=== PATIENT | female | born 1945 | race Caucasian/White ===

== ENCOUNTER 2020-01-15 16:00 | Inpatient (IN) | payer MEDICARE, SELFPAY ==
[2020-01-15 17:11] LABS: Bedside Glucose 167 mg/dL (70-110)
[2020-01-15 17:15] VITALS: BP 119/72; PULSE 86; RESP 16; TEMP 36.8; O2SAT 96; BMI 24.4; BMI 25.9
--- NOTE | 2020-01-15 17:49 | PCM.HP.STD ---
Problem List (1) Ischemic cerebrovascular accident (CVA) Status: Acute Comment: MRI on 01/02/20 shows multiple areas of restricted diffusion including the anterior corpus callosum, bilateral periventricular white matter, the left thalamus, left brachium pontis and the left cerebellum. These have been attributed to multiple ischemic infarcts more likely than not due to AF. (2) PAF (paroxysmal atrial fibrillation) Status: Acute Comment: recently started on Xarelto (3) Hyperlipidemia Status: Chronic Comment: LDL is 185 on lab at [facility] - she lists rosuvastatin as an allergy but cannot tell us the reaction. She has multiple allergies with unsure of reaction listed. (4) Diabetes mellitus type 2 in nonobese Status: Acute (5) Anticoagulated by anticoagulation treatment Status: Acute Comment: Xarelto - not on 15 mg BID initially...started on 20 mg daily at [facility] (6) Hypertension Status: Chronic (7) History of esophagitis Status: Chronic Comment: Had EGD in August and September 2008 pain History of Present Illness Date of Admission: 01/15/20 Chief Complaint: Disability secondary to multiple bilateral ischemic CVAs thought to be due to emboli secondary to paroxysmal atrial fibrillation. The patient is a 74 year old F with a past medical history of diabetes mellitus type 2, esophagitis, hyperlipidemia, hypertension, overactive bladder, anxiety and recent embolic CVA's in multiple BL areas. Her family reported to the [facility] that her speech has been slurred for about 6 months. She was started on Xarelto at the previous hospital. She was admitted to the IPRU at [facility] on for > 3 hours of therapy daily to restore her to or near to her prior level of functioning. Prior to the CVA's she was independent at home and in the community with no AD. She does the laundry and the cooking. She lives in a 2 story house the the bedroom is on the second floor. There is also a basement. Zena was apparently initially admitted to the hospital on 01/01/20 and tells me that she went to the ED because she fell and had R side weakness. She denies every being told she had AF. She also denies any hx of Blood clots or heart disease. She has never been a smoker. She tells me that she does not need to take a cholesterol lowering medication because the doctor said it would not fix the problem. All records from [facility] that came with her were reviewed. There are no labs other than a BMP and Lipid panel. The LDL is 185 and pt lists Crestor as an allergy but is not sure of the reaction. There is no MRI, CT, CTA, neurology consults, ECHO, H&P from the acute admission, DC summary and no other labs in the packet we were sent. She lists several ALLERGIES but, the sx are those of side effects and not rash, SOB, swelling. Past Medical History Past Medical History (Chronic Problems): Chronic Problems Hyperlipidemia (Chronic) LDL is 185 on lab at [facility] - she lists rosuvastatin as an allergy but cannot tell us the reaction. She has multiple allergies with unsure of reaction listed. Hypertension (Chronic) History of esophagitis (Chronic) Had EGD in August and September 2008 pain Allergies meperidine [From Demerol] Adverse Reaction (Mild, Verified 01/15/20 17:38) PT UNSURE OF REACTION dizzy caffeine Adverse Reaction (Verified 01/15/20 17:38) PT UNSURE OF REACTION chocolate flavor Adverse Reaction (Verified 01/15/20 17:38) PT UNSURE OF REACTION diphenhydramine [From Benadryl] Adverse Reaction (Verified 01/15/20 17:38) PT UNSURE OF REACTION Dizzy pioglitazone Adverse Reaction (Verified 01/15/20 17:38) PT UNSURE OF REACTION rosuvastatin Adverse Reaction (Verified 01/15/20 17:38) PT UNSURE OF REACTION Sulfa (Sulfonamide Antibiotics) Adverse Reaction (Verified 01/15/20 17:38) Nausea pablo tomatoes Adverse Reaction (Uncoded 01/15/20 17:38) PT UNSURE OF REACTION msg Adverse Reaction (Uncoded 01/15/20 17:38) PT UNSURE OF REACTION Home Medications: Ambulatory Orders Medication Instructions Recorded Aspirin [Aspirin, Baby] 81 mg PO DAILY@0800 01/15/20 Lisinopril [Zestril] 10 mg PO DAILY 01/15/20 Pantoprazole Sodium [Protonix] 40 mg PO DAILY 01/15/20 Rivaroxaban [Xarelto] 20 mg PO DAILY@1700 01/15/20 Surgical History: - - EGD X 2 in August and September of 2018. 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 Denies: Anorexia Eyes: Denies: Blurred vision, Double vision HEENT: Denies: Difficulty Swallowing, Head Aches, Sore Throat Cardiovascular: Denies: Chest Pain, Light Headedness, Palpitations Respiratory: Denies: Cough, Shortness of Breath Gastrointestinal: Denies: Abdominal Pain, Nausea, Vomiting Genitourinary: Reports: Incontinence. Denies: Dysuria Skin: Denies: Rash, Wounds Neurological: Reports: Balance problems, Change in Speech - but tells me that it is getting better., Focal weakness, - - she denies any problem with her thought processes. Denies: Difficulty swallowing, Seizures Psychiatric: Reports: Anxiety Hematologic/ Lymphatic: Denies: Hx of blood clot Unable to obtain accurate/complete ROS d/t: ROS is limited by encephalopathy due to CVA VTE Information - Inpt Only VTE Present on Admission: No VTE Mechan Device Prophylaxis: Knee High NEIL Hose VTE Pharm Prophylaxis ordered?: No Reason prophylaxis not ordered:: Treatment Not Indicated - She is on Xarelto Patient Problems: Active and Suspected Problems Ischemic cerebrovascular accident (CVA) (Acute) MRI on 01/02/20 shows multiple areas of restricted diffusion including the anterior corpus callosum, bilateral periventricular white matter, the left thalamus, left brachium pontis and the left cerebellum. These have been attributed to multiple ischemic infarcts more likely than not due to AF. PAF (paroxysmal atrial fibrillation) (Acute) recently started on Xarelto Diabetes mellitus type 2 in nonobese (Acute) Anticoagulated by anticoagulation treatment (Acute) Xarelto - not on 15 mg BID initially...started on 20 mg daily at [facility] - Physical Exam Vitals/I&O's: Vital Signs Temp Pulse Resp BP Pulse Ox 98.3 F 86 16 119/72 96 01/15/20 17:15 01/15/20 17:15 01/15/20 17:15 01/15/20 17:15 01/15/20 17:15 Oxygen Delivery Method Room Air Weight: 155 lb 10.342 oz Body Mass Index (BMI) 24.3 General: Alert, Cooperative, Well developed, Well nourished, - - drowsy, speech is somewhat slurred but intelligible. she is oriented to person and she knows that She is in the hospital at [place]. She can not tell me the month and she told me the year is 2001. she knows she is 74 YO. She is slow to answer questions. HEENT: Atraumatic, PERRLA, EOMI, Normocephalic, - - She is having trouble holding her head up and her chin is resting close to her chest most of the time Oral: No Gingival or Mucosal Lesions/ Ulcerations, Dry Mucosa Neck: Supple, No JVD, Negative Carotid Bruits, No Nodes, No Nuchal Rigidity, Trachea Midline, - - Carotids had brisk upstroke and good pulse volume bilaterally Lungs: Clear to auscultation, Diminished - jareth in the bases....only fair inspiratory effort. Her head is bent forward. She is not tachypneic and has no nconversational dyspnea., - - There is symmetrical chest expansion. Cardiovascular: Regular rate, Regular Rhythm, Normal S1, Normal S2, No murmurs, No Ectopic Activity, No rub noted, No Gallop Abdomen: Bowel Sounds Present, Soft, Non Tender, Non-Distended, - - No guarding with palpation Extremities: No clubbing, No cyanosis, No edema, No Calf Tenderness, Peripheral Pulses Normal Skin: No rashes, No breakdown - her bottom is reddened due to incontinence of urine ......no openings in the skin. Musculoskeletal: No Muscle Wasting, Arthritic Changes Neurological: Cranial nerves II-XII grossly intact - there is no facial asymmetry, the tongue protrudes on the midline, speech is slow but intelligible, - - She has 5/5 strength in the RUE and the R LE. She is able to lift the L arm off the bed a bit but, it drifts down to the bed prior to reaching a count of 10. She has 0/5 strength in the L leg. She has R side neglect. Unable to accurately assess the visual castaneda because she is unable to focus on me and she follows my hand. She blinks BL with confrontation. The left hand is held in flexion but she can extend the wrist a little. She is able to follow simple commands Psych/Mental Status: Flat Affect Laboratory Results 01/15/20 16:59: POC Glucose 167 H Current Medications Aspirin (Aspirin, Baby) 81 mg PO DAILY@0800 [facility] Calamine/Phenol (Calmoseptine Ointment) 1 applic TOPICAL BID TOMI; Protocol Insulin Human Lispro (Humalog Kwikpen (Bkc)) 0 unit SC ACHS TOMI; Protocol Lisinopril (Zestril) 10 mg PO DAILY TOMI Pantoprazole Sodium (Protonix) 40 mg PO DAILY TOMI Rivaroxaban (Xarelto) 20 mg PO DAILY@1700 [facility] Assessment/Plan All Active Problems Ischemic cerebrovascular accident (CVA) (Acute) PAF (paroxysmal atrial fibrillation) (Acute) Diabetes mellitus type 2 in nonobese (Acute) Anticoagulated by anticoagulation treatment (Acute) Impression 1. post stroke debility - We do not have adequate information from Previous hospital re: presentation to the ED on 12/31, why she is on Xarelto. I presume she has AF but, she denies a hx of AF. I have no CT and no MRI reports, no ECHO, no neurology consult and no cardiology consult report. Will requisition these from [facility]. 2. HTN 3. DM II 4. hx of esophagitis - on a PPI 5. hx of anxiety 6. HLD - not on a statin. LDL was 185 at [facility] and this is the only lab we got. PLAN PT for gait stability OT for ADL's ST for evaluation Analgesics as needed Bowel protocol Fall precautions Assess for Anxiety/Depression Continue Protonix 40 mg daily No DVT prophylaxis is needed because the patient is on Xarelto 20 mg p.o. daily Follow up with neurology and her primary care physician following DC from Rehab. May also need to follow up with cardiology if she has PAF. Check a CBC, CMP, hemoglobin A1c, TSH and a full lipid panel in the a.m. Hold oral hypoglycemic agents for now because I am unsure of how much she is going to take p.o. Will start a low medium sliding scale for insulin coverage. Consider starting an SSRI for treatment of anxiety/depression. It has been 2 weeks now since presentation to the hospital emergency room for stroke. Will adjust antihypertensives to keep the blood pressure less than 130/80. Goal LDL will be 70 or less Will talk with her dtr after I review her lab in the AM Inpatient E&M: [id number] Init Hosp L3
--- NOTE | 2020-01-15 17:58 | PCM.RU.PYE ---
Admission Information Primary Diagnosis:: Debility secondary to recent multiple bilateral embolic CVAs due to paroxysmal atrial fibrillation? Actual Problem List:: Falls, Skin Intergrity, Cognitve Impr/Memory Loss, Depression, Bladder Incontinence, Mobility Impaired, Self Care Deficit, BP, Hypertension, Fluid Change-Dehydration, Alteration-Leisure Activ. Potential Problem List:: DVT, Bleeding, Infection, UTI, Aspiration, Falls, Skin Integrity, Depression Risk of Complications DVT: NEIL Hightower, - - No DVT prophylaxis needed because she is on Xarelto 20 mg p.o. daily Bleeding: Monitor Lab Values, Nursing to Teach Precautions for anti-coagulation therapy., Wound, if applicable, to be assessed every shift., Stroke patients assessed for lethargy or change in status. Infection: Clinical Staff to Monitor for S/S of infection:, S/S of infection include fever, redness, warmth, etc. Urinary Tract Infection: Monitor for frequency, burning, discomfort, or incontinence., Nursing will obtain urine sample for urinalysis and C&S when ordered. Aspiration: Clinical staff will monitor for coughing, drooling, congestion., Speech will evaluate swallowing and dsyphasia., Nursing will monitor patient swallowing during meals. Falls: Patient will be evaluated for Fall Precautions, Patient will be placed on Fall Precautions as indicated per protocol. Skin Breakdown: Nursing will assess skin daily using assessment tool., Nursing will place on Skin Breakdown Precautions as indicated. Pain: Clinical staff will assess patient's pain level per protocol., Medications will be given, if needed, and the pain level reassessed., Other methods: Massage, distraction, decrease stimulus, etc. used PRN. Plan of Care Patient requires physician specializing in physical medicine and rehab oversight to provide close medical supervision of rehab issues including: Pain Management, Sleep Problems, Bowel and Bladder, Medical and co-morbidity Management, DVT prophylaxis, Rehabilitation Leadership, Coordination of treatment team Patient needs Physical Therapy: For a minimum of 1 hour, At least 5 out of 7 days Patient needs Physical Therapy to improve:: Mobility, Mobility, Mobility, Strengthening, Transfers, Stretching, ROM, Endurance, Stairs, Gait, Balance Patient needs Occupational Therapy: For a minimum of 1 hour, At least 5 out of 7 days Patient needs Occupational Therapy to improve ADL's incl.: Eating, Grooming, Bathing, Dressing, Toileting, Toilet transfers, Community Reintegration, Higher functioning activities, Household tasks, Adaptive Equipment, Splinting, Other activities as determined Patient requires speech therapy: For a minimum of 1 hour, At least 5 out of 7 days Patient requires speech therapy for: Swallowing, Cognition, Language Skills, Compensatory Strategies Patient requires 24/7 Rehabilitation Nursing for: Pain Issues, Identifying and preventing risk factors, Monitoring and reporting current medical conditions, Assisting with ambulation, transfer, and all ADL's, Teaching patients about disease process and medications, Family teaching, Providing safe environment, Bowel and Bladder Issues, Skin integrity, Medication Management Patient needs Automatic Die Cutting Machine Operator/ Case Management for: Discharge Planning, Arranging Home Equipment or Services, Family Interventions Patient needs Dietary and Nutrition Services for: Adequate Nutrition, Nutritional Supplements, Nutritional Education Goals Patient will remain: free from falls, or injury at time of discharge. Patient will perform bed mobility at: MOD I level of assist. Patient will complete transfers from bed to chair at: MOD I level of assist. Patient will ambulate: 100 feet, with MOD I assist, with LRD Patient will complete upper body dressing at: MOD I level of assist. Patient will complete lower body dressing at: MOD I level of assist. Patient will complete toileting at: MOD I level of assist. Patient will perform bathing at: MOD I level of assist. Patient will complete grooming at: MOD I level of assist. Patient will complete home management skills at: MOD I level of assist. Patient will achieve: 12 stairs, at MOD I assist Patient will have pain level of: of 3 or less Patient's skin will: remain intact, free from infection. Patient will receive: adequate nutrition. Discharge Planning Pt Prognosis for Sig. Practical Improv. w/in Reasonable Time: Good Estimated Length of stay (days): 28 Anticipated D/C Destination: To be determined Was Preadmission Assessment Accurate?: Yes
[2020-01-15] MEDS: Rivaroxaban 20 MG Tablet PO (19:07)
[2020-01-15] MEDS: Insulin Lispro 100 UNIT/ML INSULN.PEN SC ×2 (19:08→21:31)
[2020-01-15] MEDS: Glucerna Shake 120 ML LIQUID PO ×2 (19:10→21:28)
[2020-01-15 19:15] VITALS: BP 148/79; PULSE 84; RESP 16; TEMP 36.7; O2SAT 97
[2020-01-15] MEDS: Menthol/Lanolin/Calamine/Znox 113 GM Tube 1 APPLIC TOPICAL (21:28)
[2020-01-15] MEDS: Senna/Docusate Sodium 1 Tablet 2 TABLET PO (21:29)
[2020-01-15 21:56] LABS: Bedside Glucose 244 mg/dL (70-110)
[2020-01-16 01:23] VITALS: BMI 24.3
--- NOTE | 2020-01-16 03:37 | NURSING ---
pt awake since 0200 rounds pushing call light multiple times an hour and denies needs. pt repositioned and attends changed. fluids given. denies pain. pt denies television for entertainment. will continue to monitor.
[2020-01-16 06:09] VITALS: O2SAT 95
[2020-01-16 06:22] LABS: Hemoglobin 13.3 g/dL (12.0-15.0); Mean Corp Hgb Conc 32.4 g/dL (32-36); Mean Corpuscular Hgb 30.8 pg (27.0-32.0); Mean Corpuscular Volume 94.9 fL (81-99); Mean Platelet Vol. 10.3 fl (6.2-12.0); Platelet Count 404 K/mm3 (150-450); RBC Distribution Width CV 13.2 % (11.6-14.6); RBC Distribution Width SD 46.3 fl (35.1-43.9); Red Blood Count 4.32 M/mm3 (4.2-5.4); White Blood Count 9.7 K/mm3 (4.4-11.0)
[2020-01-16 06:40] VITALS: O2SAT 95
[2020-01-16 06:57] LABS: ALB/GLOB Ratio 0.8 RATIO (0.9-2.4); AST(SGOT) 10 U/L (15-37); Alanine Aminotransfer ALT/SGPT 23 U/L (13-56); Albumin, Serum 3.3 g/dL (3.2-5.0); Alkaline Phosphatase 64 U/L (45-117); Anion Gap 6 (5-15); BUN 21 mg/dL (7-18); BUN/Creat Ratio 22.5 RATIO (10-20); Calcium,Total 9.1 mg/dL (8.5-10.1); Chloride 104 mmol/L (98-107); Creatinine, Serum 0.93 mg/dL (0.55-1.02); EST Glomerular Filtration Rate 63 mL/min (>60); Est Glom Filt Rate - Afr Amer 76 mL/min (>60); Estimated Creatinine Clearance 52.39 ml/min; Glucose 211 mg/dL (74-106); Magnesium 2.2 mg/dL (1.6-2.6); Phosphorus 3.7 mg/dL (2.5-4.9); Potassium 4.2 mmol/L (3.5-5.1); Protein, Total 7.3 g/dL (6.4-8.2); Sodium Level 135 mmol/L (136-145); Thyroid Stim Hormone (TSH) 2.34 uIU/mL (0.358-3.74)
[2020-01-16 07:00] VITALS: BP 145/83; PULSE 84; RESP 18; TEMP 36.9; O2SAT 94
[2020-01-16 07:01] LABS: Bedside Glucose 231 mg/dL (70-110)
--- NOTE | 2020-01-16 07:18 | PCM.PN.BLA ---
Progress Note Afebrile Maintaining appropriate oxygen saturation on room air Poor oral intake since admission yesterday afternoon. Medication list was reviewed. We are holding the Glipizide because we are unsure of what her intake is going to be and she is at risk for hypoglycemia. She is currently on Xarelto 20 mg daily for anticoagulation for embolic CVAs. She is on lisinopril 10 mg daily for blood pressure control and she is on aspirin 81 mg daily. She is not on a statin despite the fact that her LDL is 185 because she is supposedly allergic. Has not been seen by PT/OT or ST yet...this will happen today. Nursing reports that she has been awake since 2 AM. Pushing the call button frequently. Was incontinent last night. They also tell me that the urine is very strong/foul smelling. We were able to obtain additional records from [facility] today and I reviewed them. She had a CT brain on 01/01/2020 that showed no acute intracranial abnormality but did show remote lacunar infarcts versus dilated perivascular spaces in the bilateral periventricular white matter. Transthoracic echocardiogram showed a normal ejection fraction of 60 to 65% with no wall motion abnormalities. The right ventricular systolic pressure was estimated at 24 mmHg. There was no interatrial shunt. There was trivial aortic valve insufficiency. The atria were normal in size. Bilateral carotid duplex shows the right internal carotid to have a 1 to 39% stenosis. The right vertebral artery was patent. The left internal carotid showed 1 to 39% stenosis. The left vertebral artery was patent but there were abnormal, high resistant waveforms noted. There was no hemodynamically significant stenosis in either subclavian artery. MRI showed multifocal areas of vague T2 prolongation and restricted diffusion in the anterior corpus callosum, the bilateral periventricular white matter, the left thalamus, the left brachium pontis and the left cerebellum. I suspect these represent lacunar infarcts. Reportedly these are embolic however, we received no history and physical, no DC summary and no cardiology or neurology consults. Will have to request these from [facility] All lab was personally reviewed. CBC is unremarkable. Sodium is mildly decreased at 135 and the BUN is increased to 21 with a creatinine of 0.93. LFTs are normal. Phosphorus and magnesium are within normal limits. TSH is normal at 2.34. Fasting blood sugar today is 231. She is currently on a sliding scale insulin for coverage until we see how much she is going to eat. HGBA1C is 7.1. TSH is normal at 2.34. Total cholesterol is 213 with an LDL of 136 and an HDL of 40. Triglycerides are 183. She seems very tired today.. She has been up since 2 AM and she tells me should woke up because there were kids in the gruber making noise and laughing. Lungs have diminished breath sounds with fair inspiratory effort and no wheezes, rhonchi or rails. Heart-regular rate and rhythm, no murmur, no gallop Abdomen-soft, nontender, nondistended, no guarding with palpation, no masses appreciated No peripheral edema Denies calf tenderness Persistent severe weakness on the left side with left side neglect I spoke with Zena's daughter Rachael and got some additional history. Zena had polio when she was very young and has had some increased weakness on the left side since then. She did not require an assistive device to ambulate at home. She also had esophagitis, likely due to reflux and has had her esophagus dilated twice. She was walking for 2 days after presenting to the ED but they declined. Rachael does not know when she was started on the Xarelto. AF was mentioned to Rachael but, she does not know for sure if Zena has this. Her mother has always been anxious but, she does not want to take medications, for anything. She is sensitive to all medication and develops allergies soon after she starts the medications. The reactions to the medications are vague and may be more imagined than real. Impressions 1. Post stroke debility. On the MRI report, dated 01/02/20, she had many BL lacunar infarcts but, she was still ambulatory at that time and now she has dense hemiparesis of the Left side Leg> arm and she has left side neglect. The CT was done on the and we did not receive any additional imaging reports. 2. remote hx of polio with some mild residual left side weakness. 3. DM II - non-compliant with diet per her dtr 4. HLD - supposedly intolerant of statins due to blurred vision and leg weakness.......not known to be SE's of crestor. She denies myalgia. 5. HTN - not adequately controlled. goal is less than 130/80 6. Hx of esophagitis, more likely than not secondary to chronic reflux. She has had esophageal dilation x2 in the past and she is chronically on Protonix 7. anxiety/depression - dtr reports that she had a nervous breakdown in the past about 50 years ago. She does not want to take medications so she is not on any pharmacologic treatment for anxiety or depression. 8.. cognitive dysfunction 9. Dehydration with an elevated BUN/creatinine ratio and very dry mucous membranes. Noncontrasted CT brain today since the weakness on the left side is profound and she has left-sided neglect I suspect she had a fairly large CVA and she is currently on Xarelto. Need to rule out hemorrhagic transformation. Start sertraline 50 mg p.o. daily Seroquel 12.5 mg p.o. nightly Start atorvastatin, medium intensity, 40 mg daily. Monitor for any adverse side effects Normal saline 500 cc bolus and then 75 cc/h Repeat BMP in the a.m. will need to follow up with neurology post DC Try and get EKG's, cardiology report on rhythm while at [facility]. Also request any the neurology notes. Overnight trending pulse ox Spent 60 minutes in the care of this pt today, talking with the dtr for hx, reviewing records from [place] we just received today, talking with the patient and re-examining, discussing treating anx/dep since depression is so common in post stroke patients and it affects recovery and prognosis. STROKE Vital Signs/Narrative: Vital Signs Pulse Ox 01/16/20 06:40 95 01/16/20 06:09 95 Inpatient E&M: [id number] Subs Hosp L3
[2020-01-16 08:06] LABS: Hemoglobin A1c 7.1 % (3.8-5.6)
[2020-01-16 08:24] LABS: Cholesterol 213 mg/dL (200); High Density Lipoprotein 40 mg/dL; Triglycerides 183 mg/dL; Very Low Density Lipoprotein 37 mg/dL (5-40)
[2020-01-16] MEDS: Lisinopril 10 MG Tablet PO (09:30)
[2020-01-16] MEDS: Insulin Lispro 100 UNIT/ML INSULN.PEN SC ×4 (09:30→22:09)
[2020-01-16] MEDS: Sertraline 50 MG Tablet PO (09:30)
[2020-01-16] MEDS: Aspirin 81 MG TAB.CHEW PO (09:30)
[2020-01-16] MEDS: Pantoprazole Sodium 40 MG Tablet PO (09:30)
[2020-01-16] MEDS: Menthol/Lanolin/Calamine/Znox 113 GM Tube 1 APPLIC TOPICAL ×2 (09:31→22:10)
[2020-01-16] MEDS: Glucerna Shake 120 ML LIQUID PO (09:31)
[2020-01-16 09:33] LABS: Mucous, Urine 0 SEEN /hpf (<or=2+); Red Blood Cells-Urine 0 SEEN /hpf (0-5); Squamous Epithelial Cells - UA 0 SEEN /hpf (5-10)
[2020-01-16 09:36] LABS: Color, Urine Yellow (Yellow); Glucose, Dipstick 1000 mg/dl (Normal); Ketone-Dipstick Negative (Negative); Leukocyte Esterase-Dipstick 25 /ul (Negative); Nitrite-Dipstick Positive (Negative); Occult Blood-Urine 50 /ul (Negative); Protein-Dipstick Negative (Negative); Specific Gravity, Urine 1.015 (1.002-1.030); Urine Bilirubin Dipstick Negative (Negative); Urine Clarity Clear (Clear); Urine Urobilinogen Normal (Normal)
[2020-01-16 09:42] LABS: Bacteria 2+ /hpf (None Seen); White Blood Cells 0-5 SEEN /hpf (0-5)
[2020-01-16] MEDS: 0.9% Normal Saline 1,000 ML 75 ML IV (10:30)
[2020-01-16 11:31] LABS: Bedside Glucose 248 mg/dL (70-110)
--- NOTE | 2020-01-16 12:16 | CT_ITS ---
STUDY: CT BRAIN WITHOUT CONTRAST REASON FOR EXAM: Female, 74 years old. POST CVA, ON THINNERS RADIATION DOSAGE (If Supplied By Facility): CTDIvol = ( 44.99 ) mGy, DLP = ( 745.49 ) mGycm TECHNIQUE: Transaxial CT imaging of the brain was performed without administration of intravenous contrast material. Individualized dose optimization techniques were used for this CT. COMPARISON: No relevant priors. FINDINGS: Normal soft tissue structures. Normal calvarium. There are atheromatous calcifications in the cavernous segments of the bilateral internal carotid arteries. There is mild cerebral atrophy with widening of the extra-axial spaces and ventricular dilatation. There are areas of decreased attenuation within the white matter tracts of the supratentorial brain, consistent with microvascular disease changes. More defined old lacunar infarcts are noted in the bilateral periventricular white matter as well one of these sites, on the right, extends into the upper aspect of the lateral basal ganglia. Chronic ischemic changes also noted in the anterior aspect of the bilateral thalami. Normal brainstem. Mild encephalomalacia suggesting old cortical infarct noted also in the lateral periphery of the left cerebellar hemisphere. There is no intracranial hemorrhage. There are no findings of an acute ischemic infarction. There is retained mucus in the posterior right sphenoid sinus. Otherwise, normal visualized paranasal sinuses. CT/Brain/Head without Contrast IMPRESSION: 1. Chronic involutional and ischemic changes of the brain, as described. No acute intracranial pathology. 2. Retained mucus in the posterior right sphenoid sinus. Electronically Signed: Jesus Fernandez MD at 14:50 EDT , Service support ,
[2020-01-16 14:53] VITALS: BMI 24.3
--- NOTE | 2020-01-16 15:46 | CHAPLAIN ---
Type of Pastoral Visit _x__ Initial Visit ___ Follow-up Visit ___ On-call Visit ___ General Patient Visit ___ Spiritual Assessment ___ Family Conference ___ Bereavement ___ Rapid Response ___ Code Blue ___ Other (describe below) Pastoral Care Referral From _x__ Patient _x__ Family ___ Nurse ___ Physician ___ Fur Sewer ___ Zigzag Appliquer ___ Other (describe below) Sacrament/Intervention ___ Active listening ___ Anointing ___ Anabaptism ___ Bereavement ___ Communion ___ Hannah exploration ___ ___ Life review _x__ Prayer ___ Reconciliation ___ Sacrament of Sick _x__ Supportive presence ___ Wedding ___ Other (describe below) Pastoral Comments patient responds appropriately to questions but does not engage much in conversation; pt is open to visits in the future
[2020-01-16 16:50] LABS: Bedside Glucose 222 mg/dL (70-110)
[2020-01-16] MEDS: Rivaroxaban 20 MG Tablet PO (17:51)
[2020-01-16 19:11] VITALS: BP 155/80; PULSE 84; RESP 16; TEMP 36.7; O2SAT 96
[2020-01-16] MEDS: 0.9% Normal Saline 1,000 ML 999 ML IV (19:59)
[2020-01-16 21:39] VITALS: PULSE 84; O2SAT 98
[2020-01-16] MEDS: QUEtiapine 25 MG Tablet 12.5 MG PO (22:08)
[2020-01-16] MEDS: Senna/Docusate Sodium 1 Tablet 2 TABLET PO (22:08)
[2020-01-16] MEDS: Atorvastatin Calcium 40 MG Tablet PO (22:09)
[2020-01-16] MEDS: Cefadroxil 500 MG CAPSULE 1000 MG PO (22:10)
[2020-01-16 23:15] LABS: Bedside Glucose 175 mg/dL (70-110)
[2020-01-17 05:00] VITALS: BMI 24.3
[2020-01-17 07:16] LABS: Bedside Glucose 192 mg/dL (70-110)
[2020-01-17 07:29] VITALS: O2SAT 96
[2020-01-17 07:34] LABS: Anion Gap 7 (5-15); BUN 18 mg/dL (7-18); BUN/Creat Ratio 20.4 RATIO (10-20); Calcium,Total 8.8 mg/dL (8.5-10.1); Chloride 108 mmol/L (98-107); Creatinine, Serum 0.88 mg/dL (0.55-1.02); EST Glomerular Filtration Rate 67 mL/min (>60); Est Glom Filt Rate - Afr Amer 81 mL/min (>60); Estimated Creatinine Clearance 51.23 ml/min; Glucose 176 mg/dL (74-106); Potassium 4.1 mmol/L (3.5-5.1); Sodium Level 139 mmol/L (136-145)
[2020-01-17] MEDS: Insulin Lispro 100 UNIT/ML INSULN.PEN SC ×4 (08:10→21:15)
[2020-01-17] MEDS: Menthol/Lanolin/Calamine/Znox 113 GM Tube 1 APPLIC TOPICAL ×2 (08:11→21:14)
[2020-01-17] MEDS: Aspirin 81 MG TAB.CHEW PO (08:11)
[2020-01-17] MEDS: Sertraline 50 MG Tablet PO (08:12)
[2020-01-17] MEDS: Pantoprazole Sodium 40 MG Tablet PO (08:12)
[2020-01-17] MEDS: Senna/Docusate Sodium 1 Tablet 2 TABLET PO ×2 (08:12→21:15)
[2020-01-17] MEDS: Lisinopril 20 MG Tablet PO (08:12)
[2020-01-17] MEDS: Cefadroxil 500 MG CAPSULE 1000 MG PO ×2 (08:12→21:14)
[2020-01-17 10:00] VITALS: BP 155/80; PULSE 90; RESP 16; TEMP 36.6; O2SAT 97
[2020-01-17 12:20] LABS: Bedside Glucose 224 mg/dL (70-110)
[2020-01-17 13:59] VITALS: BMI 24.3
[2020-01-17 16:46] LABS: Bedside Glucose 150 mg/dL (70-110)
[2020-01-17] MEDS: Rivaroxaban 20 MG Tablet PO (17:29)
[2020-01-17 18:47] VITALS: BP 169/99; PULSE 77; RESP 16; TEMP 36.8; O2SAT 96
[2020-01-17 19:47] VITALS: BMI 24.3
[2020-01-17] MEDS: Atorvastatin Calcium 40 MG Tablet PO (21:14)
[2020-01-17] MEDS: QUEtiapine 25 MG Tablet 12.5 MG PO (21:17)
[2020-01-17 22:41] LABS: Bedside Glucose 192 mg/dL (70-110)
[2020-01-17] MEDS: 0.9% Saline Lock 10 ML Syringe IV (22:58)
[2020-01-18 07:05] LABS: Bedside Glucose 173 mg/dL (70-110)
[2020-01-18] MEDS: Insulin Lispro 100 UNIT/ML INSULN.PEN SC ×3 (08:00→21:05)
[2020-01-18] MEDS: Aspirin 81 MG TAB.CHEW PO (08:00)
[2020-01-18] MEDS: Cefadroxil 500 MG CAPSULE 1000 MG PO ×2 (08:00→21:03)
[2020-01-18] MEDS: Pantoprazole Sodium 40 MG Tablet PO (08:00)
[2020-01-18] MEDS: Sertraline 50 MG Tablet PO (08:01)
[2020-01-18] MEDS: Lisinopril 20 MG Tablet PO (08:01)
[2020-01-18] MEDS: Menthol/Lanolin/Calamine/Znox 113 GM Tube 1 APPLIC TOPICAL ×2 (08:07→21:03)
[2020-01-18 08:14] VITALS: BP 151/96; PULSE 73; RESP 16; TEMP 36.8; O2SAT 97
[2020-01-18 11:31] LABS: Bedside Glucose 356 mg/dL (70-110)
[2020-01-18 12:59] VITALS: O2SAT 96
[2020-01-18 16:55] LABS: Bedside Glucose 141 mg/dL (70-110)
[2020-01-18 17:00] VITALS: BMI 24.3
[2020-01-18] MEDS: Rivaroxaban 20 MG Tablet PO (17:10)
[2020-01-18] MEDS: Atorvastatin Calcium 40 MG Tablet PO (21:03)
[2020-01-18] MEDS: QUEtiapine 25 MG Tablet 12.5 MG PO (21:03)
[2020-01-18 21:22] VITALS: BP 160/80; PULSE 77; RESP 16; TEMP 36.6; O2SAT 97
[2020-01-18 21:55] LABS: Bedside Glucose 183 mg/dL (70-110)
[2020-01-19 00:16] VITALS: BMI 24.3
[2020-01-19 06:36] LABS: Bedside Glucose 178 mg/dL (70-110)
[2020-01-19 07:14] VITALS: O2SAT 94
[2020-01-19 07:50] VITALS: BP 128/68; PULSE 75; RESP 16; TEMP 36.8; O2SAT 97
--- NOTE | 2020-01-19 07:50 | PN_ITS ---
Progress Note Day #4 cefadroxil Afebrile Systolic blood pressure is high and has ranged from 145/83-160 9/99 over the past few days. She is maintaining appropriate oxygen saturation on room air. Poor to fair oral intake. Nursing has been encouraged her to increase her fluid intake. Incontinent of urine Blood sugar record was reviewed. The majority of blood sugars are under 200 but yesterday at noon she had a blood sugar of 356. The overnight trending pulse ox was reviewed. 99.26% of the time the oxygen saturation above 90 but she had 1 desaturation to 68 that lasted 1 minute and 52 seconds and 1 desaturation to 57 with a heart rate of 33 four 1 minute at 42 seconds. Urine culture is positive for E. coli, greater than 100,000 colonies. It is p ansensitive. therapy notes were reviewed and also the nursing notes. She denies chest pain, shortness of breath, cough, sore throat, nausea, abdominal pain, dysuria, lightheadedness. She states she is still having some difficulty sleeping at night due to the noise from the door banging and voices in the gruber. She is sitting in the recliner by the window and appears in no acute distress. She is alert and oriented to person, place, month and year. She is still somewhat slow to respond to questions and commands. She is pleasant Speech is fluid. Mucous membranes are still a little dry. I encouraged her to increase her fluid intake. Lungs - CTA Heart-regular rate and rhythm, no ectopy, no atrial fibrillation, no gallop, no murmur Abdomen-soft, nontender, nondistended, normal bowel sounds heard No peripheral edema She is able to lift the left arm up on command and she was able to move her foot on the left but not able to lift the leg from the leg support. She has 5/5 strength on the right. Impressions 1. Post stroke debility-multiple small lacunar infarcts on both sides of the cerebral hemispheres and also in the midbrain presumed to be secondary to atrial fibrillation 2. Remote history of polio at 7 years of age 3. Diabetes mellitus type 2 4. Hypertension 5. Hyperlipidemia 6. 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 Sleep disordered breathing- Oral intake has been pretty good so will restart glipizide 5 mg twice daily and continue the sliding insulin scale for now. Blood pressures are consistently higher than I would like to see them. She is currently only on lisinopril 20 mg daily. Will add metoprolol XL 25 mg daily and continue to monitor blood pressures Recheck BMP in the a.m. she is going to need to see cariology following DC. She needs a 30 day even monitor and possibly a stress test to r/o ischemia as the etiology of suspected AF. TSH and mag were normal. Order oxygen at night and will need a sleep study post DC. STROKE Vital Signs/Narrative: Vital Signs Pulse Ox 01/19/20 07:14 94 Inpatient E&M: 54988 Subs Hosp L2
[2020-01-19] MEDS: Insulin Lispro 100 UNIT/ML INSULN.PEN SC ×4 (07:54→22:10)
[2020-01-19] MEDS: Pantoprazole Sodium 40 MG Tablet PO (07:55)
[2020-01-19] MEDS: Cefadroxil 500 MG CAPSULE 1000 MG PO ×2 (07:55→22:11)
[2020-01-19] MEDS: Lisinopril 20 MG Tablet PO (07:55)
[2020-01-19] MEDS: Aspirin 81 MG TAB.CHEW PO (07:55)
[2020-01-19] MEDS: Sertraline 50 MG Tablet PO (07:56)
[2020-01-19] MEDS: Menthol/Lanolin/Calamine/Znox 113 GM Tube 1 APPLIC TOPICAL ×2 (08:00→22:12)
[2020-01-19 08:43] VITALS: BMI 24.3
[2020-01-19 10:09] VITALS: BP 128/68; PULSE 75
[2020-01-19] MEDS: Metoprolol(XL)Succ 25 MG Tablet PO (10:09)
[2020-01-19 12:15] LABS: Bedside Glucose 292 mg/dL (70-110)
[2020-01-19] MEDS: 0.9% Saline Lock 10 ML Syringe IV ×2 (14:27→22:20)
[2020-01-19] MEDS: glipiZIDE 5 MG Tablet PO (16:34)
[2020-01-19] MEDS: Rivaroxaban 20 MG Tablet PO (16:37)
[2020-01-19 16:46] LABS: Bedside Glucose 257 mg/dL (70-110)
[2020-01-19 18:59] VITALS: BP 138/89; PULSE 90; RESP 16; TEMP 36.8; O2SAT 95
[2020-01-19 20:50] LABS: Bedside Glucose 162 mg/dL (70-110)
[2020-01-19] MEDS: QUEtiapine 25 MG Tablet 12.5 MG PO (22:09)
[2020-01-19] MEDS: Senna/Docusate Sodium 1 Tablet 2 TABLET PO (22:10)
[2020-01-19] MEDS: Atorvastatin Calcium 40 MG Tablet PO (22:10)
[2020-01-20 05:00] VITALS: BMI 24.3
[2020-01-20 06:11] LABS: Anion Gap 7 (5-15); BUN 22 mg/dL (7-18); BUN/Creat Ratio 22.1 RATIO (10-20); Calcium,Total 8.9 mg/dL (8.5-10.1); Chloride 104 mmol/L (98-107); EST Glomerular Filtration Rate 58 mL/min (>60); Est Glom Filt Rate - Afr Amer 70 mL/min (>60); Estimated Creatinine Clearance 45.09 ml/min; Glucose 173 mg/dL (74-106); Potassium 4.2 mmol/L (3.5-5.1); Sodium Level 137 mmol/L (136-145)
[2020-01-20 06:30] LABS: Bedside Glucose 169 mg/dL (70-110)
[2020-01-20 07:22] VITALS: BP 129/69; PULSE 74; RESP 16; TEMP 36.8; O2SAT 97
[2020-01-20] MEDS: Insulin Lispro 100 UNIT/ML INSULN.PEN SC ×3 (07:49→16:37)
[2020-01-20] MEDS: Senna/Docusate Sodium 1 Tablet 2 TABLET PO ×2 (07:50→22:49)
[2020-01-20] MEDS: Pantoprazole Sodium 40 MG Tablet PO (07:50)
[2020-01-20] MEDS: Cefadroxil 500 MG CAPSULE 1000 MG PO ×2 (07:50→22:50)
[2020-01-20] MEDS: Aspirin 81 MG TAB.CHEW PO (07:50)
[2020-01-20 07:51] VITALS: BP 129/69; PULSE 74
[2020-01-20] MEDS: Lisinopril 20 MG Tablet PO (07:51)
[2020-01-20] MEDS: Metoprolol(XL)Succ 25 MG Tablet PO (07:51)
[2020-01-20] MEDS: Sertraline 50 MG Tablet PO (07:51)
[2020-01-20 07:55] VITALS: BMI 24.3
[2020-01-20] MEDS: glipiZIDE 5 MG Tablet PO ×2 (07:57→16:37)
[2020-01-20] MEDS: Menthol/Lanolin/Calamine/Znox 113 GM Tube 1 APPLIC TOPICAL ×2 (08:00→22:50)
[2020-01-20] MEDS: 0.9% Saline Lock 10 ML Syringe IV (08:12)
--- NOTE | 2020-01-20 08:44 | PN_ITS ---
Progress Note Pt was seen on TEAM rounds today. Her Danny was present in the room.....pt is anxious abput not seeing her family and I thought it would help with depression. Dtr Aileen was on the phone. Day #5/7 of cefadroxil for E. coli urinary tract infection Afebrile VSS - BP's are coming down with the addition of Metoprolol to the antihypertens jose daniel regimen. Maintaining appropriate oxygen saturation on RA Oral intake is poor. Needing lots of encouragement to increase her fluid intake. Continues to be incontinent of urine. Having residuals - the one nursing was able to obtain was 95....difficult due to incontinence Discussed with nursing - no problems that need addressed Reviewed the PT/OT/ST notes and listened to the presentations on TEAM rounds. Medication list reviewed. Blood sugar record was reviewed. At bedtime sugar was 162 and the a.m. blood sugar was 169. Glipizide was restarted yesterday. All lab was personally reviewed. Potassium is 4.2 and the sodium is 137. BUN is 22 with a creatinine of 1 and a BUN/creatinine ratio of 22.1. alert, appropriate, eye contact is a little better than at admission when I am talking with her. MM - dry Heart- RRR Lungs - CTA abd - soft NT, ND, normal BS's no peripheral edema no rashes and no skin breakdown Impressions 1. debility due to multiple lacunar infarcts in BL areas of the brain. 2. Left side neglect with dense hemiparesis on the left, Leg > arm 3. DM II - coming under better control with restarting Glipizide. She is a good eater but, does not like to drink water. I encouraged her to increase her fluid intake. Will run IV NS overnight and hold during the day when she is in therapy. 4. Dehydration due to poor oral intake......continue to encourage her to increase the fluid intake. 5. HLD - she is tolerating the Atorvastatin with no adverse reactions reported. 6. Cognitive dysfunction secondary to having multiple embolic CVAs -there is potential here for multi-infarct dementia, will continue with speech therapy and right cognition 7. Sleep disordered breathing-2 L of oxygen anytime she is sleeping and will need a formal sleep study when she is discharged STROKE Vital Signs/Narrative: Vital Signs Temp Pulse Resp BP Pulse Ox 01/20/20 07:51 74 129/69 H 01/20/20 07:22 98.2 F 74 16 129/69 H 97 Inpatient E&M: [id number] Subs Hosp L2
--- NOTE | 2020-01-20 10:35 | CASEMGMT ---
Social Work IDT met with patient, and daughter via conference call for Team Meeting. Discussed patient's progress in therapy/ Pt is max x2 for transfers, leans heavily to the left, using Saralift for more functional transfers, standing and provides more stability. Pt does not have any left arm awareness, max x2 for EOB, min assist for grooming while seated, max fr bathing and UE dressing, dependent x2 for LE dressing. Pt is becoming more alert, but does needs cues for problem solving, having inattention, poor safety awareness. Pt needs distant supervision, cues small bites/sips, 90 degrees upright with meals. ST work on memory as well. Encouraging hydration. Pt to f/u with neurologist and internet webmaster and will need 30 day heart monitor at [place]. The plan is for pt to return home with but may need alternative plan. Explained insurance update 01/21 and continued stay is not guaranteed. will continue to follow and ReTeam next week. JONELLE PatelW
[2020-01-20 12:00] LABS: Bedside Glucose 184 mg/dL (70-110)
[2020-01-20] MEDS: 0.9% Normal Saline 1,000 ML 150 ML IV ×2 (16:32→23:30)
[2020-01-20] MEDS: Rivaroxaban 20 MG Tablet PO (16:37)
[2020-01-20 17:20] LABS: Bedside Glucose 172 mg/dL (70-110)
[2020-01-20 19:13] VITALS: BP 161/72; PULSE 80; RESP 16; TEMP 36.9; O2SAT 96
[2020-01-20 21:15] LABS: Bedside Glucose 140 mg/dL (70-110)
[2020-01-20] MEDS: QUEtiapine 25 MG Tablet 12.5 MG PO (22:48)
[2020-01-20] MEDS: Atorvastatin Calcium 40 MG Tablet PO (22:50)
[2020-01-21] MEDS: glipiZIDE 5 MG Tablet PO ×2 (06:48→16:32)
[2020-01-21 07:05] LABS: Bedside Glucose 123 mg/dL (70-110)
[2020-01-21 07:24] VITALS: BP 153/78; PULSE 77; RESP 16; TEMP 36.8; O2SAT 100
[2020-01-21] MEDS: Aspirin 81 MG TAB.CHEW PO (08:16)
[2020-01-21 08:17] VITALS: BP 153/78; PULSE 77
[2020-01-21] MEDS: Metoprolol(XL)Succ 25 MG Tablet PO ×2 (08:17→20:31)
[2020-01-21] MEDS: Sertraline 50 MG Tablet PO (08:17)
[2020-01-21] MEDS: Cefadroxil 500 MG CAPSULE 1000 MG PO ×2 (08:17→20:33)
[2020-01-21] MEDS: Senna/Docusate Sodium 1 Tablet 2 TABLET PO ×2 (08:17→20:32)
[2020-01-21] MEDS: Pantoprazole Sodium 40 MG Tablet PO (08:17)
[2020-01-21] MEDS: Lisinopril 20 MG Tablet PO (08:17)
[2020-01-21] MEDS: Menthol/Lanolin/Calamine/Znox 113 GM Tube 1 APPLIC TOPICAL ×2 (08:33→20:33)
--- NOTE | 2020-01-21 08:47 | PCM.PN.BLA ---
Progress Note Day 01/31 of cefadroxil Afebrile VSS-the blood pressure over the past 24 hours has ranged from 129/69-160 1/72 at 7:00 last night. Current blood pressure is 153/78. Maintaining appropriate oxygen saturation on RA Oral intake is poor. She received 2 Liters of NS last night She continues to be incontinent of urine Discussed with nursing - She had a brief period of confusion this AM....could not tell the nurse her name or her 's name.....she was mumbling. She then came back to baseline after she was awake a short time. Reviewed the PT/OT/ST notes Medication list reviewed. Blood sugar record was reviewed. All blood sugars for the past 36 hours have been less than 200. Fasting blood sugar this morning was 123 and the at bedtime blood sugar was 140. Denies pain, nausea, vomiting, constipation. Sleeping better at night. Alert, appears depressed today and is not smiling, not participating in conversation, tells me she ,misses her She was able to tell me she is in the hospital for a CVA, denies shortness of breath, denies cough Mucous membranes dry Lungs-clear to auscultation with diminished breath sounds, more likely than not secondary to poor inspiratory effort Heart-regular rate and rhythm Abdomen-soft, nontender with palpation, bowel sounds present No peripheral edema Persistence severe Left side weakness, Leg > ARM, persistent L side neglect, Still using the lolly lift to stand and has not ambulated. Impressions 1. Post stroke debility 2. Depression-started on sertraline at admission and currently tolerating without any significant side effects 3. Insomnia-improved with small dose of Seroquel at bedtime 4. Diabetes mellitus type 2 5. Urinary incontinence with some urine retention She was started on Premarin vaginal cream yesterday to improve genitourinary health and hopefully help with residual urine post void. She is tolerating the Atorvastatin with any reported SE. Increase the Metoprolol to BID Stop the SSI and continue to monitor the BS's AC and HS. Continue glipizide 5 mg p.o. twice daily STROKE Vital Signs/Narrative: Vital Signs Temp Pulse Resp BP Pulse Ox 01/21/20 08:17 77 153/78 H 01/21/20 07:24 98.2 F 77 16 153/78 H 100 Inpatient E&M: [id number] Subs Hosp L2
[2020-01-21 11:36] LABS: Bedside Glucose 127 mg/dL (70-110)
[2020-01-21 12:04] VITALS: BMI 24.3
[2020-01-21] MEDS: Rivaroxaban 20 MG Tablet PO (16:32)
[2020-01-21 17:01] LABS: Bedside Glucose 128 mg/dL (70-110)
[2020-01-21 19:21] VITALS: BP 129/71; PULSE 69; RESP 18; TEMP 36.9; O2SAT 97
[2020-01-21 20:31] VITALS: PULSE 69
[2020-01-21] MEDS: 0.9% Saline Lock 10 ML Syringe IV (20:31)
[2020-01-21] MEDS: QUEtiapine 25 MG Tablet 12.5 MG PO (20:32)
[2020-01-21] MEDS: Estrogens,Conj. 1 Tube 1 DOSE VAGINAL (20:32)
[2020-01-21] MEDS: Atorvastatin Calcium 40 MG Tablet PO (20:32)
[2020-01-21 20:43] VITALS: BMI 24.3
[2020-01-21 22:00] VITALS: PULSE 74; RESP 17
[2020-01-21 22:16] LABS: Bedside Glucose 161 mg/dL (70-110)
[2020-01-22 06:24] LABS: Hematocrit 37.7 % (37-47); Mean Corp Hgb Conc 31.8 g/dL (32-36); Mean Corpuscular Hgb 30.9 pg (27.0-32.0); Mean Corpuscular Volume 97.2 fL (81-99); Mean Platelet Vol. 10.5 fl (6.2-12.0); Platelet Count 371 K/mm3 (150-450); RBC Distribution Width CV 13.2 % (11.6-14.6); RBC Distribution Width SD 47.2 fl (35.1-43.9); Red Blood Count 3.88 M/mm3 (4.2-5.4); White Blood Count 9.3 K/mm3 (4.4-11.0)
[2020-01-22 06:37] LABS: Anion Gap 7 (5-15); BUN 23 mg/dL (7-18); BUN/Creat Ratio 27.1 RATIO (10-20); Calcium,Total 8.5 mg/dL (8.5-10.1); Chloride 105 mmol/L (98-107); Creatinine, Serum 0.85 mg/dL (0.55-1.02); EST Glomerular Filtration Rate 70 mL/min (>60); Est Glom Filt Rate - Afr Amer 84 mL/min (>60); Estimated Creatinine Clearance 53.04 ml/min; Glucose 148 mg/dL (74-106); Sodium Level 137 mmol/L (136-145)
[2020-01-22] MEDS: glipiZIDE 5 MG Tablet PO ×2 (06:42→16:45)
[2020-01-22 07:00] LABS: Bedside Glucose 148 mg/dL (70-110)
--- NOTE | 2020-01-22 07:47 | PCM.PN.BLA ---
Progress Note Cefadroxil 07/10 doses have been given. Afebrile BP yesterday was higher than it had been running in the morning but the BP at 19:21 was 129/71 and today the BP is 134/68. Metoprolol XL 25 mg Q HS was recently added to the drug regimen. HR is WNL She is maintaining appropriate oxygen saturation on room air and is on O2 at 2 L at night due to an abnormal overnight trending pulse ox. Oral intake was better yesterday and she took 1080 p.o. She continues to be incontinent of urine. PT/OT/ST notes were reviewed Blood sugar record was reviewed. All blood sugars since at bedtime on 01/19/2020 have been under 200. Sliding scale insulin was discontinued yesterday and the fasting blood sugar is 148 today. All lab was personally reviewed. Hemoglobin is 12 and the platelets and WBC count are within normal limits. The potassium is 4 and the BUN is 23 with a creatinine of 0.85 and a BUN/creatinine ratio which is still abnormal at 27.1. Calcium is within normal limits. She is c/o left knee pain yesterday and today. No hx of gout. Denies shortness of breath, cough, chest discomfort, nausea, lightheadedness. She did very well with breakfast today and cleaned her plate however she only drank a small glass of juice and left the coffee and the milk. It has been very difficult to keep her hydrated and she constantly has to be encouraged to drink more. Alert and oriented to person, place and month. She can not tell me the year but she can now tell me why she is here. NAD, appropriate, cooperative PERRL, EOMI MM are dry and there are no mucosal lesions The neck is supple and the trachea is midline, there are no cervical nodes Lungs are clear to auscultation with good air exchange Heart has a RRR with no gallop and no rub. There are no murmurs. Abdomen is soft, NT, ND and there are normal bowel sounds heard in all quadrants. There was no guarding with palpation CN's II - XII are grossly intact. She has no facial asymmetry. Persistent left side weakness. Still using the lolly lift. Requiring max assist or mod assist to stand and pivot. Has not ambulated, She was able to use the nu step for 5 minutes at L1. Still having left side neglect. Slow to respond and easily distracted. Requiring total assist to roll side to side in bed and total assist with dressing No peripheral edema, no calf tenderness Skin is warm and dry, no rashes, no breakdown. Flat affect Impressions 1. Debility due to multiple bilateral lacunar infarcts in different areas of the brain presumed to be due to atrial fibrillation. 2. Diabetes mellitus type 2 controlled at present 3. Hypertension 4. Hyperlipidemia 5. Sleep disordered breathing on O2 at at bedtime and anytime she is sleeping 6. Significant cognitive dysfunction and left side neglect Continue therapy Change the lisinopril to 10 mg p.o. twice daily and continue to monitor the BP's. The goal is consistently less than 130/80 Continue to encourage increased fluid intake. Inpatient E&M: [id number] Subs Hosp L2
[2020-01-22 08:00] VITALS: BP 134/68; PULSE 65; RESP 16; TEMP 37.1; O2SAT 98
[2020-01-22] MEDS: Menthol/Lanolin/Calamine/Znox 113 GM Tube 1 APPLIC TOPICAL ×2 (08:36→21:15)
[2020-01-22 08:38] VITALS: PULSE 65
[2020-01-22] MEDS: Metoprolol(XL)Succ 25 MG Tablet PO ×2 (08:38→21:17)
[2020-01-22] MEDS: Pantoprazole Sodium 40 MG Tablet PO (08:38)
[2020-01-22] MEDS: Cefadroxil 500 MG CAPSULE 1000 MG PO ×2 (08:38→21:15)
[2020-01-22] MEDS: Aspirin 81 MG TAB.CHEW PO (08:38)
[2020-01-22] MEDS: Sertraline 50 MG Tablet PO (08:40)
[2020-01-22] MEDS: Lisinopril 10 MG Tablet PO ×2 (12:07→21:18)
[2020-01-22] MEDS: Capsaicin 0.025% 1 APPLIC Tube TOPICAL ×2 (12:07→22:05)
[2020-01-22 12:10] LABS: Bedside Glucose 202 mg/dL (70-110)
[2020-01-22 15:20] VITALS: BMI 24.3
[2020-01-22] MEDS: Rivaroxaban 20 MG Tablet PO (16:45)
[2020-01-22 16:50] LABS: Bedside Glucose 154 mg/dL (70-110)
[2020-01-22 18:54] VITALS: BP 147/78; PULSE 66; RESP 16; TEMP 36.7; O2SAT 97
[2020-01-22 20:20] VITALS: BMI 24.3
[2020-01-22] MEDS: Atorvastatin Calcium 40 MG Tablet PO (21:15)
[2020-01-22] MEDS: QUEtiapine 25 MG Tablet 12.5 MG PO (21:16)
[2020-01-22] MEDS: Estrogens,Conj. 1 Tube 1 DOSE VAGINAL (21:16)
[2020-01-22 21:17] VITALS: PULSE 72
[2020-01-22 22:15] LABS: Bedside Glucose 201 mg/dL (70-110)
[2020-01-22] MEDS: 0.9% Saline Lock 10 ML Syringe IV (23:40)
[2020-01-23] MEDS: Capsaicin 0.025% 1 APPLIC Tube TOPICAL ×3 (05:06→20:31)
[2020-01-23] MEDS: glipiZIDE 5 MG Tablet PO ×2 (06:42→17:09)
[2020-01-23 06:55] LABS: Bedside Glucose 156 mg/dL (70-110)
[2020-01-23 07:00] VITALS: BP 111/54; PULSE 65; RESP 16; TEMP 37; O2SAT 95
[2020-01-23] MEDS: Aspirin 81 MG TAB.CHEW PO (07:38)
[2020-01-23 07:39] VITALS: PULSE 65
[2020-01-23] MEDS: Pantoprazole Sodium 40 MG Tablet PO (07:39)
[2020-01-23] MEDS: Metoprolol(XL)Succ 25 MG Tablet PO ×2 (07:39→20:37)
[2020-01-23] MEDS: Lisinopril 10 MG Tablet PO ×2 (07:39→20:36)
[2020-01-23] MEDS: Sertraline 50 MG Tablet PO (07:40)
[2020-01-23] MEDS: Menthol/Lanolin/Calamine/Znox 113 GM Tube 1 APPLIC TOPICAL ×2 (07:44→20:35)
[2020-01-23] MEDS: Cefadroxil 500 MG CAPSULE 1000 MG PO (10:11)
[2020-01-23 11:55] LABS: Bedside Glucose 240 mg/dL (70-110)
[2020-01-23 12:09] VITALS: BMI 24.3
[2020-01-23 16:41] LABS: Bedside Glucose 240 mg/dL (70-110)
[2020-01-23 17:01] LABS: Bedside Glucose 237 mg/dL (70-110)
[2020-01-23] MEDS: Rivaroxaban 20 MG Tablet PO (17:09)
[2020-01-23 19:28] VITALS: BP 123/64; PULSE 72; RESP 16; TEMP 36.7; O2SAT 95
[2020-01-23 20:00] VITALS: PULSE 72; RESP 16; O2SAT 95; BMI 24.3
[2020-01-23] MEDS: Estrogens,Conj. 1 Tube 1 DOSE VAGINAL (20:30)
[2020-01-23] MEDS: QUEtiapine 25 MG Tablet 12.5 MG PO (20:36)
[2020-01-23 20:37] VITALS: BP 123/64; PULSE 72
[2020-01-23] MEDS: Atorvastatin Calcium 40 MG Tablet PO (20:37)
[2020-01-23 20:56] LABS: Bedside Glucose 227 mg/dL (70-110)
--- NOTE | 2020-01-24 01:29 | NURSING ---
Reviewed and agree with EARTH SCIENCES PROFESSOR charting and documentation.
[2020-01-24] MEDS: Acetaminophen 325 MG Tablet 650 MG PO (04:06)
[2020-01-24] MEDS: Capsaicin 0.025% 1 APPLIC Tube TOPICAL ×3 (05:07→21:24)
[2020-01-24 06:35] LABS: Bedside Glucose 156 mg/dL (70-110)
[2020-01-24] MEDS: glipiZIDE 5 MG Tablet PO ×2 (06:38→16:07)
[2020-01-24 07:56] VITALS: BP 133/69; PULSE 64
[2020-01-24] MEDS: Pantoprazole Sodium 40 MG Tablet PO (07:56)
[2020-01-24] MEDS: Aspirin 81 MG TAB.CHEW PO (07:56)
[2020-01-24] MEDS: Lisinopril 10 MG Tablet PO ×2 (07:56→21:24)
[2020-01-24] MEDS: Metoprolol(XL)Succ 25 MG Tablet PO ×2 (07:56→21:24)
[2020-01-24] MEDS: Sertraline 50 MG Tablet PO (07:56)
[2020-01-24] MEDS: Menthol/Lanolin/Calamine/Znox 113 GM Tube 1 APPLIC TOPICAL ×2 (07:58→21:25)
[2020-01-24 08:06] VITALS: BP 133/69; PULSE 64; RESP 16; TEMP 36.8; O2SAT 98
[2020-01-24 08:53] VITALS: BMI 24.3
[2020-01-24 11:20] LABS: Bedside Glucose 251 mg/dL (70-110)
[2020-01-24] MEDS: Rivaroxaban 20 MG Tablet PO (16:06)
[2020-01-24 16:35] LABS: Bedside Glucose 133 mg/dL (70-110)
[2020-01-24 21:00] VITALS: BP 151/74; PULSE 62; RESP 16; TEMP 36.8; O2SAT 96; BMI 24.3
[2020-01-24 21:16] LABS: Bedside Glucose 110 mg/dL (70-110)
[2020-01-24] MEDS: QUEtiapine 25 MG Tablet 12.5 MG PO (21:23)
[2020-01-24] MEDS: Senna/Docusate Sodium 1 Tablet 2 TABLET PO (21:23)
[2020-01-24 21:24] VITALS: BP 151/74; PULSE 62
[2020-01-24] MEDS: Atorvastatin Calcium 40 MG Tablet PO (21:24)
[2020-01-24] MEDS: Estrogens,Conj. 1 Tube 1 DOSE VAGINAL (21:25)
[2020-01-25] MEDS: Capsaicin 0.025% 1 APPLIC Tube TOPICAL ×3 (05:11→20:43)
[2020-01-25] MEDS: glipiZIDE 5 MG Tablet PO ×2 (06:41→16:42)
[2020-01-25] MEDS: Menthol/Lanolin/Calamine/Znox 113 GM Tube 1 APPLIC TOPICAL ×2 (07:33→20:42)
[2020-01-25 07:34] VITALS: BP 120/60; PULSE 63
[2020-01-25] MEDS: Metoprolol(XL)Succ 25 MG Tablet PO ×2 (07:34→20:45)
[2020-01-25] MEDS: Aspirin 81 MG TAB.CHEW PO (07:34)
[2020-01-25] MEDS: Sertraline 50 MG Tablet PO (07:34)
[2020-01-25] MEDS: Lisinopril 10 MG Tablet PO ×2 (07:34→20:44)
[2020-01-25] MEDS: Pantoprazole Sodium 40 MG Tablet PO (07:34)
[2020-01-25 07:39] VITALS: BP 120/60; PULSE 63; RESP 17; TEMP 36.8; O2SAT 97
[2020-01-25 07:41] LABS: Bedside Glucose 147 mg/dL (70-110)
[2020-01-25 08:28] VITALS: BMI 24.3
[2020-01-25 12:00] LABS: Bedside Glucose 189 mg/dL (70-110)
[2020-01-25] MEDS: Rivaroxaban 20 MG Tablet PO (16:41)
[2020-01-25] MEDS: Acetaminophen 325 MG Tablet 650 MG PO (16:44)
[2020-01-25 16:56] LABS: Bedside Glucose 135 mg/dL (70-110)
[2020-01-25 20:10] VITALS: BP 122/75; PULSE 69; RESP 18; TEMP 36.7; O2SAT 98; BMI 24.3
[2020-01-25] MEDS: Estrogens,Conj. 1 Tube 1 DOSE VAGINAL (20:42)
[2020-01-25] MEDS: Atorvastatin Calcium 40 MG Tablet PO (20:44)
[2020-01-25] MEDS: Senna/Docusate Sodium 1 Tablet 2 TABLET PO (20:44)
[2020-01-25 20:45] VITALS: BP 122/75; PULSE 69
[2020-01-25] MEDS: QUEtiapine 25 MG Tablet 12.5 MG PO (20:45)
[2020-01-25 21:16] LABS: Bedside Glucose 190 mg/dL (70-110)
[2020-01-26] MEDS: Capsaicin 0.025% 1 APPLIC Tube TOPICAL ×3 (05:03→20:51)
[2020-01-26] MEDS: Acetaminophen 325 MG Tablet 650 MG PO (05:06)
[2020-01-26] MEDS: glipiZIDE 5 MG Tablet PO ×2 (07:06→16:37)
[2020-01-26 07:11] LABS: Bedside Glucose 162 mg/dL (70-110)
[2020-01-26] MEDS: Menthol/Lanolin/Calamine/Znox 113 GM Tube 1 APPLIC TOPICAL ×2 (07:40→20:38)
[2020-01-26] MEDS: Pantoprazole Sodium 40 MG Tablet PO (07:41)
[2020-01-26] MEDS: Aspirin 81 MG TAB.CHEW PO (07:41)
[2020-01-26] MEDS: Lisinopril 10 MG Tablet PO ×2 (07:42→20:40)
[2020-01-26] MEDS: Sertraline 50 MG Tablet PO ×2 (07:42→10:39)
[2020-01-26 07:44] VITALS: BP 104/58; PULSE 69
[2020-01-26] MEDS: Metoprolol(XL)Succ 25 MG Tablet PO ×2 (07:44→20:40)
[2020-01-26 07:47] VITALS: BP 104/58; PULSE 69; RESP 16; TEMP 36.7; O2SAT 95
[2020-01-26 09:56] VITALS: BMI 24.3
--- NOTE | 2020-01-26 10:34 | CASEMGMT ---
Social Work IDT met with patient and daughter via conference call for Team Meeting. Discussed patient's progress in therapy. Pt is using SaraLift for transfers, mod x2, standing 6-8 mins but leans heavily to the right, and pt does not initiate movements. Pt is slow to process and slower improvement, but physician explained pt had many strokes so it will take longer to see bigger improvements and clearer orientation. Pt having some improvement with strength in the left arm, must have cues d/t neglect and working on trunk control. Pt is set up for oral care, mod assist for grooming, max for UE ADLS, total x2 for LE ADLS and toileting. ST working on orientation, awareness, memory strategies, left neglect strategies. Pt continues to be encouraged to stay hydrated, pain is controlled. Pt appears more lethargic on this date and down. Physician increased pt's antidepressant. Pt express she just wants to go home. Physician and SW explained pt is not able to return home at this time as she requires too much assistance and cannot take care of her. IDT recommending SNF after insurance issues DC for [place]. The goal is for pt to remain in [place] to return home, but pt needs to be more independent for to safely care for her at home. Explained insurance NRD 01/28 and continued stay is not guaranteed. Will ReTeam next week. Spoke with pt's with above information and inquired about alternative DC plan. Discussed SNF and financial liability because it is not guaranteed insurance will approve SNF. Inquired about financial information for Medicaid and pt is over income and resources to qualify. Explained private pay - would prefer not to pay privately and would like to pt home. Explained will continue to follow but wanted him to be aware of the options. appreciative. Gabriela Gomes, [facility] TALENT ACQUISITION DIRECTOR
[2020-01-26 12:05] LABS: Bedside Glucose 204 mg/dL (70-110)
--- NOTE | 2020-01-26 13:00 | PN_ITS ---
Patient Problems: Active and Suspected Problems Ischemic cerebrovascular accident (CVA) (Acute) MRI on 01/02/20 shows multiple areas of restricted diffusion including the anterior corpus callosum, bilateral periventricular white matter, the left thalamus, left brachium pontis and the left cerebellum. These have been attributed to multiple ischemic infarcts more likely than not due to AF. PAF (paroxysmal atrial fibrillation) (Acute) recently started on Xarelto Diabetes mellitus type 2 in nonobese (Acute) Anticoagulated by anticoagulation treatment (Acute) Xarelto - not on 15 mg BID initially...started on 20 mg daily at [facility] Subjective: Zena was seen on team rounds today. Her daughter participated by phone. Afebrile VSS- BP in the evening is over goal but the AM pressure is good Maintaining appropriate oxygen saturation on RA Oral intake is fair. Still requiring a lot of encouragement to increase her fluid intake. Discussed with nursing - no problems that need addressed Reviewed the PT/OT/ST notes Medication list reviewed. Blood sugar record was reviewed and the blood sugars have come under good control with nearly all blood sugars less than 200 She appears to be down today and she admits to being sad. She misses her . Denies LLAMAS, pain, nausea, dysuria. She is still requiring the lolly lift to stand. Has not attempted walking. She has stood at the wall rail with one person assist for a few minutes. Frowning today and staring out the window and not making eye contact. Denies SOB, cough, chest pain, constipation. jayla is sleeping well at night now on only 12.5 mg of Seroquel. Alert, oriented to person and place. Mucous membranes are dry and we continually urged her to increase her water intake. She seems to do better when you give her a small glass of water rather than a big jug. Lungs-clear to auscultation Heart-regular rate and rhythm Abdomen-soft, nondistended, nontender, no guarding with palpation, bowel sounds heard in all quadrants No peripheral edema She was able to decaler my hand today with her left hand, still with left side neglect. Still not ambulating and needs the lolly lift. Impressions 1. Post stroke debility - multiple BL lacunar infarcts due to AF. 2. Depression-started on sertraline at admission and currently tolerating wit hout any significant side effects. Appears despondent today. Will increase the Sertraline to 100 mg daily 3. Insomnia-improved with small dose of Seroquel at bedtime. Will continue 4. Diabetes mellitus type 2 - well controlled at this time without hypoglycemia. Continue to monitor the BS's 5. Urinary incontinence with some urine retention - started on Premarin vaginal cream last week. - Physical Exam Vitals/I&O's: Vital Signs Temp Pulse Resp BP Pulse Ox 98.1 F 69 16 104/58 L 95 01/26/20 07:47 01/26/20 07:47 01/26/20 07:47 01/26/20 07:47 01/26/20 07:47 Oxygen Flow Rate (L/min) 2 Oxygen Delivery Method Room Air Weight: 151 lb 14.376 oz Body Mass Index (BMI) 24.3 Intake and Output for Last 24 Hours 01/24/20 01/25/20 01/26/20 23:59 23:59 23:59 Intake Total 720 / 720 920 / 920 120 / 120 Balance 720 / 720 920 / 920 120 / 120 Laboratory Results 01/25/20 16:44: POC Glucose 135 H 01/25/20 21:00: POC Glucose 190 H 01/26/20 06:47: POC Glucose 162 H 01/26/20 12:02: POC Glucose 204 H Current Medications Acetaminophen (Tylenol) 650 mg PO Q6H PRN PRN PRN Reason: Pain Score 1-10/10 Last Admin: 01/26/20 05:06 Dose: 650 mg Documented by: Aspirin (Aspirin, Baby) 81 mg PO DAILY@0800 [facility] Last Admin: 01/26/20 07:41 Dose: 81 mg Documented by: Atorvastatin Calcium (Lipitor) 40 mg PO QHS [facility] Last Admin: 01/25/20 20:44 Dose: 40 mg Documented by: Bisacodyl (Dulcolax) 10 mg RECTAL .PRN X 1 PRN PRN Reason: Constipation Calamine/Phenol (Calmoseptine Ointment) 1 applic TOPICAL BID [facility]; Protocol Last Admin: 01/26/20 07:40 Dose: 1 applicatio Documented by: Capsaicin (Zostrix) 1 applic TOPICAL TID [facility]; Protocol Last Admin: 01/26/20 05:03 Dose: 1 applicatio Documented by: Estrogens Conjugated (Premarin) 1 dose VAGINAL QHS [facility] Stop: 01/26/20 22:01 Last Admin: 01/25/20 20:42 Dose: 1 dose Documented by: Estrogens Conjugated (Premarin) 1 dose VAGINAL MoTh@2200 [facility] Glipizide (Glucotrol) 5 mg PO BIDAC [facility] Last Admin: 01/26/20 07:06 Dose: 5 mg Documented by: Lisinopril (Zestril) 10 mg PO BID [facility] Last Admin: 01/26/20 07:42 Dose: 10 mg Documented by: Magnesium Hydroxide (Milk Of Magnesia) 30 ml PO .PRN X 1 PRN PRN Reason: Constipation Metoprolol Succinate (Toprol Xl (Beta Issac)) 25 mg PO BID [facility] Last Admin: 01/26/20 07:44 Dose: 25 mg Documented by: Pantoprazole Sodium (Protonix) 40 mg PO DAILY [facility] Last Admin: 01/26/20 07:41 Dose: 40 mg Documented by: Quetiapine Fumarate (Seroquel) 12.5 mg PO QHS [facility] Last Admin: 01/25/20 20:45 Dose: 12.5 mg Documented by: Rivaroxaban (Xarelto) 20 mg PO DAILY@1700 [facility] Last Admin: 01/25/20 16:41 Dose: 20 mg Documented by: Senna/Docusate Sodium (Senokot-S, Cammie-Colace) 2 tablet PO BID [facility] Last Admin: 01/26/20 07:45 Dose: Not Given Documented by: Sertraline HCl (Zoloft) 100 mg PO DAILY [facility] Sodium Chloride () 10 - 40 ml IV UD PRN PRN Reason: SALINE FLUSH Last Admin: 01/22/20 23:40 Dose: 10 ml Documented by: Medical Necessity - Tobacco Use Smoking Status: Never smoker Tobacco Use: Non-smoker Assessment/Plan All Active Problems Ischemic cerebrovascular accident (CVA) (Acute) PAF (paroxysmal atrial fibrillation) (Acute) Diabetes mellitus type 2 in nonobese (Acute) Anticoagulated by anticoagulation treatment (Acute) Inpatient E&M: [id number] [facility] Hosp L2
[2020-01-26] MEDS: Rivaroxaban 20 MG Tablet PO (16:37)
[2020-01-26 17:00] LABS: Bedside Glucose 191 mg/dL (70-110)
[2020-01-26] MEDS: Senna/Docusate Sodium 1 Tablet 2 TABLET PO (20:39)
[2020-01-26] MEDS: Estrogens,Conj. 1 Tube 1 DOSE VAGINAL (20:39)
[2020-01-26] MEDS: Atorvastatin Calcium 40 MG Tablet PO (20:39)
[2020-01-26 20:40] VITALS: BP 142/76; PULSE 72
[2020-01-26] MEDS: QUEtiapine 25 MG Tablet 12.5 MG PO (20:40)
[2020-01-26 20:52] VITALS: BP 142/76; PULSE 72; RESP 16; TEMP 36.7; O2SAT 94
[2020-01-26 20:56] LABS: Bedside Glucose 171 mg/dL (70-110)
[2020-01-27 00:05] VITALS: BMI 24.3
[2020-01-27] MEDS: Capsaicin 0.025% 1 APPLIC Tube TOPICAL ×3 (05:56→20:03)
[2020-01-27] MEDS: glipiZIDE 5 MG Tablet PO ×2 (06:36→16:20)
[2020-01-27 06:45] LABS: Bedside Glucose 147 mg/dL (70-110)
[2020-01-27 07:23] VITALS: BP 109/62; PULSE 66; RESP 16; TEMP 36.8; O2SAT 94
[2020-01-27 07:28] VITALS: BP 109/62; PULSE 66
[2020-01-27] MEDS: Metoprolol(XL)Succ 25 MG Tablet PO ×2 (07:28→20:05)
[2020-01-27] MEDS: Senna/Docusate Sodium 1 Tablet 2 TABLET PO (07:28)
[2020-01-27] MEDS: Sertraline 100 MG Tablet PO (07:28)
[2020-01-27] MEDS: Lisinopril 10 MG Tablet PO ×2 (07:28→20:04)
[2020-01-27] MEDS: Menthol/Lanolin/Calamine/Znox 113 GM Tube 1 APPLIC TOPICAL ×2 (07:28→20:07)
[2020-01-27] MEDS: Pantoprazole Sodium 40 MG Tablet PO (07:29)
[2020-01-27] MEDS: Aspirin 81 MG TAB.CHEW PO (07:29)
[2020-01-27 09:20] VITALS: BMI 24.3
[2020-01-27] MEDS: amLODIPine 2.5 MG Tablet PO (11:33)
[2020-01-27 11:40] LABS: Bedside Glucose 360 mg/dL (70-110)
--- NOTE | 2020-01-27 15:54 | CHAPLAIN ---
Type of Pastoral Visit ___ Initial Visit _x__ Follow-up Visit ___ On-call Visit ___ General Patient Visit ___ Spiritual Assessment ___ Family Conference ___ Bereavement ___ Rapid Response ___ Code Blue ___ Other (describe below) Pastoral Care Referral From _x__ Patient ___ Family ___ Nurse ___ Physician ___ Improvement Lead ___ Turf And Grounds Supervisor ___ Other (describe below) Sacrament/Intervention _x__ Active listening ___ Anointing ___ Religious ___ Bereavement ___ Communion ___ Hannah exploration ___ ___ Life review _x__ Prayer ___ Reconciliation ___ Sacrament of Sick _x__ Supportive presence ___ Wedding ___ Other (describe below) Pastoral Comments patient talks of random things at first; later pt appears to have more focused thoughts; pt leaning forward in chair but states that she is fine and is comfortable; pt is slow of speech and response but does continue into conversation if given time; pt welcomed prayer and talked out loud when prayer focused on getting home when pt said she that's what I want
[2020-01-27] MEDS: Rivaroxaban 20 MG Tablet PO (16:20)
[2020-01-27 16:55] LABS: Bedside Glucose 215 mg/dL (70-110)
[2020-01-27 18:46] VITALS: BP 127/64; PULSE 74; RESP 16; TEMP 36.6; O2SAT 94
[2020-01-27 19:41] VITALS: BMI 24.3
[2020-01-27 20:05] VITALS: PULSE 72
[2020-01-27] MEDS: QUEtiapine 25 MG Tablet 12.5 MG PO (20:05)
[2020-01-27] MEDS: Atorvastatin Calcium 40 MG Tablet PO (20:06)
[2020-01-27 21:30] LABS: Bedside Glucose 212 mg/dL (70-110)
[2020-01-27 21:56] VITALS: O2SAT 2
[2020-01-28] MEDS: Capsaicin 0.025% 1 APPLIC Tube TOPICAL ×3 (05:12→20:30)
[2020-01-28] MEDS: glipiZIDE 5 MG Tablet PO ×2 (06:32→16:39)
[2020-01-28 06:41] LABS: Hematocrit 36.7 % (37-47); Hemoglobin 11.6 g/dL (12.0-15.0)
[2020-01-28 07:00] LABS: Bedside Glucose 165 mg/dL (70-110)
[2020-01-28 07:06] LABS: Anion Gap 8 (5-15); BUN 25 mg/dL (7-18); BUN/Creat Ratio 26.5 RATIO (10-20); Calcium,Total 8.6 mg/dL (8.5-10.1); Chloride 107 mmol/L (98-107); Creatinine, Serum 0.94 mg/dL (0.55-1.02); EST Glomerular Filtration Rate 62 mL/min (>60); Est Glom Filt Rate - Afr Amer 75 mL/min (>60); Estimated Creatinine Clearance 47.96 ml/min; Glucose 168 mg/dL (74-106); Magnesium 2.2 mg/dL (1.6-2.6); Potassium 3.8 mmol/L (3.5-5.1); Sodium Level 139 mmol/L (136-145)
[2020-01-28 07:40] VITALS: PULSE 63
[2020-01-28] MEDS: Pantoprazole Sodium 40 MG Tablet PO (07:40)
[2020-01-28] MEDS: Metoprolol(XL)Succ 25 MG Tablet PO ×2 (07:40→20:30)
[2020-01-28] MEDS: amLODIPine 2.5 MG Tablet PO (07:40)
[2020-01-28] MEDS: Aspirin 81 MG TAB.CHEW PO (07:40)
[2020-01-28] MEDS: Lisinopril 10 MG Tablet PO ×2 (07:42→20:31)
[2020-01-28] MEDS: Sertraline 100 MG Tablet PO (07:42)
[2020-01-28] MEDS: Menthol/Lanolin/Calamine/Znox 113 GM Tube 1 APPLIC TOPICAL ×2 (07:46→20:32)
[2020-01-28 07:54] VITALS: BP 107/62; PULSE 63; RESP 16; TEMP 36.4; O2SAT 100
--- NOTE | 2020-01-28 09:42 | PN_ITS ---
Progress Note She finished 7 days of antibiotics for urinary tract infection Afebrile since admission Blood pressure is well controlled. Heart rate is within normal limits She is maintaining appropriate oxygen saturation on room air while awake and on a 2 L nasal cannula while sleeping due to sleep disordered breathing..... At this point without a formal sleep study I do not know if this is peripheral or central in origin. Oral intake is erratic. She continually is urged to increase her fluid intake. Still incontinent of urine Blood sugar record was reviewed. Blood sugar spiked to 360 yesterday prior to lunch. The fasting was 147. The 4 PM was 215 and the at bedtime was 212. No hypoglycemia. She denies shortness of breath, cough, chest pain, nausea/vomiting, constipation. She is sleeping well at night now. She is very easily distracted and when I am talking to her she is trying to watch television and not making eye contact. She is complaining of left hip pain today. I reviewed the PT and OT notes from 01/27/2020. She is able to stand with the assistance of the [place] lift 6 to 8 minutes. Standing 2 to 3 minutes at the wall well with maximum assistance to maintain upright posture. She now leans forward into the left. Not ambulating. Nursing reports no problems. Alert but easily distractible. Watching TV while I am talking to her and only occasionally making eye contact. Mucous membranes are still dry Lungs-clear to auscultation Heart-regular rate and rhythm, no gallop Abdomen-soft, nontender, nondistended, normal bowel sounds, no guarding with palpation No peripheral edema No radicular pain in the left lower extremity with extension of the leg at the knee Unable to maintain upright posture in the wheelchair and she is leaning to the left. Impressions 1. Debility due to multiple bilateral lacunar infarcts in different areas of the brain presumed to be due to atrial fibrillation. 2. Diabetes mellitus type 2- afternoon sugars are over 200 and she is eating well now. Will increase the Glipizide to 10 mg in the AM and 5 mg PM and continue to monitor the blood sugars AC and HS 3. Hypertension-controlled 4. Hyperlipidemia 5. Sleep disordered breathing on O2 at at bedtime and anytime she is sleeping- needs a formal sleep study at discharge 6. Significant cognitive dysfunction and left side neglect 7. Urinary incontinence with retention less than 200 cc. Has been on Premarin vaginal cream for 1 week and is now on twice weekly regimen. Will check 3 more post void residuals 8. Depression-now on sertraline 100 mg p.o. daily STROKE Vital Signs/Narrative: Vital Signs Temp Pulse Resp BP Pulse Ox 01/28/20 07:54 97.5 F L 63 16 107/62 100 01/28/20 07:40 63 Inpatient E&M: [id number] Subs Hosp L2
[2020-01-28 10:08] VITALS: BMI 24.3
[2020-01-28] MEDS: Acetaminophen 500 MG Tablet 1000 MG PO ×3 (12:05→20:30)
[2020-01-28 12:20] LABS: Bedside Glucose 211 mg/dL (70-110)
[2020-01-28] MEDS: Rivaroxaban 20 MG Tablet PO (16:39)
[2020-01-28 16:45] LABS: Bedside Glucose 208 mg/dL (70-110)
[2020-01-28 19:19] VITALS: BP 127/64; PULSE 67; RESP 18; TEMP 36.8; O2SAT 95
[2020-01-28 20:30] VITALS: BP 127/67; PULSE 67
[2020-01-28] MEDS: QUEtiapine 25 MG Tablet 12.5 MG PO (20:31)
[2020-01-28] MEDS: Atorvastatin Calcium 40 MG Tablet PO (20:31)
[2020-01-28] MEDS: Senna/Docusate Sodium 1 Tablet 2 TABLET PO (20:31)
[2020-01-28 20:52] VITALS: BMI 24.3
[2020-01-28 21:30] VITALS: PULSE 67; RESP 18; O2SAT 95
[2020-01-28 21:55] LABS: Bedside Glucose 153 mg/dL (70-110)
--- NOTE | 2020-01-29 04:13 | NURSING ---
Reviewed and agree with [employer] documentation and charting.
[2020-01-29] MEDS: Capsaicin 0.025% 1 APPLIC Tube TOPICAL ×3 (05:06→20:33)
[2020-01-29] MEDS: Acetaminophen 500 MG Tablet 1000 MG PO ×3 (05:07→21:07)
[2020-01-29 06:41] LABS: Bedside Glucose 144 mg/dL (70-110)
[2020-01-29 07:00] VITALS: BP 130/75; PULSE 59; RESP 16; TEMP 36.7; O2SAT 97
--- NOTE | 2020-01-29 07:50 | PCM.PN.BLA ---
Progress Note Afebrile Vital signs stable-blood pressure is well controlled Maintaining appropriate oxygen saturation on room air incontinent of urine still....post void residual last night was 97. Blood sugar record was reviewed. Blood sugars are adequately controlled. Occasional blood sugar that is slightly over 200. Glipizide was increased to 10 mg in the morning and 5 mg in the afternoon yesterday. We will continue to monitor 4 times daily blood sugars. No hypoglycemia. OT reports that the patient states she was up all night but, I did not get a note about this from the night nurse. Will discuss with the charge nurse. She sat on the edge of the mat yesterday for up to 18 minutes and required cueing to maintain upright posture. Stood at the wall rail for 3 minutes. she was able to face time with her dtr and the assistance of the ST. She was not distracted during the phone call but, she was distracted with therapy. Motivation is a problem. She will do therapy and follow instructions but, can not initiate activity without cueing. Med list reviewed. Blood sugars are elevated prior to lunch and with supper......she is getting her medication in the AM and breakfast at the same time. Nursing reports that she did not sleep well last night. She is awake and looks drowsy today. Lungs - CTA Heart - RRR, no MM and no gallop abd - soft, ND, no guarding with palpation no edema, no calf tenderness no rashes and no skin breakdown. Impressions 1. post stroke debility 2. multiple BL lacunar infarcts in many different areas due to AF - on anticoagulation 3. HTN - controlled 4. DM II - adjusting medication to keep BS's > 100 and less than 220 for now. She has no Hypoglycemia 5. possible multiinfarct dementia? 6. Depression - Sertraline dose has been increased to 100 mg daily 7. insomnia and confusion - increase the Seroquel to 25 mg Q HS 8. encephalopathy due to CVA's At this point her would be unable to care for at home. She is progressing with therapy but progress is slow......likely related to the large number of lacunar infarcts. Will continue therapy. continue to adjust the meds to get god control of DM II. STROKE Vital Signs/Narrative: Vital Signs Temp Pulse Resp BP Pulse Ox 01/29/20 07:00 98.1 F 59 L 16 130/75 H 97 Inpatient E&M: [id number] Subs Hosp L2
[2020-01-29] MEDS: glipiZIDE 10 MG Tablet PO (08:44)
[2020-01-29] MEDS: Pantoprazole Sodium 40 MG Tablet PO (08:44)
[2020-01-29 08:45] VITALS: PULSE 77
[2020-01-29] MEDS: Lisinopril 10 MG Tablet PO ×2 (08:45→20:33)
[2020-01-29] MEDS: Sertraline 100 MG Tablet PO (08:45)
[2020-01-29] MEDS: Metoprolol(XL)Succ 25 MG Tablet PO ×2 (08:45→20:33)
[2020-01-29] MEDS: Menthol/Lanolin/Calamine/Znox 113 GM Tube 1 APPLIC TOPICAL ×2 (08:46→20:31)
[2020-01-29] MEDS: Aspirin 81 MG TAB.CHEW PO (08:46)
[2020-01-29] MEDS: amLODIPine 2.5 MG Tablet PO (08:46)
[2020-01-29 11:16] LABS: Bedside Glucose 322 mg/dL (70-110)
[2020-01-29 14:28] VITALS: BMI 24.3
[2020-01-29] MEDS: glipiZIDE 5 MG Tablet PO (16:55)
[2020-01-29] MEDS: Rivaroxaban 20 MG Tablet PO (16:55)
[2020-01-29 17:01] LABS: Bedside Glucose 208 mg/dL (70-110)
[2020-01-29 19:27] VITALS: BP 147/75; PULSE 73; RESP 16; TEMP 36.9; O2SAT 96
[2020-01-29] MEDS: Estrogens,Conj. 1 Tube 1 DOSE VAGINAL (20:29)
[2020-01-29] MEDS: Atorvastatin Calcium 40 MG Tablet PO (20:31)
[2020-01-29] MEDS: QUEtiapine 25 MG Tablet PO (20:32)
[2020-01-29 20:33] VITALS: PULSE 71
[2020-01-29 20:50] VITALS: BMI 24.3
[2020-01-29 21:15] LABS: Bedside Glucose 146 mg/dL (70-110)
[2020-01-29 22:00] VITALS: PULSE 76; RESP 16
[2020-01-30] MEDS: Acetaminophen 500 MG Tablet 1000 MG PO ×3 (05:13→20:39)
[2020-01-30] MEDS: Capsaicin 0.025% 1 APPLIC Tube TOPICAL ×3 (05:13→20:39)
[2020-01-30 06:51] LABS: Bedside Glucose 122 mg/dL (70-110)
[2020-01-30 07:47] VITALS: BP 120/67; PULSE 58; RESP 16; TEMP 36.6; O2SAT 99
[2020-01-30] MEDS: Aspirin 81 MG TAB.CHEW PO (07:56)
[2020-01-30] MEDS: Pantoprazole Sodium 40 MG Tablet PO (07:56)
[2020-01-30] MEDS: Lisinopril 10 MG Tablet PO ×2 (07:56→20:39)
[2020-01-30] MEDS: glipiZIDE 10 MG Tablet PO (07:56)
[2020-01-30] MEDS: amLODIPine 2.5 MG Tablet PO (07:56)
[2020-01-30] MEDS: Sertraline 100 MG Tablet PO (07:57)
[2020-01-30 08:02] VITALS: BP 120/67; PULSE 72
[2020-01-30] MEDS: Metoprolol(XL)Succ 25 MG Tablet PO ×2 (08:02→20:40)
[2020-01-30] MEDS: Menthol/Lanolin/Calamine/Znox 113 GM Tube 1 APPLIC TOPICAL ×2 (08:06→20:41)
[2020-01-30 11:10] LABS: Bedside Glucose 176 mg/dL (70-110)
[2020-01-30 14:02] VITALS: BMI 24.3
[2020-01-30 16:50] LABS: Bedside Glucose 171 mg/dL (70-110)
[2020-01-30] MEDS: glipiZIDE 5 MG Tablet PO (17:46)
[2020-01-30] MEDS: Rivaroxaban 20 MG Tablet PO (17:46)
[2020-01-30 18:44] VITALS: BP 125/69; PULSE 66; RESP 16; TEMP 36.7; O2SAT 97
[2020-01-30 20:40] VITALS: BP 125/69; PULSE 66
[2020-01-30] MEDS: Senna/Docusate Sodium 1 Tablet 2 TABLET PO (20:40)
[2020-01-30] MEDS: QUEtiapine 25 MG Tablet PO (20:40)
[2020-01-30] MEDS: Atorvastatin Calcium 40 MG Tablet PO (20:40)
[2020-01-30 21:21] LABS: Bedside Glucose 183 mg/dL (70-110)
[2020-01-31] MEDS: Capsaicin 0.025% 1 APPLIC Tube TOPICAL ×3 (06:04→20:19)
[2020-01-31] MEDS: Acetaminophen 500 MG Tablet 1000 MG PO ×3 (06:05→20:20)
[2020-01-31 06:26] LABS: Bedside Glucose 103 mg/dL (70-110)
[2020-01-31] MEDS: glipiZIDE 10 MG Tablet PO (06:41)
[2020-01-31 07:00] VITALS: BP 127/70; PULSE 61; RESP 18; TEMP 36.9; O2SAT 95
[2020-01-31 07:49] VITALS: PULSE 70
[2020-01-31] MEDS: Metoprolol(XL)Succ 25 MG Tablet PO ×2 (07:49→20:21)
[2020-01-31] MEDS: Aspirin 81 MG TAB.CHEW PO (07:49)
[2020-01-31] MEDS: Lisinopril 10 MG Tablet PO ×2 (07:49→20:20)
[2020-01-31] MEDS: Sertraline 100 MG Tablet PO (07:49)
[2020-01-31] MEDS: Pantoprazole Sodium 40 MG Tablet PO (07:49)
[2020-01-31] MEDS: amLODIPine 2.5 MG Tablet PO (07:54)
[2020-01-31] MEDS: Menthol/Lanolin/Calamine/Znox 113 GM Tube 1 APPLIC TOPICAL ×2 (08:03→20:21)
[2020-01-31 12:01] LABS: Bedside Glucose 187 mg/dL (70-110)
[2020-01-31 15:06] VITALS: BMI 24.3
[2020-01-31] MEDS: glipiZIDE 5 MG Tablet PO (17:05)
[2020-01-31] MEDS: Rivaroxaban 20 MG Tablet PO (17:05)
[2020-01-31 17:06] LABS: Bedside Glucose 179 mg/dL (70-110)
[2020-01-31 19:23] VITALS: BP 143/72; PULSE 67; RESP 17; TEMP 36.6; O2SAT 96
[2020-01-31 20:21] VITALS: BP 143/72; PULSE 67
[2020-01-31] MEDS: Atorvastatin Calcium 40 MG Tablet PO (20:21)
[2020-01-31] MEDS: QUEtiapine 25 MG Tablet PO (20:21)
[2020-01-31 21:11] LABS: Bedside Glucose 207 mg/dL (70-110)
[2020-02-01 05:00] VITALS: BMI 24.3
[2020-02-01] MEDS: Acetaminophen 500 MG Tablet 1000 MG PO ×3 (06:02→20:38)
[2020-02-01] MEDS: Capsaicin 0.025% 1 APPLIC Tube TOPICAL ×3 (06:03→20:38)
[2020-02-01 06:30] LABS: Bedside Glucose 159 mg/dL (70-110)
[2020-02-01] MEDS: glipiZIDE 10 MG Tablet PO (06:43)
[2020-02-01 07:30] VITALS: BP 119/57; PULSE 69; RESP 16; TEMP 36.8; O2SAT 96
[2020-02-01] MEDS: amLODIPine 2.5 MG Tablet PO (08:13)
[2020-02-01] MEDS: Aspirin 81 MG TAB.CHEW PO (08:13)
[2020-02-01] MEDS: Sertraline 100 MG Tablet PO (08:13)
[2020-02-01] MEDS: Lisinopril 10 MG Tablet PO ×2 (08:13→20:38)
[2020-02-01] MEDS: Pantoprazole Sodium 40 MG Tablet PO (08:13)
[2020-02-01 08:14] VITALS: PULSE 68
[2020-02-01] MEDS: Metoprolol(XL)Succ 25 MG Tablet PO ×2 (08:14→20:39)
[2020-02-01] MEDS: Menthol/Lanolin/Calamine/Znox 113 GM Tube 1 APPLIC TOPICAL ×2 (08:16→20:40)
[2020-02-01 12:01] LABS: Bedside Glucose 251 mg/dL (70-110)
[2020-02-01 14:50] VITALS: BMI 24.3
[2020-02-01] MEDS: Rivaroxaban 20 MG Tablet PO (16:25)
[2020-02-01 16:26] LABS: Bedside Glucose 242 mg/dL (70-110)
[2020-02-01] MEDS: glipiZIDE 5 MG Tablet PO (16:26)
[2020-02-01 18:59] VITALS: BP 133/76; PULSE 61; RESP 16; TEMP 36.7; O2SAT 96
[2020-02-01 20:39] VITALS: BP 133/76; PULSE 61
[2020-02-01] MEDS: QUEtiapine 25 MG Tablet PO (20:39)
[2020-02-01] MEDS: Atorvastatin Calcium 40 MG Tablet PO (20:40)
[2020-02-01 21:20] LABS: Bedside Glucose 152 mg/dL (70-110)
[2020-02-02 05:00] VITALS: BMI 24.3
[2020-02-02] MEDS: Capsaicin 0.025% 1 APPLIC Tube TOPICAL ×3 (06:00→21:07)
[2020-02-02] MEDS: Acetaminophen 500 MG Tablet 1000 MG PO ×3 (06:01→21:09)
[2020-02-02 06:31] LABS: Bedside Glucose 116 mg/dL (70-110)
[2020-02-02] MEDS: glipiZIDE 10 MG Tablet PO (06:42)
[2020-02-02 07:04] VITALS: BP 112/65; PULSE 58; RESP 16; TEMP 36.6; O2SAT 100
[2020-02-02 07:23] VITALS: PULSE 64
[2020-02-02] MEDS: amLODIPine 2.5 MG Tablet PO (07:23)
[2020-02-02] MEDS: Sertraline 100 MG Tablet PO (07:23)
[2020-02-02] MEDS: Lisinopril 10 MG Tablet PO ×2 (07:23→21:09)
[2020-02-02] MEDS: Aspirin 81 MG TAB.CHEW PO (07:23)
[2020-02-02] MEDS: Metoprolol(XL)Succ 25 MG Tablet PO ×2 (07:23→21:10)
[2020-02-02] MEDS: Pantoprazole Sodium 40 MG Tablet PO (07:24)
[2020-02-02] MEDS: Menthol/Lanolin/Calamine/Znox 113 GM Tube 1 APPLIC TOPICAL ×2 (07:31→21:05)
[2020-02-02 08:40] VITALS: BMI 24.3
--- NOTE | 2020-02-02 08:43 | PN_ITS ---
Progress Note Zena was seen on team rounds today. Her daughter participated in the meeting by phone. Afebrile VSS - BP is well controlled and the HR is within normal limits Maintaining appropriate oxygen saturation on RA Oral intake is Good She has lost about 3 lbs since admission Still incontinent Blood sugar record was reviewed. The blood sugars at noon are still high, even with the earlier time of administration of Glipizide. FBS is good. Discussed with nursing - no problems that need addressed Reviewed the PT/OT/ST notes. Zena is able to do static standing but has not been able to ambulate. Chantell is standing 6-8 minutes in the lolly lift. Still with left side neglect. Easily distracted. Medication list reviewed. She is sleeping better with the increase in the Seroquel. She is less distracted today during TEAM meeting than last week. She is sometimes making eye contact now and she is smiling at times and responding to questions. Her only question is when can she go home. when I went back and talked with her by myself she talked more than usual and when I reminded her to look at me she made good eye contact. She likes to talk about her garden. she is able to follow simple commands. Alert, appropriate, looks last depressed today than last week. Better facial expression and smiling at times. Mucous membranes are moist Lungs-clear to auscultation, diminished in the bases due to poor inspiratory effort Heart-regular rate and rhythm, no gallop Abdomen-soft, nontender, nondistended, BS's are present and they are normal Left facial droop. She was able to raise her left arm for me today and touch her nose on command. She has ataxia with the LUE. The left leg is still 0/5. the only thing she was able to do was to internally rotate the leg a little. No movement of the toes and can not move her heel. Impressions 1. post stroke debility 2. multiple BL lacunar infarcts in many different areas due to AF - on anticoagulation 3. HTN - controlled 4. DM II - adjusting medication to keep BS's > 100 and less than 220 for now. She has no Hypoglycemia 5. possible multiinfarct dementia? 6. Depression - Sertraline dose has been increased to 100 mg daily for the past week and she is making better eye contact, participating in conversation and smiling. She is looking forward to a visit with her family outside later this week. 7. insomnia and confusion - increase the Seroquel to 25 mg Q HS. the confusion and the insomnia have improved 8. encephalopathy due to CVA's Add Lantus in the AM - 10 units and continue to monitor blood sugars QID. When I asked her if she thought it would be important to be able to walk prior to going home she said yes. She is not aware that if we stood her and asked her to walk that she would fall......she thinks she can not walk because we are not allowing her to walk. Progress is expected to be slow due to the numerous lacunar infarcts in many dif ferent areas of the brain. That being said she is progressing in therapy. I think we are finally seeing some + effects from the anti-depressant and I feel this will help with motivation. We did a straight cath and UA today to make sure cystitis has not recurred and the UA is clean. STROKE Vital Signs/Narrative: Vital Signs Temp Pulse Resp BP Pulse Ox 02/02/20 07:23 64 02/02/20 07:04 97.8 F 58 L 16 112/65 100 Inpatient E&M: [id number] Subs Hosp L2
--- NOTE | 2020-02-02 10:11 | CASEMGMT ---
Social Work IDT met with patient and daughter via conference call for Team Meeting. Discussed patient's progress in therapy. Pt is mod x2 for transfers, nursing using SerraLift, mod x1 for standing 1 min at // bars, max-total x2 for all ADLS and toileting, standing in the SerraLift with PT for 4 mins, but still leaning to the left. Pt does not understand weight shifting and does not initiate to move feet. However, sitting on EOB improved, but still poor attention and distractibility. ST working on strategies to pull to left visual field, needing cues and will continue to repeat to regain muscle memory. Pt is swallowing well. Physician ordered urine sample. She remains incontinent for B&B. Pt has severe left neglect and poor insight into deficits. Physician increased Seroquel to assist with sleeping - effective. Nursing to coordinate outdoor visit with and daughter this week to assist with mood. Explained insurance with [employer] 02/04 and continued stay is not guaranteed. Reiterated requesting alternative DC plan as pt cannot return home at this time and the progress with be slow. IDT recommending and pt does not qualify for [facility]. Explained insurance may not cover SNF after RU; therefore, SNF would be private pay. Dtr expressed understanding and will speak with father. Will continue to follow and ReTeam next week, JONELLE Patel
[2020-02-02 10:22] LABS: Bacteria 0 SEEN /hpf (None Seen); Mucous, Urine 0 SEEN /hpf (<or=2+); Red Blood Cells-Urine 0 SEEN /hpf (0-5); White Blood Cells 0 SEEN /hpf (0-5)
[2020-02-02 10:43] LABS: Color, Urine Yellow (Yellow); Glucose, Dipstick Normal (Normal); Ketone-Dipstick Negative (Negative); Leukocyte Esterase-Dipstick Negative /ul (Negative); Nitrite-Dipstick Negative (Negative); Occult Blood-Urine Negative /ul (Negative); Protein-Dipstick Negative (Negative); Specific Gravity, Urine 1.015 (1.002-1.030); Urine Bilirubin Dipstick Negative (Negative); Urine Clarity Sl. Cloudy (Clear); Urine Urobilinogen Normal (Normal)
[2020-02-02 10:51] LABS: Squamous Epithelial Cells - UA 0-5 SEEN /hpf (5-10)
--- NOTE | 2020-02-02 11:08 | NURSING ---
plan for pt to visit outside with Danny and daughter Mildred on 02/05/2020 at 1600
[2020-02-02 11:10] LABS: Bedside Glucose 181 mg/dL (70-110)
[2020-02-02] MEDS: Rivaroxaban 20 MG Tablet PO (16:24)
[2020-02-02] MEDS: glipiZIDE 5 MG Tablet PO (16:24)
[2020-02-02 16:40] LABS: Bedside Glucose 198 mg/dL (70-110)
[2020-02-02 19:10] VITALS: BP 134/66; PULSE 60; RESP 18; TEMP 36.5; O2SAT 98
[2020-02-02 20:07] VITALS: BMI 24.3
[2020-02-02 20:08] VITALS: PULSE 64
[2020-02-02] MEDS: QUEtiapine 25 MG Tablet PO (21:09)
[2020-02-02 21:10] VITALS: PULSE 64
[2020-02-02] MEDS: Atorvastatin Calcium 40 MG Tablet PO (21:10)
[2020-02-02] MEDS: Estrogens,Conj. 1 Tube 1 DOSE VAGINAL (21:17)
[2020-02-02 21:21] LABS: Bedside Glucose 213 mg/dL (70-110)
[2020-02-03] MEDS: Acetaminophen 500 MG Tablet 1000 MG PO ×3 (06:13→21:09)
[2020-02-03] MEDS: glipiZIDE 10 MG Tablet PO (06:14)
[2020-02-03 06:36] LABS: Bedside Glucose 106 mg/dL (70-110)
[2020-02-03] MEDS: Capsaicin 0.025% 1 APPLIC Tube TOPICAL ×3 (06:44→20:06)
[2020-02-03 07:58] VITALS: BP 130/76; PULSE 62; RESP 16; TEMP 36.6; O2SAT 95
[2020-02-03] MEDS: Aspirin 81 MG TAB.CHEW PO (07:59)
[2020-02-03 08:00] VITALS: PULSE 62
[2020-02-03] MEDS: amLODIPine 2.5 MG Tablet PO (08:00)
[2020-02-03] MEDS: Sertraline 100 MG Tablet PO (08:00)
[2020-02-03] MEDS: Metoprolol(XL)Succ 25 MG Tablet PO ×2 (08:00→20:08)
[2020-02-03] MEDS: Pantoprazole Sodium 40 MG Tablet PO (08:00)
[2020-02-03] MEDS: Lisinopril 10 MG Tablet PO ×2 (08:00→20:08)
[2020-02-03] MEDS: Menthol/Lanolin/Calamine/Znox 113 GM Tube 1 APPLIC TOPICAL ×2 (08:01→20:10)
[2020-02-03 08:57] VITALS: BMI 24.3
[2020-02-03 11:20] LABS: Bedside Glucose 145 mg/dL (70-110)
[2020-02-03 16:20] LABS: Bedside Glucose 164 mg/dL (70-110)
[2020-02-03] MEDS: Rivaroxaban 20 MG Tablet PO (17:26)
[2020-02-03] MEDS: glipiZIDE 5 MG Tablet PO (17:26)
[2020-02-03 18:51] VITALS: BP 118/65; PULSE 65; RESP 16; TEMP 37.1; O2SAT 95
[2020-02-03 20:08] VITALS: PULSE 73
[2020-02-03] MEDS: QUEtiapine 25 MG Tablet PO (20:09)
[2020-02-03] MEDS: Senna/Docusate Sodium 1 Tablet 2 TABLET PO (20:09)
[2020-02-03] MEDS: Atorvastatin Calcium 40 MG Tablet PO (20:09)
[2020-02-03 20:17] VITALS: BMI 24.3
[2020-02-03 21:36] LABS: Bedside Glucose 151 mg/dL (70-110)
--- NOTE | 2020-02-03 23:39 | NURSING ---
pt provided check and change. When staff approached pt to awaken her for toileting needs, pt stated that It sure is noisy up here. There was no noise evident. Pts were asleep and no TVs were playing. Pt could not identify what noise she claimed was making too much noise. Pt repositioned to left side & bilat feet elevated on pillow. Pt eyes are closed and staff will continue to monitor.
[2020-02-04] MEDS: Capsaicin 0.025% 1 APPLIC Tube TOPICAL ×3 (06:53→20:14)
[2020-02-04] MEDS: Acetaminophen 500 MG Tablet 1000 MG PO ×3 (07:00→20:15)
[2020-02-04] MEDS: glipiZIDE 10 MG Tablet PO (07:01)
[2020-02-04 07:11] LABS: Bedside Glucose 99 mg/dL (70-110)
[2020-02-04 07:18] VITALS: BP 124/60; PULSE 66; RESP 17; TEMP 36.9; O2SAT 96
[2020-02-04] MEDS: Aspirin 81 MG TAB.CHEW PO (08:25)
[2020-02-04 08:26] VITALS: BP 124/60; PULSE 66
[2020-02-04] MEDS: Metoprolol(XL)Succ 25 MG Tablet PO ×2 (08:26→20:15)
[2020-02-04] MEDS: Pantoprazole Sodium 40 MG Tablet PO (08:26)
[2020-02-04] MEDS: amLODIPine 2.5 MG Tablet PO (08:26)
[2020-02-04] MEDS: Menthol/Lanolin/Calamine/Znox 113 GM Tube 1 APPLIC TOPICAL ×2 (08:27→20:16)
[2020-02-04] MEDS: Sertraline 100 MG Tablet PO (08:27)
[2020-02-04] MEDS: Lisinopril 10 MG Tablet PO ×2 (08:27→20:15)
[2020-02-04 09:27] VITALS: BMI 24.3
--- NOTE | 2020-02-04 10:16 | PCM.PN.BLA ---
Progress Note Afebrile VSS-blood pressure is well controlled. The heart rate is within normal limits. Maintaining appropriate oxygen saturation on RA Oral intake is fair to good. Still needing a lot of encouragement to increase fluid intake continues to be incontinent of both stool and urine Weight is stable. Discussed with nursing - no problems that need addressed Reviewed the PT/OT/ST notes. she was able to ambulate 6 ft and then 12 feet at the wall with MAXA but, she did better with following instructions. She is supervision/set up with eating and grooming. Requiring maximum assistance with bathing and upper body dressing and total assistance with lower body dressing. She is also total assistance with toileting. She had a sower today and had a a hard time maintaining posture and needed a lot of VC's and physical cues to sit up straight and not to lean forward and to the left. she is still unaware of when the Attends are wet and when she has a BM in the attends. She is pocketing liquids and food in the left cheek and does not respond to VC's and tactile stimulation to swallow. She is eating with supervision Medication list reviewed. Blood sugar record was reviewed. Blood sugars are controlled with the addition of Lantus 10 units daily to her drug regimen. Fasting blood sugar today was 99. No hypoglycemic episodes. Zena denies CP, SOB, cough, cephalgia. She is not making good eye contact unless told to look at me and then she will. Alert, no apparent distress, sitting in the recliner at the bedside Mucous membranes are a little dry Lungs-diminished but clear to auscultation throughout, no tachypnea, no conversational dyspnea Heart-regular rhythm, no murmur, no gallop Abdomen-soft, nontender, nondistended, bowel sounds present No peripheral edema, no calf tenderness No rashes, no breakdown No significant change in the neuro exam. She does not seem as depressed and she is talking in more than 1-3 word sentences now. Impressions 1. post stroke debility 2. multiple BL lacunar infarcts in many different areas due to AF - on anticoagulation 3. HTN - controlled 4. DM II - adjusting medication to keep BS's > 100 and less than 220 for now. She has no Hypoglycemia 5. possible multiinfarct dementia? 6. Depression - Sertraline dose has been increased to 100 mg daily for the past week and she is making better eye contact, participating in conversation and smiling. She is looking forward to a visit with her family outside later this week. 7. insomnia and confusion - increase the Seroquel to 25 mg Q HS. the confusion and the insomnia have improved 8. encephalopathy due to CVA's BMP and H&H in the a.m. Continue therapy Continue current medications Continue to monitor blood sugars 4 times daily and if she has no blood sugars greater than 200 for 48 hours in a row will decrease the frequency to twice daily. STROKE Vital Signs/Narrative: Vital Signs Temp Pulse Resp BP Pulse Ox 02/04/20 08:26 66 124/60 H 02/04/20 07:18 98.4 F 66 17 124/60 H 96 Inpatient E&M: [id number] Subs Hosp L2
[2020-02-04 11:41] LABS: Bedside Glucose 204 mg/dL (70-110)
[2020-02-04 16:11] LABS: Bedside Glucose 179 mg/dL (70-110)
[2020-02-04] MEDS: glipiZIDE 5 MG Tablet PO (16:29)
[2020-02-04] MEDS: Rivaroxaban 20 MG Tablet PO (16:29)
[2020-02-04 19:06] VITALS: BP 130/68; PULSE 71; RESP 16; TEMP 36.8; O2SAT 97
[2020-02-04 20:15] VITALS: BP 130/68; PULSE 71
[2020-02-04] MEDS: QUEtiapine 25 MG Tablet PO (20:16)
[2020-02-04] MEDS: Senna/Docusate Sodium 1 Tablet 2 TABLET PO (20:16)
[2020-02-04] MEDS: Atorvastatin Calcium 40 MG Tablet PO (20:16)
[2020-02-04 22:50] LABS: Bedside Glucose 101 mg/dL (70-110)
[2020-02-05 05:54] LABS: Hematocrit 37.1 % (37-47); Hemoglobin 11.8 g/dL (12.0-15.0)
[2020-02-05] MEDS: Capsaicin 0.025% 1 APPLIC Tube TOPICAL ×3 (06:13→22:08)
[2020-02-05] MEDS: Acetaminophen 500 MG Tablet 1000 MG PO ×3 (06:13→22:16)
[2020-02-05 06:26] LABS: Bedside Glucose 96 mg/dL (70-110)
[2020-02-05 06:28] LABS: Anion Gap 9 (5-15); BUN 26 mg/dL (7-18); BUN/Creat Ratio 26.9 RATIO (10-20); Calcium,Total 8.9 mg/dL (8.5-10.1); Chloride 106 mmol/L (98-107); Creatinine, Serum 0.97 mg/dL (0.55-1.02); EST Glomerular Filtration Rate 60 mL/min (>60); Est Glom Filt Rate - Afr Amer 73 mL/min (>60); Estimated Creatinine Clearance 46.48 ml/min; Glucose 100 mg/dL (74-106); Potassium 4.1 mmol/L (3.5-5.1); Sodium Level 141 mmol/L (136-145)
[2020-02-05 07:28] VITALS: BP 124/67; PULSE 65
[2020-02-05] MEDS: Sertraline 100 MG Tablet PO (07:28)
[2020-02-05] MEDS: Lisinopril 10 MG Tablet PO ×2 (07:28→22:16)
[2020-02-05] MEDS: Metoprolol(XL)Succ 25 MG Tablet PO ×2 (07:28→22:19)
[2020-02-05] MEDS: glipiZIDE 10 MG Tablet PO (07:29)
[2020-02-05] MEDS: Pantoprazole Sodium 40 MG Tablet PO (07:29)
[2020-02-05] MEDS: Aspirin 81 MG TAB.CHEW PO (07:29)
[2020-02-05] MEDS: amLODIPine 2.5 MG Tablet PO (07:29)
[2020-02-05] MEDS: Menthol/Lanolin/Calamine/Znox 113 GM Tube 1 APPLIC TOPICAL ×2 (07:30→22:20)
[2020-02-05 08:32] VITALS: BP 124/67; PULSE 65; RESP 12; TEMP 36.8; O2SAT 96
[2020-02-05 09:16] VITALS: BMI 24.3
[2020-02-05 11:15] LABS: Bedside Glucose 184 mg/dL (70-110)
--- NOTE | 2020-02-05 11:50 | PCM.PN.BLA ---
Progress Note Afebrile VSS-blood pressure is well controlled. Heart rate is within normal limits and when I listen to her chest she has regular rhythm. Maintaining appropriate oxygen saturation on RA Oral intake is falling off again...... p.o. intake on 02/03/2020 was 1078 and on 02/04/2020 was 900. BUN/creatinine ratio is once again elevated to 26. Still incontinent of both urine and stool. Last bowel movement 02/05/2020. Discussed with nursing - no problems that need addressed. She slept well last night. Reviewed the PT/OT/ST notes She walked the length of the wall rail yesterday. She is more talkative. Definitely does better when she gets good sleep Medication list reviewed. Blood sugar record reviewed. Fasting sugar this morning was 96. The at bedtime blood sugar was 101. Blood sugar at lunch on 02/04/2020 was 204 and at 4 PM was 179. The blood sugar with lunch today is 184. Currently she is taking glipizide 10 mg p.o. every morning and 5 mg with supper. Lantus 10 units daily in the a.m. was added a few days ago. All lab was personally reviewed. The hemoglobin is stable at 12.8. BMP shows an elevated BUN at 26 with a creatinine of 0.97 and a BUN/creatinine ratio of 26.9. Calcium is within normal limits. alert and appropriate. Making better eye contact today than yesterday. She is more talkative when I ask her questions. She told me she was going to walk when she was wheeled out of her room for therapy today. Lungs - CTA HRRR, without ectopy abd - soft, NT, ND, BS present no edema. Impressions 1. debility post stroke 2. PAF - on Xarelto and the HGB is stable 3. Depression - improving. currently on Sertraline 100 mg daily 4. encephalopathy due to multiple lacunar infarcts 5. DM II Change the glipizide to 15 mg p.o. every morning and discontinue the 5 mg with supper. Continue Lantus 10 units subcu daily. Goal HGBA1C is 7-7.5 STROKE Vital Signs/Narrative: Vital Signs Temp Pulse Resp BP Pulse Ox 02/05/20 08:32 98.2 F 65 12 124/67 H 96 Inpatient E&M: [id number] Subs Hosp L1
--- NOTE | 2020-02-05 15:35 | CHAPLAIN ---
Type of Pastoral Visit ___ Initial Visit _x__ Follow-up Visit ___ On-call Visit ___ General Patient Visit ___ Spiritual Assessment ___ Family Conference ___ Bereavement ___ Rapid Response ___ Code Blue ___ Other (describe below) Pastoral Care Referral From _x__ Patient ___ Family _x__ Nurse ___ Physician ___ Loom Repairer ___ Shake Cutter ___ Other (describe below) Sacrament/Intervention _x__ Active listening ___ Anointing ___ Caodaism ___ Bereavement ___ Communion ___ Hannah exploration ___ ___ Life review _x__ Prayer ___ Reconciliation ___ Sacrament of Sick _x__ Supportive presence ___ Wedding ___ Other (describe below) Pastoral Comments
[2020-02-05] MEDS: Rivaroxaban 20 MG Tablet PO (16:23)
[2020-02-05 16:30] LABS: Bedside Glucose 142 mg/dL (70-110)
[2020-02-05 18:58] VITALS: BP 101/58; PULSE 66; RESP 16; TEMP 36.6; O2SAT 97
[2020-02-05 21:11] LABS: Bedside Glucose 181 mg/dL (70-110)
[2020-02-05] MEDS: Atorvastatin Calcium 40 MG Tablet PO (22:13)
[2020-02-05] MEDS: Estrogens,Conj. 1 Tube 1 DOSE VAGINAL (22:14)
[2020-02-05] MEDS: QUEtiapine 25 MG Tablet PO (22:15)
[2020-02-05 22:19] VITALS: BP 136/69; PULSE 70
[2020-02-05 23:59] VITALS: BMI 24.3
[2020-02-06] MEDS: Acetaminophen 500 MG Tablet 1000 MG PO ×3 (06:30→21:25)
[2020-02-06] MEDS: Capsaicin 0.025% 1 APPLIC Tube TOPICAL ×3 (06:30→21:33)
[2020-02-06 06:40] LABS: Bedside Glucose 148 mg/dL (70-110)
[2020-02-06 07:00] VITALS: BP 145/71; PULSE 59; RESP 18; TEMP 36.5; O2SAT 96
[2020-02-06 07:39] VITALS: O2SAT 99
[2020-02-06] MEDS: glipiZIDE 10 MG Tablet 15 MG PO (08:49)
[2020-02-06] MEDS: amLODIPine 2.5 MG Tablet PO (08:51)
[2020-02-06] MEDS: Sertraline 100 MG Tablet PO (08:51)
[2020-02-06] MEDS: Aspirin 81 MG TAB.CHEW PO (08:51)
[2020-02-06] MEDS: Pantoprazole Sodium 40 MG Tablet PO (08:51)
[2020-02-06] MEDS: Lisinopril 10 MG Tablet PO ×2 (08:51→21:26)
[2020-02-06] MEDS: Menthol/Lanolin/Calamine/Znox 113 GM Tube 1 APPLIC TOPICAL ×2 (08:54→21:34)
[2020-02-06 08:58] VITALS: PULSE 64
[2020-02-06] MEDS: Metoprolol(XL)Succ 25 MG Tablet PO ×2 (08:58→21:25)
[2020-02-06 12:16] LABS: Bedside Glucose 166 mg/dL (70-110)
[2020-02-06 13:44] VITALS: BMI 24.3
--- NOTE | 2020-02-06 15:55 | PN_ITS ---
Progress Note Afebrile since admission Blood pressures well controlled Maintaining appropriate oxygen saturation on room air Oral intake was better on 02/05/2020 but the nurses have to remind her to drink water and she will not do it on her own. Still incontinent of urine and stool. Last bowel movement was 02/05/2020. PT/OT/ST notes were reviewed. Blood sugar record was reviewed. Blood sugars are now in good control with no hypoglycemia. She is progressing slowly. short term memory is poor. Still easily distracted. She is max assist with Upper body dressing and total assist with LB dressing. Alert, no apparent distress Lungs-clear to auscultation but diminished secondary to poor inspiratory effort Not tachypneic, no conversational dyspnea Heart-regular rate and rhythm, no gallop, no murmur, no rub Abdomen-soft, nontender, nondistended, bowel sounds present No peripheral edema no significant change in the neuro exam Impressions 1. debility post stroke 2. PAF - on Xarelto and the HGB is stable 3. Depression - improving. currently on Sertraline 100 mg daily 4. encephalopathy due to multiple lacunar infarcts 5. DM II Continue current orders Continue therapy Inpatient E&M: [id number] [facility] Hosp L1
[2020-02-06 17:15] LABS: Bedside Glucose 71 mg/dL (70-110)
[2020-02-06] MEDS: Rivaroxaban 20 MG Tablet PO (17:15)
--- NOTE | 2020-02-06 17:15 | NURSING ---
Blood sugar 71, pt asymptomatic. Set up for supper.
[2020-02-06 19:35] VITALS: BP 128/62; PULSE 85; RESP 18; TEMP 36.3; O2SAT 95
[2020-02-06 21:22] VITALS: BP 108/62; PULSE 66
[2020-02-06 21:25] VITALS: BP 108/62; PULSE 66
[2020-02-06] MEDS: Atorvastatin Calcium 40 MG Tablet PO (21:25)
[2020-02-06 21:26] LABS: Bedside Glucose 101 mg/dL (70-110)
[2020-02-06] MEDS: QUEtiapine 25 MG Tablet PO (21:26)
[2020-02-07 03:56] LABS: Bedside Glucose 105 mg/dL (70-110)
--- NOTE | 2020-02-07 04:05 | NURSING ---
Pt's blood sugar was 71 at 1713 and was asymptomatic per report. Pt's blood sugar 101 at 2120. obtained blood sugar of 105 at 0349.
[2020-02-07 04:13] VITALS: BMI 24.3
[2020-02-07] MEDS: Acetaminophen 500 MG Tablet 1000 MG PO ×3 (05:49→21:12)
[2020-02-07] MEDS: Capsaicin 0.025% 1 APPLIC Tube TOPICAL ×3 (05:50→21:12)
[2020-02-07 06:20] LABS: Bedside Glucose 109 mg/dL (70-110)
[2020-02-07] MEDS: Lisinopril 10 MG Tablet PO ×2 (08:14→21:12)
[2020-02-07] MEDS: Sertraline 100 MG Tablet PO (08:15)
[2020-02-07] MEDS: glipiZIDE 10 MG Tablet 15 MG PO (08:15)
[2020-02-07] MEDS: amLODIPine 2.5 MG Tablet PO (08:16)
[2020-02-07] MEDS: Aspirin 81 MG TAB.CHEW PO (08:16)
[2020-02-07] MEDS: Pantoprazole Sodium 40 MG Tablet PO (08:17)
[2020-02-07 08:18] VITALS: PULSE 70
[2020-02-07] MEDS: Metoprolol(XL)Succ 25 MG Tablet PO ×2 (08:18→21:13)
[2020-02-07] MEDS: Menthol/Lanolin/Calamine/Znox 113 GM Tube 1 APPLIC TOPICAL ×2 (08:25→21:13)
[2020-02-07 08:45] VITALS: BP 119/60; PULSE 62; RESP 16; TEMP 36.6; O2SAT 99
[2020-02-07 11:30] LABS: Bedside Glucose 207 mg/dL (70-110)
[2020-02-07 14:59] VITALS: BMI 24.3
[2020-02-07 17:20] LABS: Bedside Glucose 75 mg/dL (70-110)
--- NOTE | 2020-02-07 17:57 | PCM.PN.BLA ---
Progress Note Afebrile Blood pressure is well controlled Maintaining appropriate oxygen saturation on room air Oral intake: 02/06/2020 was 1080. Blood sugar record was reviewed. The blood sugar prior to supper has been in the 70s the past 2 days. She is currently on 10 units of Lantus in the a.m. and 15 mg of glipizide. Alert, NAD L- CTA HRRR abd - soft NT, ND Impressions 1. debility post stroke 2. PAF - on Xarelto and the HGB is stable 3. Depression - improving. currently on Sertraline 100 mg daily 4. encephalopathy due to multiple lacunar infarcts 5. DM II - BP is lower than I want to see it at 5 PM so will decrease the Lantus to 6 units daily and if the BS's at 5 PM remain low will DC the Lantus Continue to urge to increase her fluid intake continue therapy Inpatient E&M: [id number] Subs Hosp L1
[2020-02-07] MEDS: Rivaroxaban 20 MG Tablet PO (18:27)
[2020-02-07 18:53] VITALS: BP 135/66; PULSE 72; RESP 16; TEMP 36.8; O2SAT 95
[2020-02-07 21:13] VITALS: PULSE 69
[2020-02-07] MEDS: Atorvastatin Calcium 40 MG Tablet PO (21:13)
[2020-02-07] MEDS: QUEtiapine 25 MG Tablet PO (21:13)
[2020-02-07 21:16] LABS: Bedside Glucose 155 mg/dL (70-110)
[2020-02-07 21:24] VITALS: BMI 24.3
[2020-02-08] MEDS: Acetaminophen 500 MG Tablet 1000 MG PO ×3 (06:04→21:36)
[2020-02-08] MEDS: glipiZIDE 10 MG Tablet 15 MG PO (06:04)
[2020-02-08] MEDS: Capsaicin 0.025% 1 APPLIC Tube TOPICAL ×3 (06:06→20:12)
[2020-02-08 06:45] LABS: Bedside Glucose 126 mg/dL (70-110)
[2020-02-08 08:34] VITALS: BP 119/62; PULSE 63; RESP 16; TEMP 36.9; O2SAT 96
[2020-02-08] MEDS: amLODIPine 2.5 MG Tablet PO (08:39)
[2020-02-08] MEDS: Pantoprazole Sodium 40 MG Tablet PO (08:39)
[2020-02-08] MEDS: Aspirin 81 MG TAB.CHEW PO (08:39)
[2020-02-08 08:40] VITALS: PULSE 63
[2020-02-08] MEDS: Sertraline 100 MG Tablet PO (08:40)
[2020-02-08] MEDS: Lisinopril 10 MG Tablet PO ×2 (08:40→20:11)
[2020-02-08] MEDS: Metoprolol(XL)Succ 25 MG Tablet PO ×2 (08:40→20:11)
[2020-02-08] MEDS: Menthol/Lanolin/Calamine/Znox 113 GM Tube 1 APPLIC TOPICAL ×2 (08:41→20:11)
[2020-02-08 09:19] VITALS: BMI 24.3
[2020-02-08 11:10] LABS: Bedside Glucose 182 mg/dL (70-110)
[2020-02-08] MEDS: Rivaroxaban 20 MG Tablet PO (16:20)
[2020-02-08 16:35] LABS: Bedside Glucose 96 mg/dL (70-110)
[2020-02-08 19:16] VITALS: BP 128/59; PULSE 69; RESP 18; TEMP 36.9; O2SAT 96
[2020-02-08 19:53] VITALS: BMI 24.3
[2020-02-08 20:11] VITALS: PULSE 67
[2020-02-08] MEDS: Senna/Docusate Sodium 1 Tablet 2 TABLET PO (20:11)
[2020-02-08] MEDS: QUEtiapine 25 MG Tablet PO (20:11)
[2020-02-08] MEDS: Atorvastatin Calcium 40 MG Tablet PO (20:11)
[2020-02-08 21:20] LABS: Bedside Glucose 158 mg/dL (70-110)
[2020-02-09] MEDS: Capsaicin 0.025% 1 APPLIC Tube TOPICAL ×3 (06:15→20:22)
[2020-02-09] MEDS: Acetaminophen 500 MG Tablet 1000 MG PO ×3 (06:15→20:21)
[2020-02-09] MEDS: glipiZIDE 10 MG Tablet 15 MG PO (06:16)
[2020-02-09 06:35] LABS: Bedside Glucose 124 mg/dL (70-110)
[2020-02-09 07:00] VITALS: BP 124/85; PULSE 62; RESP 16; TEMP 36.9; O2SAT 94; O2SAT 99
[2020-02-09 07:27] VITALS: PULSE 77
[2020-02-09] MEDS: Metoprolol(XL)Succ 25 MG Tablet PO ×2 (07:27→20:21)
[2020-02-09] MEDS: Pantoprazole Sodium 40 MG Tablet PO (07:27)
[2020-02-09] MEDS: amLODIPine 2.5 MG Tablet PO (07:27)
[2020-02-09] MEDS: Sertraline 100 MG Tablet PO (07:27)
[2020-02-09] MEDS: Aspirin 81 MG TAB.CHEW PO (07:27)
[2020-02-09] MEDS: Lisinopril 10 MG Tablet PO ×2 (07:27→20:21)
[2020-02-09] MEDS: Menthol/Lanolin/Calamine/Znox 113 GM Tube 1 APPLIC TOPICAL ×2 (07:28→20:20)
--- NOTE | 2020-02-09 11:32 | PCM.PN.BLA ---
Progress Note Zena was seen on team rounds today. Her daughter Rachael participated in rounds by phone. Afebrile VSS Maintaining appropriate oxygen saturation on RA Oral intake is erratic but generally better than it was Discussed with nursing - no problems that need addressed. She is sleeping well. Reviewed the PT/OT/ST notes Medication list reviewed. She is looking at a magazine and not participating in the conversation or making eye contact with anyone in the room. When I called her on this she smiled at me as though she knows she is doing this. She is alert and has not been napping during the days much anymore. Lungs - CTA, HRRR, no edema Tolerating the Xarelto with no large bruises, bleeding gums or hematochezia Impressions 1. debility post strokes -due to atrial fibrillation 2. PAF - on Xarelto and the HGB is stable 3. Depression - improving. currently on Sertraline 100 mg daily 4. encephalopathy due to multiple lacunar infarcts 5. DM II Continue therapy with no change to medications at this time. Zena is progressing, slowly, but doing much better and I expect that with the number of infarcts she has had she will take longer than most our stroke patients to rehabilitate. The antidepressant has helped a lot with her motivation.....she is still having trouble with being easily distracted. She is lifting the left arm now and she is advancing the left foot by herself sometimes with ambulation Inpatient E&M: [id number] Subs Hosp L2
[2020-02-09 11:55] LABS: Bedside Glucose 129 mg/dL (70-110)
--- NOTE | 2020-02-09 13:48 | CASEMGMT ---
Social Work IDT met with patient and dtr via conference call for care plan meeting. Discussed patient's progress in therapy. Pt is max x1 assist for sitting to standing, weaning off of the Saralift, walking in the // bars for 10 ft max assist, and understanding weight shifting more with cues but still leans forward. Pt remains incontinent, max for UE ADLs, dependent x2 for LE ADLs. Pt is on a [facility] soft diet, pocketing food, taking large bites. Pt needs supervised with meals with cues, to take small bites, and sips between bites. Pt has inattention, very distractible, poor insight, slow or no response time, and left visual neglect. Nursing using mod cues with pt and she gets more confused at night. Explained [employer] insurance with [employer] 02/11 and continued stay is not guaranteed. The plan is to remain in [place] until pt can return home or pay privately at a SNF. Will continue to follow. JONELLE regaladoW
[2020-02-09 14:05] VITALS: BMI 24.3
[2020-02-09 18:06] LABS: Bedside Glucose 122 mg/dL (70-110)
[2020-02-09] MEDS: Rivaroxaban 20 MG Tablet PO (18:26)
[2020-02-09] MEDS: Atorvastatin Calcium 40 MG Tablet PO (20:20)
[2020-02-09] MEDS: Estrogens,Conj. 1 Tube 1 DOSE VAGINAL (20:20)
[2020-02-09 20:21] VITALS: PULSE 67
[2020-02-09] MEDS: QUEtiapine 25 MG Tablet PO (20:21)
[2020-02-09 20:29] VITALS: BP 129/64; PULSE 67; RESP 16; TEMP 36.6; O2SAT 97
[2020-02-09 21:06] LABS: Bedside Glucose 193 mg/dL (70-110)
[2020-02-09 23:57] VITALS: BMI 24.3
[2020-02-10] MEDS: Acetaminophen 500 MG Tablet 1000 MG PO ×3 (06:34→22:24)
[2020-02-10] MEDS: Capsaicin 0.025% 1 APPLIC Tube TOPICAL ×3 (06:35→22:38)
[2020-02-10 07:10] LABS: Bedside Glucose 143 mg/dL (70-110)
[2020-02-10 07:34] VITALS: O2SAT 94
[2020-02-10] MEDS: glipiZIDE 10 MG Tablet 15 MG PO (08:30)
[2020-02-10 08:31] VITALS: BP 108/54; PULSE 60
[2020-02-10] MEDS: amLODIPine 2.5 MG Tablet PO (08:31)
[2020-02-10] MEDS: Aspirin 81 MG TAB.CHEW PO (08:31)
[2020-02-10] MEDS: Pantoprazole Sodium 40 MG Tablet PO (08:31)
[2020-02-10] MEDS: Metoprolol(XL)Succ 25 MG Tablet PO ×2 (08:31→22:24)
[2020-02-10] MEDS: Senna/Docusate Sodium 1 Tablet 2 TABLET PO ×2 (08:31→22:25)
[2020-02-10] MEDS: Lisinopril 10 MG Tablet PO ×2 (08:31→22:24)
[2020-02-10] MEDS: Sertraline 100 MG Tablet PO (08:31)
[2020-02-10] MEDS: Menthol/Lanolin/Calamine/Znox 113 GM Tube 1 APPLIC TOPICAL ×2 (08:33→22:23)
[2020-02-10 08:37] VITALS: BP 108/54; PULSE 60; RESP 16; TEMP 36.6; O2SAT 97
[2020-02-10 11:21] VITALS: BMI 24.3
[2020-02-10 11:51] LABS: Bedside Glucose 165 mg/dL (70-110)
--- NOTE | 2020-02-10 14:47 | PN_ITS ---
Progress Note Afebrile Blood pressure and heart rate are well controlled. Maintaining appropriate oxygen saturation on room air while awake. On 2 L nasal cannula at night secondary to abnormal overnight trending pulse ox. Oral intake on 02/09/2020 was good at 1440. Continues to be incontinent of both urine and stool. Blood sugar record was reviewed and the blood sugars are under excellent control with no hypoglycemia in the past 3 days. PT/OT/ST notes were reviewed. She was able to ambulate with a wheeled walker today with moderate to max assist of 2. The first walk she ambulated 10 feet and the second walk she ambulated 20 feet. She is able to advance the left lower extremity at times now. Zena is complaining of some left knee pain today now that she is ambulating. She has been getting Zostrix 3 times a day since January 21. PT applied an COURTNEY wrap today and Zena stated this helped. Alert, initiating conversation now. She looks at me if I remind her to look at me when she talks with me. She is smiling and appears to be in a good mood. Doing well with participation in therapy without having to coax her. Lungs - CTA H -RRR abd - soft, NT, ND, BS's present no peripheral edema no calf tenderness Impressions 1. post stroke debility - continues to improve, albeit slowly 2. depression - doing much better with good sleep, more participation with conversation, willingly participating in therapy,increased fluid intake and smiling a lot 3. DM II - well controlled 4. HTN - well controlled Continue therapy Inpatient E&M: [id number] [facility] Hosp L1
[2020-02-10] MEDS: Rivaroxaban 20 MG Tablet PO (17:04)
[2020-02-10 17:06] LABS: Bedside Glucose 152 mg/dL (70-110)
[2020-02-10 22:00] VITALS: BP 98/80; PULSE 70; RESP 18; TEMP 36.7; O2SAT 97; BMI 24.3
[2020-02-10 22:24] VITALS: BP 98/80; PULSE 70
[2020-02-10] MEDS: QUEtiapine 25 MG Tablet PO (22:24)
[2020-02-10] MEDS: Atorvastatin Calcium 40 MG Tablet PO (22:25)
[2020-02-10 23:00] LABS: Bedside Glucose 133 mg/dL (70-110)
--- NOTE | 2020-02-11 04:59 | NURSING ---
Reviewed and agree with [employer]IST [employer]ODBLOCK documentation and charting.
[2020-02-11] MEDS: Acetaminophen 500 MG Tablet 1000 MG PO ×3 (05:40→21:36)
[2020-02-11 06:40] LABS: Bedside Glucose 135 mg/dL (70-110)
[2020-02-11 06:49] VITALS: O2SAT 94
[2020-02-11] MEDS: glipiZIDE 10 MG Tablet 15 MG PO (06:57)
[2020-02-11] MEDS: Capsaicin 0.025% 1 APPLIC Tube TOPICAL ×3 (06:57→21:36)
[2020-02-11] MEDS: Menthol/Lanolin/Calamine/Znox 113 GM Tube 1 APPLIC TOPICAL ×2 (07:42→21:31)
[2020-02-11] MEDS: Sertraline 100 MG Tablet PO (07:43)
[2020-02-11] MEDS: Senna/Docusate Sodium 1 Tablet 2 TABLET PO ×2 (07:43→21:35)
[2020-02-11] MEDS: Lisinopril 10 MG Tablet PO ×2 (07:43→21:36)
[2020-02-11 07:44] VITALS: BP 105/57; PULSE 60
[2020-02-11] MEDS: Pantoprazole Sodium 40 MG Tablet PO (07:44)
[2020-02-11] MEDS: amLODIPine 2.5 MG Tablet PO (07:44)
[2020-02-11] MEDS: Metoprolol(XL)Succ 25 MG Tablet PO ×2 (07:44→21:36)
[2020-02-11] MEDS: Aspirin 81 MG TAB.CHEW PO (07:44)
[2020-02-11 08:23] VITALS: BP 105/57; PULSE 60; RESP 17; TEMP 36.5; O2SAT 100
[2020-02-11 09:15] VITALS: BMI 24.3
[2020-02-11 11:16] LABS: Bedside Glucose 141 mg/dL (70-110)
[2020-02-11 16:40] LABS: Bedside Glucose 131 mg/dL (70-110)
[2020-02-11] MEDS: Rivaroxaban 20 MG Tablet PO (17:53)
[2020-02-11] MEDS: Atorvastatin Calcium 40 MG Tablet PO (21:35)
[2020-02-11] MEDS: QUEtiapine 25 MG Tablet PO (21:35)
[2020-02-11 21:36] VITALS: BP 115/67; PULSE 76
[2020-02-11 22:00] VITALS: BP 115/67; PULSE 76; RESP 16; TEMP 36.5; O2SAT 96; BMI 24.3
[2020-02-11 23:05] LABS: Bedside Glucose 122 mg/dL (70-110)
--- NOTE | 2020-02-12 00:49 | NURSING ---
Reviewed and agree with OLIVE GRADER documentation and charting.
[2020-02-12] MEDS: Acetaminophen 500 MG Tablet 1000 MG PO ×2 (06:40→22:19)
[2020-02-12] MEDS: Capsaicin 0.025% 1 APPLIC Tube TOPICAL ×3 (06:40→22:18)
[2020-02-12 06:41] LABS: Bedside Glucose 135 mg/dL (70-110)
[2020-02-12] MEDS: glipiZIDE 10 MG Tablet 15 MG PO (06:41)
[2020-02-12 06:51] VITALS: O2SAT 97
[2020-02-12] MEDS: amLODIPine 2.5 MG Tablet PO (07:52)
[2020-02-12] MEDS: Menthol/Lanolin/Calamine/Znox 113 GM Tube 1 APPLIC TOPICAL ×2 (07:52→22:20)
[2020-02-12] MEDS: Senna/Docusate Sodium 1 Tablet 2 TABLET PO ×2 (07:52→22:19)
[2020-02-12] MEDS: Pantoprazole Sodium 40 MG Tablet PO (07:52)
[2020-02-12] MEDS: Aspirin 81 MG TAB.CHEW PO (07:52)
[2020-02-12 07:53] VITALS: BP 124/68; PULSE 65
[2020-02-12] MEDS: Metoprolol(XL)Succ 25 MG Tablet PO ×2 (07:53→22:19)
[2020-02-12] MEDS: Sertraline 100 MG Tablet PO (07:53)
[2020-02-12] MEDS: Lisinopril 10 MG Tablet PO ×2 (07:53→22:19)
[2020-02-12 09:01] VITALS: BP 124/68; PULSE 65; RESP 16; TEMP 36.6; O2SAT 97
[2020-02-12 11:51] LABS: Bedside Glucose 162 mg/dL (70-110)
[2020-02-12] MEDS: Rivaroxaban 20 MG Tablet PO (16:48)
[2020-02-12 17:00] VITALS: BMI 24.3
[2020-02-12 17:35] LABS: Bedside Glucose 222 mg/dL (70-110)
--- NOTE | 2020-02-12 18:55 | PCM.PN.BLA ---
Progress Note Afebrile VSS-blood pressure is well controlled Maintaining appropriate oxygen saturation on RA Oral intake is okay, needs to continually be reminded to increase her water intake Still incontinent of bowels and bladder Discussed with nursing - no problems that need addressed. Sleeping well. Reviewed the PT/OT/ST notes. Doing better with left side neglect and left visual inattention. Using external aids to assist in orientation. Still slow to answer. She is ambulating with a wheeled walker and max assist of 1 or 2. She is able to advance her left foot intermittently. Medication list reviewed. Blood sugars are well controlled She has no complaints today. She denies nausea/vomiting/shortness of breath/palpitations/abdominal pain/chest pain. Alert, smiling, pleasant, appropriate Lungs-clear to auscultation Heart-regular rate and rhythm Abdomen-soft, nontender, nondistended, bowel sounds present, incontinent of stool but having regular bowel movements No peripheral edema No calf tenderness Persistent left side weakness but is using the left hand sometimes now and able to advance the left foot sometimes without assistance while ambulating. Impressions 1. post stroke debility - continues to improve, albeit slowly. 2. depression - doing much better with good sleep, more participation with conversation, willingly participating in therapy,increased fluid intake and smiling a lot 3. DM II - well controlled 4. HTN - well controlled Continue with therapy No medication changes at this time We are going to allow her to visit but must be AF, asymp for COVID and wear a mask in the hospital Inpatient E&M: 02232 Subs Hosp L2
[2020-02-12 20:26] VITALS: BP 123/78; PULSE 77; RESP 16; TEMP 37; O2SAT 98
[2020-02-12 21:40] LABS: Bedside Glucose 134 mg/dL (70-110)
[2020-02-12 22:19] VITALS: BP 123/78; PULSE 77
[2020-02-12] MEDS: Estrogens,Conj. 1 Tube 1 DOSE VAGINAL (22:20)
[2020-02-12] MEDS: Atorvastatin Calcium 40 MG Tablet PO (22:20)
[2020-02-12] MEDS: QUEtiapine 25 MG Tablet PO (22:21)
[2020-02-13] MEDS: Capsaicin 0.025% 1 APPLIC Tube TOPICAL ×3 (06:21→20:57)
[2020-02-13] MEDS: Acetaminophen 500 MG Tablet 1000 MG PO ×3 (06:22→20:57)
[2020-02-13 06:36] LABS: Bedside Glucose 117 mg/dL (70-110)
[2020-02-13] MEDS: glipiZIDE 10 MG Tablet 15 MG PO (07:24)
[2020-02-13] MEDS: amLODIPine 2.5 MG Tablet PO (07:25)
[2020-02-13] MEDS: Aspirin 81 MG TAB.CHEW PO (07:25)
[2020-02-13 07:26] VITALS: PULSE 68
[2020-02-13] MEDS: Pantoprazole Sodium 40 MG Tablet PO (07:26)
[2020-02-13] MEDS: Sertraline 100 MG Tablet PO (07:26)
[2020-02-13] MEDS: Lisinopril 10 MG Tablet PO ×2 (07:26→20:57)
[2020-02-13] MEDS: Senna/Docusate Sodium 1 Tablet 2 TABLET PO ×2 (07:26→20:59)
[2020-02-13] MEDS: Metoprolol(XL)Succ 25 MG Tablet PO ×2 (07:26→20:58)
[2020-02-13] MEDS: Menthol/Lanolin/Calamine/Znox 113 GM Tube 1 APPLIC TOPICAL ×2 (07:27→20:59)
[2020-02-13 09:23] VITALS: BP 137/70; PULSE 59; RESP 16; TEMP 36.6; O2SAT 98
[2020-02-13 11:10] LABS: Bedside Glucose 145 mg/dL (70-110)
[2020-02-13 12:42] VITALS: BMI 24.3
[2020-02-13 13:50] VITALS: BP 124/71; PULSE 66; RESP 20; TEMP 36.6; O2SAT 97
--- NOTE | 2020-02-13 13:50 | NURSING ---
MAT Clark found patient lying on floor right in front of her recliner lying on left side. Full ROM. Patient alert x2 to person and place, per normal. Patient had PA attached while in chair and visible to staff but when patient was asked about it, she reported, I took that thing off my shoulder. Patient given instruct 1:1 on using call light. From left side patient assisted staff to roll onto back. Patient then after Rom established and no outward rotation of legs, stood x3 assist. Patient reported to staff that she had hit her head and head palpated and a small bump felt onto left side of head but in comparison to right side of head, same bump noted. PERRLA. Denies pain.
--- NOTE | 2020-02-13 14:05 | NURSING ---
Off floor to CT scan and xrays. Daughter aware, Joanne MCKEON Hris Specialist aware, Dr. Vidal aware. No change in patient's speech pattern or demeanor. Very pleasant. VS taken at the time of finding patient are as follows: BP 124/71- 97.9 O-66-20-97% RA.
--- NOTE | 2020-02-13 14:10 | CT_ITS ---
STUDY: CT BRAIN WITHOUT CONTRAST REASON FOR EXAM: Female, 74 years old. FALL. Recent stroke RADIATION DOSAGE (If Supplied By Facility): CTDIvol = ( 44.99 ) mGy, DLP = ( 762.36 ) mGycm TECHNIQUE: Transaxial CT imaging of the brain was performed without administration of intravenous contrast material. Individualized dose optimization techniques were used for this CT. COMPARISON: Comparison is made with prior examination dated January 16, 2020 FINDINGS: Normal soft tissue structures. Normal calvarium. There is mild cerebral atrophy with widening of the extra-axial spaces and ventricular dilatation. There are areas of decreased attenuation within the white matter tracts of the supratentorial brain, consistent with microvascular disease changes. Stable infarcts in the basal ganglion as well as the thalamus. Normal brainstem. There is mild cerebellar atrophy. Stable focal encephalomalacia in the lateral aspect of the left cerebellar hemisphere. There is no intracranial hemorrhage. There are no findings of an acute ischemic infarction. Normal visualized paranasal sinuses. CT/Brain/Head without Contrast IMPRESSION: Chronic involutional changes of the brain. Stable examination. Electronically Signed: Deion Alvarado, at 14:35 EDT , Service support ,
--- NOTE | 2020-02-13 14:15 | RAD_ITS ---
STUDY: X-RAY - PELVIS AND LEFT HIP REASON FOR EXAM: Female, 74 years old. PT FELL, LEFT HIP PAIN TECHNIQUE: 3 views of the pelvis and hip. COMPARISON: None. FINDINGS: There is a non-specific bowel gas pattern. Normal visualized soft tissue structures. Normal bilateral iliac wings, sacroiliac joints and visualized sacrum. Normal bilateral superior and inferior pubic rami. There are degenerative changes of the pubic symphysis with articular narrowing and sclerosis. Normal bilateral ischial tuberosities. Normal visualized femoral head. Normal acetabulum. Normal hip joint. RAD/HIP, UNI W/ Pelvis 2-3 Views IMPRESSION: No acute abnormality is seen. Electronically Signed: Deion Alvarado, at 14:59 EDT , Service support ,
[2020-02-13 14:25] VITALS: O2SAT 97
--- NOTE | 2020-02-13 14:28 | CPS ---
2L continuously running for night-time use; probable sleep apnea
[2020-02-13] MEDS: Rivaroxaban 20 MG Tablet PO (16:54)
[2020-02-13 16:56] LABS: Bedside Glucose 115 mg/dL (70-110)
--- NOTE | 2020-02-13 17:00 | NURSING ---
Daughter, Joanne project safety manager, and Dr. Vidal aware of xray reports.
--- NOTE | 2020-02-13 18:13 | PCM.PN.BLA ---
Progress Note Zena was found in her room by nursing lying on her left side. She had taken off her bed alarm and attempted to get back in bed by herself and fell. She stated that she had hit her head and complained of pain in the left hip. She was alert and appropriate. There were no acute mental status changes. She had no abrasions or lacerations. She denied headache. She was sent for a left hip x-ray and noncontrasted CT brain. There was no evidence of pelvic fracture or fracture of the left hip. There is articular narrowing of the symphysis pubis. The hip joint looks normal. CT brain showed no acute findings and specifically no intracranial hemorrhage. She is on Xarelto for AF. Impressions 1. fall due attempting to get to her bed without help. She had removed her bed alarm and did not call for help to get back to bed. Fortunately she did not sustain any significant injury. She will not be left in the chair in her room any longer unless someone is in the room. STROKE Vital Signs/Narrative: Vital Signs Pulse Ox 02/13/20 14:25 97 Inpatient E&M: 29906 Subs Hosp L1
[2020-02-13 19:23] VITALS: BP 128/67; PULSE 76; RESP 16; TEMP 36.7; O2SAT 97
[2020-02-13 20:58] VITALS: BP 128/67; PULSE 76
[2020-02-13] MEDS: QUEtiapine 25 MG Tablet PO (20:58)
[2020-02-13] MEDS: Atorvastatin Calcium 40 MG Tablet PO (20:59)
[2020-02-13 21:30] LABS: Bedside Glucose 179 mg/dL (70-110)
[2020-02-14] MEDS: Acetaminophen 500 MG Tablet 1000 MG PO ×3 (06:37→21:36)
[2020-02-14] MEDS: Capsaicin 0.025% 1 APPLIC Tube TOPICAL ×3 (06:37→21:37)
[2020-02-14] MEDS: glipiZIDE 10 MG Tablet 15 MG PO (06:38)
[2020-02-14 06:41] LABS: Bedside Glucose 129 mg/dL (70-110)
[2020-02-14 07:34] VITALS: BP 115/56; PULSE 58; RESP 18; TEMP 36.6; O2SAT 97
[2020-02-14] MEDS: Lisinopril 10 MG Tablet PO ×2 (07:54→21:36)
[2020-02-14 07:55] VITALS: BP 115/56; PULSE 58
[2020-02-14] MEDS: Metoprolol(XL)Succ 25 MG Tablet PO ×2 (07:55→21:37)
[2020-02-14] MEDS: Sertraline 100 MG Tablet PO (07:55)
[2020-02-14] MEDS: amLODIPine 2.5 MG Tablet PO (07:55)
[2020-02-14] MEDS: Senna/Docusate Sodium 1 Tablet 2 TABLET PO ×2 (07:56→21:37)
[2020-02-14] MEDS: Pantoprazole Sodium 40 MG Tablet PO (07:56)
[2020-02-14] MEDS: Aspirin 81 MG TAB.CHEW PO (07:56)
[2020-02-14] MEDS: Menthol/Lanolin/Calamine/Znox 113 GM Tube 1 APPLIC TOPICAL ×2 (08:04→21:38)
[2020-02-14 11:25] LABS: Bedside Glucose 195 mg/dL (70-110)
[2020-02-14 14:14] VITALS: BMI 24.3
[2020-02-14 16:32] VITALS: O2SAT 96
--- NOTE | 2020-02-14 16:32 | CPS ---
Oxygen billed for pt. because of PRN use at night time for probable sleep apnea
[2020-02-14] MEDS: Rivaroxaban 20 MG Tablet PO (16:39)
[2020-02-14 17:00] LABS: Bedside Glucose 209 mg/dL (70-110)
[2020-02-14 19:48] VITALS: BP 132/76; PULSE 79; RESP 16; TEMP 37.1; O2SAT 96
[2020-02-14 21:21] LABS: Bedside Glucose 131 mg/dL (70-110)
[2020-02-14 21:37] VITALS: PULSE 79
[2020-02-14] MEDS: Atorvastatin Calcium 40 MG Tablet PO (21:37)
[2020-02-14] MEDS: QUEtiapine 25 MG Tablet PO (21:39)
[2020-02-14 22:36] VITALS: O2SAT 96
[2020-02-14 22:46] VITALS: BMI 24.3
--- NOTE | 2020-02-15 00:30 | NURSING ---
Addendum entered by Deja Lewis 02/16/20 03:41: this event happen on 02/15 30 Original Note: Pt incont of urine. pt cleaned upa and repostion on left side
[2020-02-15 06:00] LABS: Bedside Glucose 111 mg/dL (70-110)
[2020-02-15] MEDS: Acetaminophen 500 MG Tablet 1000 MG PO ×3 (06:15→21:07)
[2020-02-15] MEDS: Capsaicin 0.025% 1 APPLIC Tube TOPICAL ×3 (06:15→21:06)
[2020-02-15] MEDS: glipiZIDE 10 MG Tablet 15 MG PO (06:15)
[2020-02-15 07:00] VITALS: BP 112/58; PULSE 60; RESP 18; TEMP 36.7; O2SAT 96
[2020-02-15 07:10] LABS: Hemoglobin 11.3 g/dL (12.0-15.0); Mean Corp Hgb Conc 31.4 g/dL (32-36); Mean Corpuscular Hgb 31.4 pg (27.0-32.0); Mean Platelet Vol. 10.1 fl (6.2-12.0); Platelet Count 308 K/mm3 (150-450); RBC Distribution Width CV 13.8 % (11.6-14.6); RBC Distribution Width SD 49.9 fl (35.1-43.9); White Blood Count 8.1 K/mm3 (4.4-11.0)
[2020-02-15 07:27] LABS: ALB/GLOB Ratio 0.9 RATIO (0.9-2.4); AST(SGOT) 15 U/L (15-37); Alanine Aminotransfer ALT/SGPT 29 U/L (13-56); Albumin, Serum 3.1 g/dL (3.2-5.0); Alkaline Phosphatase 47 U/L (45-117); Anion Gap 8 (5-15); BUN 20 mg/dL (7-18); BUN/Creat Ratio 21.9 RATIO (10-20); Calcium,Total 8.8 mg/dL (8.5-10.1); Chloride 105 mmol/L (98-107); Cholesterol 127 mg/dL (200); Creatinine, Serum 0.91 mg/dL (0.55-1.02); EST Glomerular Filtration Rate 64 mL/min (>60); Est Glom Filt Rate - Afr Amer 78 mL/min (>60); Estimated Creatinine Clearance 49.54 ml/min; Globulin 3.4 g/dL (2.2-4.2); Glucose 120 mg/dL (74-106); High Density Lipoprotein 38 mg/dL; Potassium 3.9 mmol/L (3.5-5.1); Protein, Total 6.5 g/dL (6.4-8.2); Sodium Level 139 mmol/L (136-145); Triglycerides 168 mg/dL; Very Low Density Lipoprotein 34 mg/dL (5-40)
[2020-02-15 09:27] VITALS: PULSE 60
[2020-02-15] MEDS: Pantoprazole Sodium 40 MG Tablet PO (09:27)
[2020-02-15] MEDS: Aspirin 81 MG TAB.CHEW PO (09:27)
[2020-02-15] MEDS: Metoprolol(XL)Succ 25 MG Tablet PO ×2 (09:27→21:07)
[2020-02-15] MEDS: amLODIPine 2.5 MG Tablet PO (09:27)
[2020-02-15] MEDS: Sertraline 100 MG Tablet PO (09:27)
[2020-02-15] MEDS: Lisinopril 10 MG Tablet PO ×2 (09:27→21:07)
[2020-02-15] MEDS: Menthol/Lanolin/Calamine/Znox 113 GM Tube 1 APPLIC TOPICAL ×2 (09:32→21:10)
[2020-02-15 11:50] LABS: Bedside Glucose 122 mg/dL (70-110)
--- NOTE | 2020-02-15 14:04 | PCM.PN.BLA ---
Progress Note Afebrile VSS Maintaining appropriate oxygen saturation on RA Oral intake is erratic Continues to be incontinent of urine and stool. Discussed with nursing - no problems that need addressed Reviewed the PT/OT/ST notes Medication list reviewed. Blood sugar record was reviewed and the blood sugars are well controlled. Rare blood sugar over 200 and no hypoglycemia. All lab was personally reviewed. White blood cell count of platelets are within normal limits. The hemoglobin is 11.3 which is stable. The MCV is increased at 100 and I suspect that this is due to reticulocytosis in response to anemia. CMP shows normal liver enzymes. Potassium is 3.9. BUN is 20 with a creatinine of 0.91 and this has decreased since admission due to increased fluid intake. The BUN is 20 today and this continues to improve as she increases her fluid intake. The triglycerides are 168 and the total cholesterol is 127. The LDL is 55 and the HDL is low at 38. Zena continues to periodically complain about Left knee pain but she got Tylenol and she said it helped. She denies cough/SOB/CP/palpitations/N/V/D. she is sleeping well at night. She tells me that she is ready to go home soon. Alert, appropriate, more talkative than she was at admission Lying nearly flat in bed with no shortness of breath. Lungs are clear to auscultation Heart-regular rate and rhythm, no gallop Abdomen-soft, nontender, nondistended, bowel sounds present, no guarding with palpation no peripheral edema No calf tenderness still with Left side weakness but, this is gradually improving Impressions 1. 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 Now on Xarelto. HGB is stable....it dropped a tad however she is better hydrated now than she was at admission 2. acute encephalopathy due to multiple CVA's 3. dehydration - improving and pt has increased her intake with encouragement from the entire staff to do so 4. depression - improved 5. AF - she has been regular every time I have seen her in the rehab unit - keep the K around 4 and the mag around 2 Continue the therapy And potassium chloride 10 mEq p.o. daily Check a Hemoccult stool Recheck H&H in 4 to 5 days. Inpatient E&M: [id number] Subs Hosp L2
[2020-02-15] MEDS: Rivaroxaban 20 MG Tablet PO (16:00)
[2020-02-15 16:09] VITALS: BMI 24.3
[2020-02-15 16:40] LABS: Bedside Glucose 99 mg/dL (70-110)
[2020-02-15 17:28] VITALS: O2SAT 97
--- NOTE | 2020-02-15 17:28 | CPS ---
Oxygen billed for pt.; 2L continuously running due to night-time use for probable sleep apnea
[2020-02-15 20:56] VITALS: BP 130/64; PULSE 71; RESP 18; TEMP 36.7; O2SAT 96
[2020-02-15] MEDS: Atorvastatin Calcium 40 MG Tablet PO (21:06)
[2020-02-15] MEDS: QUEtiapine 25 MG Tablet PO (21:06)
[2020-02-15 21:07] VITALS: BP 130/64; PULSE 71
[2020-02-15] MEDS: Senna/Docusate Sodium 1 Tablet 2 TABLET PO (21:07)
[2020-02-15 22:21] LABS: Bedside Glucose 214 mg/dL (70-110)
[2020-02-16] VITALS (7 sets, daily range): BP systolic 130–136; BP diastolic 68–73; PULSE 55–66; RESP 16–18; TEMP 36.6–36.9; O2SAT 97–100; BMI 24.3
[2020-02-16] MEDS: Capsaicin 0.025% 1 APPLIC Tube TOPICAL ×3 (06:00→20:22)
[2020-02-16] MEDS: Acetaminophen 500 MG Tablet 1000 MG PO ×3 (06:01→22:17)
[2020-02-16 06:46] LABS: Bedside Glucose 125 mg/dL (70-110)
[2020-02-16] MEDS: glipiZIDE 10 MG Tablet 15 MG PO (06:47)
[2020-02-16] MEDS: Pantoprazole Sodium 40 MG Tablet PO (07:48)
[2020-02-16] MEDS: Metoprolol(XL)Succ 25 MG Tablet PO ×2 (07:48→20:23)
[2020-02-16] MEDS: amLODIPine 2.5 MG Tablet PO (07:48)
[2020-02-16] MEDS: Aspirin 81 MG TAB.CHEW PO (07:48)
[2020-02-16] MEDS: Senna/Docusate Sodium 1 Tablet 2 TABLET PO (07:48)
[2020-02-16] MEDS: Lisinopril 10 MG Tablet PO ×2 (07:48→20:17)
[2020-02-16] MEDS: Sertraline 100 MG Tablet PO (07:50)
[2020-02-16] MEDS: Menthol/Lanolin/Calamine/Znox 113 GM Tube 1 APPLIC TOPICAL ×2 (08:04→20:23)
--- NOTE | 2020-02-16 10:07 | CASEMGMT ---
Social Work IDT met with patient and for Team Meeting. Discussed patient's progress in therapy. Pt is max x1 sit to stand, transfers, and walking with a FWW. Pt's improved 50% understanding foot placement, rhythm, going farther. Pt has improved focus, eye contact, insight, and attention to left arm. Pt is mod assist for bathing, seated set up for grooming with less cues, total assist for LE ADLs, tub transfer x2,. Pt performs better later in the A.M. Pt is standing taller with cues, and can stand at the wall rail for 4 mins. Pt is on a [facility] soft, thin liquid diet, small bites/sips, chews thoroughly before nett bites, using min cues and needing some initiation to swallowing. did state pt had some swallowing issues prior. Pt is having 60% accuracy with med management and problem solving, but 80% accuracy with cues. Mood has improved, conversing with others more. Overall, great progress from last week. Explained insurance NRD 02/18, and continued stay is not guaranteed. Will ReTeam next week. Will continue to follow. Gabriela Gomes, JOURNALISM TEACHER STRUCTURAL LAYOUT WORKER
--- NOTE | 2020-02-16 10:47 | PCM.PN.BLA ---
Progress Note Zena was seen on TEAM rounds today. Her Danny was present. Afebrile VSS Maintaining appropriate oxygen saturation on RA Oral intake is inconsistent. Discussed with nursing - no problems that need addressed Reviewed the PT/OT/ST notes Medication list reviewed. Blood sugar record was reviewed. Blood sugars are well controlled with rare blood sugar greater than 200. She has no complaints today. Zena is alert and she is making good eye contact today with the therapist who is speaking......this is a big improvement over last week when she was looking at the paper through rounds. She is smiling and in a good mood Lungs are CTA - diminished in the bases...not the best inspiratory effort H - RRR without ectopy Abd - soft, NT, ND, BS's present no edema no calf tenderness Strength in the LUE and the left leg is improving, still with mild Left facial droop Impressions 1. post multiple CVA's due to AF with emboli - improving 2. depression - improved. she is more talkative and engaging. she is making good eye contact today. She smiles a lot and has been participating willingly with therapy 3. DM II - controlled 4. HTN - controlled 5. Chronic anticoagulation for PAF 6. HGB has been slowly decreasing - will check a hemoccult stool Continue current medications and therapy All her 's questions were answered STROKE Vital Signs/Narrative: Vital Signs Temp Pulse Resp BP Pulse Ox 02/16/20 08:26 97.9 F 66 16 130/72 H 97 02/16/20 07:48 66 130/72 H Inpatient E&M: [id number] Subs Hosp L2
[2020-02-16 11:46] LABS: Bedside Glucose 263 mg/dL (70-110)
[2020-02-16] MEDS: Rivaroxaban 20 MG Tablet PO (16:18)
[2020-02-16 16:55] LABS: Bedside Glucose 141 mg/dL (70-110)
[2020-02-16] MEDS: Estrogens,Conj. 1 Tube 1 DOSE VAGINAL (20:23)
[2020-02-16] MEDS: Atorvastatin Calcium 40 MG Tablet PO (20:23)
[2020-02-16] MEDS: QUEtiapine 25 MG Tablet PO (20:23)
[2020-02-16 22:16] LABS: Bedside Glucose 169 mg/dL (70-110)
[2020-02-17] MEDS: Capsaicin 0.025% 1 APPLIC Tube TOPICAL ×3 (05:48→20:32)
[2020-02-17] MEDS: Acetaminophen 500 MG Tablet 1000 MG PO ×3 (05:48→21:59)
[2020-02-17 06:35] LABS: Bedside Glucose 148 mg/dL (70-110)
[2020-02-17] MEDS: glipiZIDE 10 MG Tablet 15 MG PO (06:59)
[2020-02-17 07:42] VITALS: BP 128/56; PULSE 60; RESP 16; TEMP 36.6; O2SAT 97
[2020-02-17] MEDS: amLODIPine 2.5 MG Tablet PO (08:44)
[2020-02-17] MEDS: Pantoprazole Sodium 40 MG Tablet PO (08:44)
[2020-02-17 08:45] VITALS: PULSE 60
[2020-02-17] MEDS: Metoprolol(XL)Succ 25 MG Tablet PO ×2 (08:45→20:31)
[2020-02-17] MEDS: Aspirin 81 MG TAB.CHEW PO (08:45)
[2020-02-17] MEDS: Lisinopril 10 MG Tablet PO ×2 (08:45→20:31)
[2020-02-17] MEDS: Sertraline 100 MG Tablet PO (08:45)
[2020-02-17] MEDS: Menthol/Lanolin/Calamine/Znox 113 GM Tube 1 APPLIC TOPICAL ×2 (08:47→20:31)
[2020-02-17 11:51] LABS: Bedside Glucose 140 mg/dL (70-110)
[2020-02-17 12:00] VITALS: O2SAT 97
[2020-02-17 16:33] VITALS: BMI 24.3
[2020-02-17] MEDS: Rivaroxaban 20 MG Tablet PO (17:38)
[2020-02-17 17:40] LABS: Bedside Glucose 126 mg/dL (70-110)
[2020-02-17 19:46] VITALS: BP 141/79; PULSE 72; RESP 18; TEMP 36.8; O2SAT 95
[2020-02-17 19:56] VITALS: BMI 24.3
[2020-02-17] MEDS: Atorvastatin Calcium 40 MG Tablet PO (20:29)
[2020-02-17 20:31] VITALS: PULSE 77
[2020-02-17] MEDS: QUEtiapine 25 MG Tablet PO (20:31)
[2020-02-17 21:50] LABS: Bedside Glucose 175 mg/dL (70-110)
[2020-02-18] MEDS: Capsaicin 0.025% 1 APPLIC Tube TOPICAL ×3 (05:23→20:10)
[2020-02-18] MEDS: Acetaminophen 500 MG Tablet 1000 MG PO ×3 (05:24→22:02)
[2020-02-18] MEDS: glipiZIDE 10 MG Tablet 15 MG PO (06:36)
[2020-02-18 07:16] LABS: Bedside Glucose 195 mg/dL (70-110)
[2020-02-18 08:37] VITALS: BP 140/66; PULSE 70; RESP 16; TEMP 36.7; O2SAT 97
[2020-02-18] MEDS: Menthol/Lanolin/Calamine/Znox 113 GM Tube 1 APPLIC TOPICAL ×2 (09:43→20:06)
[2020-02-18] MEDS: amLODIPine 2.5 MG Tablet PO (09:44)
[2020-02-18] MEDS: Pantoprazole Sodium 40 MG Tablet PO (09:44)
[2020-02-18] MEDS: Aspirin 81 MG TAB.CHEW PO (09:44)
[2020-02-18 09:45] VITALS: PULSE 70
[2020-02-18] MEDS: Sertraline 100 MG Tablet PO (09:45)
[2020-02-18] MEDS: Metoprolol(XL)Succ 25 MG Tablet PO ×2 (09:45→20:09)
[2020-02-18] MEDS: Lisinopril 10 MG Tablet PO ×2 (09:45→20:10)
[2020-02-18 10:40] VITALS: BMI 24.3
--- NOTE | 2020-02-18 10:43 | PCM.PN.BLA ---
Progress Note Afebrile since admission Blood pressure is well controlled Heart rate is within normal limits Maintaining appropriate oxygen saturation on room air while awake. On 2 L of oxygen at night due to an abnormal overnight trending pulse ox. Fluctuating oral intake but overall improved since admission Has lost approximately 2 pounds since admission. Continues to be incontinent of urine and stool. But sugar record was reviewed and blood sugars are adequately controlled with no hypoglycemia. Hemoccult stool was positive. The hemoglobin has drifted down from 13.3 at admission to 11.3 on 02/15/2020. She is on Xarelto. She is on pantoprazole 40 mg daily for GI prophylaxis. She was more difficult to arouse this AM. She has had increased difficulty with ambulation yesterday and today. She is not able to advance the R foot as well as she was doing last week. She denies cephalgia and also denies vertigo and lightheadedness. alert, oriented to person month and year Horizontal gaze is normal with no nystagmus no change in facial droop on the left. Speech is not slurred Able to follow simple commands RUE - no drift LUE - drift but did not hit her lap. Much better than at admission RLE - no drift LLE she has drift less postural stability today, leaning to the left BS is currently 221 Impressions 1. more ataxic today, sleepy but is appropriate when awake and she is able to follow commands. She had multiple strokes at admission due to AF and she is currently on Xarelto. Will get a non-contrasted CTB now to r/o any hemorrhagic transformation. It may just be she is more tired today 2. PAF - on Xarelto 3. Heme + stool. On Protonix 4. urine and fecal incontinence 5. HTN - controlled CTB now HH now and BMP straight cath for UA and urine culture neuro checks today if the CTB is unrevealing - if there is any progression in sx will get a stat MRI with and without STROKE Vital Signs/Narrative: Vital Signs Temp Pulse Resp BP Pulse Ox 02/18/20 09:45 70 02/18/20 08:37 98.0 F 70 16 140/66 H 97 Inpatient E&M: [id number] Subs Hosp L2
--- NOTE | 2020-02-18 11:19 | CT_ITS ---
STUDY: CT BRAIN WITHOUT CONTRAST REASON FOR EXAM: Female, 74 years old. PROGRESSIVE ATAXIA. Hx of CVA RADIATION DOSAGE (If Supplied By Facility): CTDIvol = ( 60.81 ) mGy, DLP = ( 1021.47 ) mGycm TECHNIQUE: Transaxial CT imaging of the brain was performed without administration of intravenous contrast material. Individualized dose optimization techniques were used for this CT. COMPARISON: 02/13/2020 FINDINGS: Normal soft tissue structures. Normal calvarium. There is moderate cerebral atrophy with widening of the extra-axial spaces and ventricular dilatation. There are areas of decreased attenuation within the white matter tracts of the supratentorial brain, consistent with microvascular disease changes. Normal basal ganglia and thalami. Normal brainstem. Normal cerebellum. There is no intracranial hemorrhage. There are no findings of an acute ischemic infarction. Air-fluid level in the right sphenoid sinus consistent with acute sinusitis. CT/Brain/Head without Contrast IMPRESSION: Chronic involutional changes of the brain. Acute right sphenoid sinusitis per Electronically Signed: Sonny Hill MD at 12:02 EDT Tel , Service support ,
[2020-02-18 11:30] LABS: Bedside Glucose 221 mg/dL (70-110)
[2020-02-18 12:49] LABS: Absolute Lymphocyte Count 2.26 X10^3/uL (0.83-4.51); Absolute Neutrophil Count 5.7 X10^3/uL (2.0-7.7); Basophil# 0.06 X10^3/uL; Basophil% 0.7 % (0-1); Eosinophil# 0.17 X10^3/uL; Eosinophils% 1.9 % (0-5); Hematocrit 39.5 % (37-47); Hemoglobin 12.6 g/dL (12.0-15.0); Lymphocyte # 2.26 X10^3/ul (4.0); Lymphocyte % 25.9 % (19-41); Mean Corp Hgb Conc 31.9 g/dL (32-36); Mean Corpuscular Hgb 31.6 pg (27.0-32.0); Mean Platelet Vol. 10.3 fl (6.2-12.0); Monocyte% 5.7 % (0-10); NRBC Flagged by Analyzer 0 % (0-5); Neutrophil # 5.71 X10^3/uL (2.7-7.7); Neutrophil % 65.3 % (47-70); Platelet Count 383 K/mm3 (150-450); RBC Distribution Width CV 13.5 % (11.6-14.6); RBC Distribution Width SD 49.8 fl (35.1-43.9); Red Blood Count 3.99 M/mm3 (4.2-5.4); White Blood Count 8.7 K/mm3 (4.4-11.0)
[2020-02-18 13:14] LABS: Anion Gap 9 (5-15); BUN 24 mg/dL (7-18); BUN/Creat Ratio 25.4 RATIO (10-20); Calcium,Total 9.1 mg/dL (8.5-10.1); Chloride 103 mmol/L (98-107); Creatinine, Serum 0.94 mg/dL (0.55-1.02); EST Glomerular Filtration Rate 62 mL/min (>60); Est Glom Filt Rate - Afr Amer 75 mL/min (>60); Estimated Creatinine Clearance 47.96 ml/min; Glucose 230 mg/dL (74-106); Potassium 4.3 mmol/L (3.5-5.1); Sodium Level 137 mmol/L (136-145)
[2020-02-18 14:42] LABS: Mucous, Urine 0 SEEN /hpf (<or=2+); Red Blood Cells-Urine 0 SEEN /hpf (0-5); Squamous Epithelial Cells - UA 0 SEEN /hpf (5-10)
[2020-02-18 14:46] LABS: Color, Urine Yellow (Yellow); Glucose, Dipstick Normal (Normal); Ketone-Dipstick Negative (Negative); Leukocyte Esterase-Dipstick 25 /ul (Negative); Nitrite-Dipstick Positive (Negative); Occult Blood-Urine Negative /ul (Negative); Protein-Dipstick Negative (Negative); Specific Gravity, Urine 1.015 (1.002-1.030); Urine Bilirubin Dipstick Negative (Negative); Urine Clarity Sl. Cloudy (Clear); Urine Urobilinogen Normal (Normal)
[2020-02-18 14:51] LABS: Bacteria 3+ /hpf (None Seen)
[2020-02-18 14:52] LABS: White Blood Cells 0-5 SEEN /hpf (0-5)
[2020-02-18] MEDS: Rivaroxaban 20 MG Tablet PO (16:33)
[2020-02-18 17:00] LABS: Bedside Glucose 157 mg/dL (70-110)
[2020-02-18 19:38] VITALS: BP 123/78; PULSE 66; RESP 17; TEMP 37; O2SAT 98
[2020-02-18 20:04] VITALS: BMI 24.3
[2020-02-18] MEDS: Atorvastatin Calcium 40 MG Tablet PO (20:07)
[2020-02-18] MEDS: QUEtiapine 25 MG Tablet PO (20:08)
[2020-02-18 20:09] VITALS: PULSE 69
[2020-02-18 22:00] VITALS: O2SAT 97
[2020-02-18 22:05] LABS: Bedside Glucose 170 mg/dL (70-110)
[2020-02-19] MEDS: Capsaicin 0.025% 1 APPLIC Tube TOPICAL ×3 (06:05→20:40)
[2020-02-19] MEDS: Acetaminophen 500 MG Tablet 1000 MG PO ×3 (06:05→20:42)
[2020-02-19] MEDS: glipiZIDE 10 MG Tablet 15 MG PO (06:06)
--- NOTE | 2020-02-19 06:57 | NURSING ---
DOORSHAKER alerted to room by PA going off. DOORSHAKER found pt trying to crawl out of bed. DOORSHAKER got pt into wheelchair and is 1:1 with pt in multi purpose room.
[2020-02-19 07:05] LABS: Bedside Glucose 142 mg/dL (70-110)
[2020-02-19 07:39] VITALS: BP 104/56; PULSE 63; RESP 16; TEMP 37; O2SAT 97
[2020-02-19 07:49] VITALS: PULSE 63
[2020-02-19] MEDS: Aspirin 81 MG TAB.CHEW PO (07:49)
[2020-02-19] MEDS: Pantoprazole Sodium 40 MG Tablet PO (07:49)
[2020-02-19] MEDS: amLODIPine 2.5 MG Tablet PO (07:49)
[2020-02-19] MEDS: Metoprolol(XL)Succ 25 MG Tablet PO ×2 (07:49→20:42)
[2020-02-19] MEDS: Sertraline 100 MG Tablet PO (07:50)
[2020-02-19] MEDS: Lisinopril 10 MG Tablet PO ×2 (07:50→20:42)
[2020-02-19] MEDS: Menthol/Lanolin/Calamine/Znox 113 GM Tube 1 APPLIC TOPICAL ×2 (08:20→20:43)
[2020-02-19 09:39] VITALS: BMI 24.3
[2020-02-19 11:51] LABS: Bedside Glucose 312 mg/dL (70-110)
--- NOTE | 2020-02-19 12:06 | PCM.PN.BLA ---
Progress Note Afebrile Vital signs stable-blood pressures well controlled Maintaining appropriate oxygen saturation on room air Poor oral intake on 04/19/2020....this may be why the BP is lower than usual today BS record was reviewed. FBS was 142 today and increased to 312 prior to lunch. Generally it is the lunchtime sugar that is over 200. She had been eating candy her brought this week but tells me that she did not eat any today. CT brain yesterday showed chronic involutional changes of the brain and acute right sphenoid sinusitis. There was an air-fluid level. All lab was personally reviewed. White blood cell count yesterday was 8.7 with 65% neutrophils. Hemoglobin and platelets are within normal limits. MCV and MCH are normal. The BMP shows normal electrolytes with an increased BUN at 24 and a creatinine of 0.94 with a BUN/creatinine ratio of 25.4. UA had positive nitrites and 25 leukocyte Estrace. There were 0-5 white blood cells and 3+ bacteria and this was a catheterized specimen. Alert when I am talking with her today but when talking with the speech therapist she was drowsy initially. She is appropriate with me. Lungs - CTA abd- soft NT,ND, denies dysuria but she is continually incontinent of stool and urine and in depends which increase risk for UTI. May need to consider prophylaxis after the acute infection has been treated. No suprapubic pain with palpation No pain with percussion over the sinuses, denies rhinorrhea and LLAMAS, no edema no rashes Impressions 1. decrease in ability to ambulate this week and increased fatigue with increased Blood sugars - more likely than not due to UTI AND acute sphenoid sinusitis 2. PAF - on Xarelto 3. Heme + stool. On Protonix. HGB is stable 4. urine and fecal incontinence 5. HTN - controlled 6. UTI - culture is pending 7. acute R sphenoid sinusitis Start Augmentin 500 mg p.o. 3 times daily x 7 days to treat acute sinusitis and UTI. Await the results of the cultures. Heme + stool but, the HGB is stable....will continue Protonix 40 mg daily Continue Xarelto 20 mg daily Add sliding scale insulin coverage until the infection has improved and blood sugars have decreased. the last UTI was due to E. Coli and it was pansensitive Inpatient E&M: [id number] Subs Hosp L2
[2020-02-19] MEDS: Amox/Clavulanate 875 MG Tablet PO ×2 (13:52→20:44)
[2020-02-19] MEDS: Rivaroxaban 20 MG Tablet PO (16:34)
[2020-02-19 16:46] LABS: Bedside Glucose 137 mg/dL (70-110)
[2020-02-19 19:21] VITALS: BP 144/64; PULSE 66; RESP 16; TEMP 36.7; O2SAT 96
[2020-02-19 20:42] VITALS: BP 144/64; PULSE 66
[2020-02-19] MEDS: QUEtiapine 25 MG Tablet PO (20:42)
[2020-02-19] MEDS: Senna/Docusate Sodium 1 Tablet 2 TABLET PO (20:43)
[2020-02-19] MEDS: Atorvastatin Calcium 40 MG Tablet PO (20:43)
[2020-02-19] MEDS: Estrogens,Conj. 1 Tube 1 DOSE VAGINAL (20:43)
[2020-02-19 21:21] LABS: Bedside Glucose 163 mg/dL (70-110)
[2020-02-20] MEDS: Acetaminophen 500 MG Tablet 1000 MG PO ×3 (05:16→21:01)
[2020-02-20] MEDS: Capsaicin 0.025% 1 APPLIC Tube TOPICAL ×3 (05:17→21:19)
[2020-02-20] MEDS: glipiZIDE 10 MG Tablet 15 MG PO (06:19)
[2020-02-20 06:56] LABS: Bedside Glucose 156 mg/dL (70-110)
[2020-02-20 07:10] VITALS: O2SAT 99
[2020-02-20] MEDS: Amox/Clavulanate 875 MG Tablet PO ×2 (07:34→16:34)
[2020-02-20] MEDS: Insulin Lispro 100 UNIT/ML INSULN.PEN SC ×3 (07:34→16:34)
[2020-02-20] MEDS: Aspirin 81 MG TAB.CHEW PO (07:34)
[2020-02-20] MEDS: amLODIPine 2.5 MG Tablet PO (07:35)
[2020-02-20 07:36] VITALS: BP 124/58; PULSE 66; RESP 16; TEMP 37.1; O2SAT 99
[2020-02-20] MEDS: Senna/Docusate Sodium 1 Tablet 2 TABLET PO ×2 (07:36→21:00)
[2020-02-20] MEDS: Metoprolol(XL)Succ 25 MG Tablet PO ×2 (07:36→21:00)
[2020-02-20] MEDS: Lisinopril 10 MG Tablet PO ×2 (07:36→21:01)
[2020-02-20] MEDS: Pantoprazole Sodium 40 MG Tablet PO (07:36)
[2020-02-20] MEDS: Sertraline 100 MG Tablet PO (07:37)
[2020-02-20] MEDS: Menthol/Lanolin/Calamine/Znox 113 GM Tube 1 APPLIC TOPICAL ×2 (07:39→21:01)
[2020-02-20 11:25] LABS: Bedside Glucose 199 mg/dL (70-110)
[2020-02-20 11:43] VITALS: BMI 24.3
[2020-02-20] MEDS: Vancomycin IV 1,000 MG/200 ML BAG 200 MG IV (15:36)
--- NOTE | 2020-02-20 16:02 | PCM.RX.CS ---
Consult Pharmacy has been consulted to manage selected antiobiotic: Vancomycin Type of Consult: New start Suspected Infection: Pneumonia Prior Doses of Antibiotics Received/Current Regimen: 1 Labs: Sodium 137 mmol/L (136-145) 02/18/20 12:30 Potassium 4.3 mmol/L (3.5-5.1) 02/18/20 12:30 Chloride 103 mmol/L (98-107) 02/18/20 12:30 Carbon Dioxide 25.0 mmol/L (21.0-32.0) 02/18/20 12:30 Anion Gap 9 (5-15) 02/18/20 12:30 BUN 24 mg/dL (7-18) H 02/18/20 12:30 Creatinine 0.94 mg/dL (0.55-1.02) 02/18/20 12:30 Est GFR (MDRD) Af Amer 75 mL/min (>60) 02/18/20 12:30 Est GFR (MDRD) Non-Af 62 mL/min (>60) 02/18/20 12:30 BUN/Creatinine Ratio 25.4 RATIO (10-20) H 02/18/20 12:30 Glucose 230 mg/dL (74-106) H 02/18/20 12:30 VANCO TROUGH ORDERED PRIOR TO 4TH DOSE Microbiology: Microbiology 02/18/20 14:20 Aspirate - Nose Gram Stain - Final 02/18/20 14:20 Aspirate - Nose Nasopharyngeal Culture - Preliminary Staphylococcus aureus 02/18/20 14:20 Urine, Catheterized Urine Culture - Final Presumptive E. coli 02/16/20 20:10 Stool Stool Occult Blood (JAZMÍN) - Final Occult Blood Positive 02/02/20 10:11 Urine, Catheterized Urine Culture - Final Culture exhibits no growth. 01/16/20 09:25 Urine, Catheterized Urine Culture - Final Presumptive E. coli Weight used for dosin kg Estimated Creatinine Clearance: 48 Goal Trough: 15-20 mcg/mL Pharmacy Plan for Drug Dosing: Pharmacy Service will continue to monitor and adjust dosing as required.
[2020-02-20] MEDS: Rivaroxaban 20 MG Tablet PO (16:34)
[2020-02-20 16:35] LABS: Bedside Glucose 194 mg/dL (70-110)
[2020-02-20 16:59] LABS: M R Staph aureus DNA By PCR Negative (Negative); Probe Check PASS; Specimen Processing Control PASS
[2020-02-20 19:19] VITALS: BP 125/79; PULSE 71; RESP 16; TEMP 36.9; O2SAT 94
[2020-02-20 21:00] VITALS: BP 125/79; PULSE 71
[2020-02-20] MEDS: Atorvastatin Calcium 40 MG Tablet PO (21:00)
[2020-02-20] MEDS: QUEtiapine 25 MG Tablet PO (21:00)
[2020-02-20 21:41] LABS: Bedside Glucose 165 mg/dL (70-110)
[2020-02-21] MEDS: Vancomycin IV 500 MG/100 ML BAG 100 MG IV ×2 (03:34→15:04)
[2020-02-21] MEDS: Capsaicin 0.025% 1 APPLIC Tube TOPICAL ×3 (06:12→22:31)
[2020-02-21] MEDS: glipiZIDE 10 MG Tablet 15 MG PO (06:12)
[2020-02-21] MEDS: Acetaminophen 500 MG Tablet 1000 MG PO ×3 (06:13→22:32)
[2020-02-21 06:20] LABS: Bedside Glucose 133 mg/dL (70-110)
[2020-02-21] MEDS: Lisinopril 10 MG Tablet PO ×2 (07:46→22:31)
[2020-02-21] MEDS: Aspirin 81 MG TAB.CHEW PO (07:46)
[2020-02-21 07:47] VITALS: PULSE 72
[2020-02-21] MEDS: Metoprolol(XL)Succ 25 MG Tablet PO ×2 (07:47→22:32)
[2020-02-21] MEDS: Pantoprazole Sodium 40 MG Tablet PO (07:47)
[2020-02-21] MEDS: amLODIPine 2.5 MG Tablet PO (07:48)
[2020-02-21] MEDS: Menthol/Lanolin/Calamine/Znox 113 GM Tube 1 APPLIC TOPICAL ×2 (07:48→22:32)
[2020-02-21] MEDS: Amox/Clavulanate 875 MG Tablet PO ×2 (07:49→16:42)
[2020-02-21] MEDS: Sertraline 100 MG Tablet PO (07:51)
[2020-02-21 09:50] VITALS: BP 133/74; PULSE 61; RESP 16; TEMP 36.7; O2SAT 99
[2020-02-21 11:10] VITALS: BMI 24.3
[2020-02-21 11:46] LABS: Bedside Glucose 92 mg/dL (70-110)
[2020-02-21] MEDS: Rivaroxaban 20 MG Tablet PO (16:42)
[2020-02-21] MEDS: Insulin Lispro 100 UNIT/ML INSULN.PEN SC (16:44)
[2020-02-21 17:31] LABS: Bedside Glucose 198 mg/dL (70-110)
[2020-02-21 19:25] VITALS: BP 134/74; PULSE 75; RESP 16; TEMP 36.3; O2SAT 96
[2020-02-21 21:50] LABS: Bedside Glucose 130 mg/dL (70-110)
[2020-02-21 22:32] VITALS: BP 134/74; PULSE 75
[2020-02-21] MEDS: Atorvastatin Calcium 40 MG Tablet PO (22:32)
[2020-02-21] MEDS: QUEtiapine 25 MG Tablet PO (22:32)
[2020-02-22] MEDS: 0.9% Saline Lock 10 ML Syringe IV ×2 (03:27→04:41)
[2020-02-22] MEDS: Vancomycin IV 500 MG/100 ML BAG 100 MG IV (03:29)
[2020-02-22 04:25] LABS: Vancomycin, Trough Level 9.3 ug/mL (5.0-15.0)
--- NOTE | 2020-02-22 04:38 | PCM.RX.CS ---
Consult Pharmacy has been consulted to manage selected antiobiotic: Vancomycin Type of Consult: Follow-up Suspected Infection: Other Prior Doses of Antibiotics Received/Current Regimen: Medications Vancomycin HCl 750 mg/ Sodium (Chloride) 265 mls @ 250 mls/hr IV Q12H TOMI Discontinued Medications Vancomycin HCl () 500 mg in 100 mls @ 100 mls/hr IV Q12H TOMI Stop: 02/22/20 04:30 Last Admin: 02/22/20 03:29 Dose: 100 mls/hr Labs: Sodium 137 mmol/L (136-145) 02/18/20 12:30 Potassium 4.3 mmol/L (3.5-5.1) 02/18/20 12:30 Chloride 103 mmol/L (98-107) 02/18/20 12:30 Carbon Dioxide 25.0 mmol/L (21.0-32.0) 02/18/20 12:30 Anion Gap 9 (5-15) 02/18/20 12:30 BUN 24 mg/dL (7-18) H 02/18/20 12:30 Creatinine 0.94 mg/dL (0.55-1.02) 02/18/20 12:30 Est GFR (MDRD) Af Amer 75 mL/min (>60) 02/18/20 12:30 Est GFR (MDRD) Non-Af 62 mL/min (>60) 02/18/20 12:30 BUN/Creatinine Ratio 25.4 RATIO (10-20) H 02/18/20 12:30 Glucose 230 mg/dL (74-106) H 02/18/20 12:30 Vancomycin Trough 9.3 ug/mL (5.0-15.0) 02/22/20 03:27 Microbiology: Microbiology 02/18/20 14:20 Aspirate - Nose Gram Stain - Final 02/18/20 14:20 Aspirate - Nose Nasopharyngeal Culture - Final Staphylococcus aureus 02/18/20 14:20 Urine, Catheterized Urine Culture - Final Presumptive E. coli 02/16/20 20:10 Stool Stool Occult Blood (JAZMÍN) - Final Occult Blood Positive 02/02/20 10:11 Urine, Catheterized Urine Culture - Final Culture exhibits no growth. 01/16/20 09:25 Urine, Catheterized Urine Culture - Final Presumptive E. coli Weight used for dosin.2 kg Estimated Creatinine Clearance: 48 Goal Trough: 15-20 mcg/mL Pharmacy Plan for Drug Dosing: Vancomycin trough level of 9.3 was below target range of 15-20. Dose was increased to 750mg q12h. Another trough will be taken prior to 4th dose of new regimen. Pharmacy Service will continue to monitor and adjust dosing as required. Follow-Up Labs: Trough Vancomycin Labs to be done on [date and time ordered]: 02/24/20 @0300
[2020-02-22] MEDS: glipiZIDE 10 MG Tablet 15 MG PO (06:29)
[2020-02-22] MEDS: Capsaicin 0.025% 1 APPLIC Tube TOPICAL ×3 (06:30→20:41)
[2020-02-22] MEDS: Acetaminophen 500 MG Tablet 1000 MG PO ×3 (06:31→20:42)
[2020-02-22 07:00] VITALS: BP 107/61; PULSE 63; RESP 12; TEMP 36.8; O2SAT 95
[2020-02-22 07:05] LABS: Bedside Glucose 128 mg/dL (70-110)
[2020-02-22] MEDS: Sertraline 100 MG Tablet PO (07:42)
[2020-02-22 07:43] VITALS: PULSE 63
[2020-02-22] MEDS: Aspirin 81 MG TAB.CHEW PO (07:43)
[2020-02-22] MEDS: Pantoprazole Sodium 40 MG Tablet PO (07:43)
[2020-02-22] MEDS: Amox/Clavulanate 875 MG Tablet PO ×2 (07:43→16:30)
[2020-02-22] MEDS: Metoprolol(XL)Succ 25 MG Tablet PO ×2 (07:43→20:43)
[2020-02-22] MEDS: Lisinopril 10 MG Tablet PO ×2 (07:43→20:42)
[2020-02-22] MEDS: amLODIPine 2.5 MG Tablet PO (07:44)
[2020-02-22] MEDS: Menthol/Lanolin/Calamine/Znox 113 GM Tube 1 APPLIC TOPICAL ×2 (07:45→20:43)
[2020-02-22 11:25] LABS: Bedside Glucose 233 mg/dL (70-110)
[2020-02-22] MEDS: Insulin Lispro 100 UNIT/ML INSULN.PEN SC (12:20)
[2020-02-22 13:25] VITALS: BMI 24.3
[2020-02-22] MEDS: Rivaroxaban 20 MG Tablet PO (16:30)
[2020-02-22 16:36] LABS: Bedside Glucose 134 mg/dL (70-110)
[2020-02-22 19:46] VITALS: BP 152/70; PULSE 68; RESP 16; TEMP 36.8; O2SAT 96
[2020-02-22 20:43] VITALS: BP 152/70; PULSE 68
[2020-02-22] MEDS: Atorvastatin Calcium 40 MG Tablet PO (20:43)
[2020-02-22] MEDS: QUEtiapine 25 MG Tablet PO (20:43)
[2020-02-22 21:55] LABS: Bedside Glucose 165 mg/dL (70-110)
[2020-02-23] MEDS: 0.9% Saline Lock 10 ML Syringe IV ×2 (03:37→05:11)
[2020-02-23] MEDS: Capsaicin 0.025% 1 APPLIC Tube TOPICAL ×3 (05:11→20:04)
[2020-02-23] MEDS: glipiZIDE 10 MG Tablet 15 MG PO (06:19)
[2020-02-23] MEDS: Acetaminophen 500 MG Tablet 1000 MG PO ×3 (06:20→22:32)
[2020-02-23 07:00] LABS: Bedside Glucose 121 mg/dL (70-110)
[2020-02-23 07:44] VITALS: BP 102/61; PULSE 66; RESP 16; TEMP 36.6; O2SAT 98
[2020-02-23] MEDS: Amox/Clavulanate 875 MG Tablet PO ×2 (07:47→16:13)
[2020-02-23] MEDS: Pantoprazole Sodium 40 MG Tablet PO (07:47)
[2020-02-23] MEDS: Senna/Docusate Sodium 1 Tablet 2 TABLET PO (07:47)
[2020-02-23] MEDS: amLODIPine 2.5 MG Tablet PO (07:47)
[2020-02-23] MEDS: Aspirin 81 MG TAB.CHEW PO (07:47)
[2020-02-23 07:48] VITALS: BP 102/61; PULSE 66
[2020-02-23] MEDS: Sertraline 100 MG Tablet PO (07:48)
[2020-02-23] MEDS: Metoprolol(XL)Succ 25 MG Tablet PO ×2 (07:48→20:02)
--- NOTE | 2020-02-23 08:43 | PCM.PN.BLA ---
Progress Note Vancomycin day #4, Augmentin day #5 Zena was seen on TEAM rounds today. Her dtr Mildred participated by phone. Afebrile since admission VSS Maintaining appropriate oxygen saturation on RA Oral intake is very erratic Continues to be incontinent of both stool and urine Last bowel movement 02/22/2020 Discussed with nursing - no problems that need addressed Reviewed the PT/OT/ST notes Medication list reviewed. Blood sugar record was reviewed. Rare blood sugar over 200. All lab was personally reviewed. The urine culture is positive for a pansensitive E. coli. The nasopharyngeal culture is positive for methicillin sensitive staph aureus. Zena has no complaints today. she slept well last night. She has no N/V/abdominal pain. She denies CP, SOB, palpitations much more alert today. Has been sitting in the WC sndf is maintaining and upright posture. She is paying attention at rounds and responded to her dtr on the phone. Alert, no apparent distress, making good eye contact today, more talkative Lungs-diminished but clear to auscultation Heart-regular rate and rhythm, no gallop Abdomen-soft, nontender, nondistended, bowel sounds present No peripheral edema, no calf tenderness No rashes and no skin breakdown Impressions 1. Debility due to multiple strokes presumed to be due to AF. Now on Xarelto 2. UTI due to E. Coli and R sphenoid sinusitis with an air fluid level. 3. Heme + stool - on Protonix, HGB is stable 4. DM II - well controlled DC the Vanco and continue the Augmentin for 7 days STROKE Vital Signs/Narrative: Vital Signs Temp Pulse Resp BP Pulse Ox 02/23/20 07:48 66 102/61 02/23/20 07:44 98 F 66 16 102/61 98 Inpatient E&M: [id number] Subs Hosp L2
[2020-02-23] MEDS: Lisinopril 10 MG Tablet PO ×2 (09:00→20:03)
[2020-02-23] MEDS: Menthol/Lanolin/Calamine/Znox 113 GM Tube 1 APPLIC TOPICAL ×2 (09:40→20:06)
[2020-02-23 11:10] VITALS: BMI 24.3
[2020-02-23 12:00] LABS: Bedside Glucose 171 mg/dL (70-110)
[2020-02-23] MEDS: Insulin Lispro 100 UNIT/ML INSULN.PEN SC ×2 (12:07→16:16)
--- NOTE | 2020-02-23 12:54 | CASEMGMT ---
Team meeting held today with patient present and daughter Chen on conference call. Pt is currently receiving PT/OT/ST. Pt had medical issues over the last week and is now showing improvement after treatment. Pt participation and alertness in therapy correlates with how pt is feeling medically. Pt currently requiring Max A to ambulate 10 ft with WW and is Max A for transfers. Pt is able to use left arm more and pharmaceutical laboratory technician strength is improving. Pt is max to total assist for upper body dressing and Max Ax2 for toileting and lower body dressing. Pt ability to scan with vision is improving and continues to have some attention deficits. Pt is currently tolerating mechanical soft diet. Pt will continue with treatment plan at this time with intentions to reteam next week. Next insurance review is on 02/25 and pt and dgt made aware that continued stay is not guaranteed. SW to continue to follow for d/c planning and emotional support. WILLIAM Red
[2020-02-23] MEDS: Rivaroxaban 20 MG Tablet PO (16:13)
[2020-02-23 16:51] LABS: Bedside Glucose 154 mg/dL (70-110)
[2020-02-23 19:22] VITALS: BP 134/67; PULSE 71; RESP 16; TEMP 36.9; O2SAT 99
[2020-02-23 19:34] VITALS: BMI 24.3
[2020-02-23 20:02] VITALS: PULSE 74
[2020-02-23] MEDS: QUEtiapine 25 MG Tablet PO (20:02)
[2020-02-23] MEDS: Estrogens,Conj. 1 Tube 1 DOSE VAGINAL (20:05)
[2020-02-23] MEDS: Atorvastatin Calcium 40 MG Tablet PO (20:06)
[2020-02-23 21:16] LABS: Bedside Glucose 183 mg/dL (70-110)
[2020-02-24] MEDS: Capsaicin 0.025% 1 APPLIC Tube TOPICAL ×3 (06:08→21:32)
[2020-02-24] MEDS: Acetaminophen 500 MG Tablet 1000 MG PO ×3 (06:08→21:32)
[2020-02-24] MEDS: glipiZIDE 10 MG Tablet 15 MG PO (06:08)
[2020-02-24 07:00] LABS: Bedside Glucose 139 mg/dL (70-110)
[2020-02-24] MEDS: Lisinopril 10 MG Tablet PO ×2 (07:39→21:32)
[2020-02-24] MEDS: Sertraline 100 MG Tablet PO (07:39)
[2020-02-24 07:40] VITALS: BP 115/64; PULSE 63
[2020-02-24] MEDS: Aspirin 81 MG TAB.CHEW PO ×2 (07:40)
[2020-02-24] MEDS: Pantoprazole Sodium 40 MG Tablet PO (07:40)
[2020-02-24] MEDS: Senna/Docusate Sodium 1 Tablet 2 TABLET PO ×2 (07:40→21:33)
[2020-02-24] MEDS: Metoprolol(XL)Succ 25 MG Tablet PO ×2 (07:40→21:33)
[2020-02-24] MEDS: amLODIPine 2.5 MG Tablet PO (07:41)
[2020-02-24] MEDS: Amox/Clavulanate 875 MG Tablet PO ×2 (07:41→16:43)
[2020-02-24] MEDS: Menthol/Lanolin/Calamine/Znox 113 GM Tube 1 APPLIC TOPICAL ×2 (07:50→21:28)
[2020-02-24 09:23] VITALS: BP 115/64; PULSE 63; RESP 16; TEMP 37; O2SAT 98
[2020-02-24 10:36] VITALS: BMI 24.3
[2020-02-24 12:05] LABS: Bedside Glucose 111 mg/dL (70-110)
[2020-02-24] MEDS: Rivaroxaban 20 MG Tablet PO (16:44)
[2020-02-24 16:51] LABS: Bedside Glucose 134 mg/dL (70-110)
[2020-02-24 19:48] VITALS: BP 134/65; PULSE 63; RESP 16; TEMP 36.7; O2SAT 99
[2020-02-24 21:20] VITALS: PULSE 63; RESP 16; O2SAT 99; BMI 24.3
[2020-02-24 21:25] LABS: Bedside Glucose 164 mg/dL (70-110)
[2020-02-24 21:33] VITALS: BP 134/65; PULSE 63
[2020-02-24] MEDS: Atorvastatin Calcium 40 MG Tablet PO (21:33)
[2020-02-24] MEDS: QUEtiapine 25 MG Tablet PO (21:33)
--- NOTE | 2020-02-25 03:43 | NURSING ---
Reviewed and agree with HOSPITAL FOOD SERVICE WORKER documentation and charting.
[2020-02-25] MEDS: Capsaicin 0.025% 1 APPLIC Tube TOPICAL ×3 (06:24→20:52)
[2020-02-25] MEDS: glipiZIDE 10 MG Tablet 15 MG PO (06:25)
[2020-02-25] MEDS: Acetaminophen 500 MG Tablet 1000 MG PO ×3 (06:25→20:52)
[2020-02-25 07:01] LABS: Bedside Glucose 129 mg/dL (70-110)
[2020-02-25 07:26] VITALS: BP 111/53; PULSE 64; RESP 16; TEMP 36.6; O2SAT 100
[2020-02-25] MEDS: amLODIPine 2.5 MG Tablet PO (07:38)
[2020-02-25] MEDS: Pantoprazole Sodium 40 MG Tablet PO (07:38)
[2020-02-25] MEDS: Sertraline 100 MG Tablet PO (07:38)
[2020-02-25] MEDS: Lisinopril 10 MG Tablet PO ×2 (07:38→20:52)
[2020-02-25 07:39] VITALS: BP 111/53; PULSE 64
[2020-02-25] MEDS: Amox/Clavulanate 875 MG Tablet PO ×2 (07:39→16:39)
[2020-02-25] MEDS: Metoprolol(XL)Succ 25 MG Tablet PO ×2 (07:39→20:52)
[2020-02-25] MEDS: Menthol/Lanolin/Calamine/Znox 113 GM Tube 1 APPLIC TOPICAL ×2 (07:50→20:51)
--- NOTE | 2020-02-25 07:59 | PCM.PN.BLA ---
Progress Note Day #7 Augmentin - will DC after the last dose today Afebrile VSS-blood pressure is well controlled and the patient denies any lightheadedness. Maintaining appropriate oxygen saturation on RA Oral intake is improving now that the urinary tract infection and sinusitis has been treated. She always eats well but does not always take enough fluid. Weight is stable Discussed with nursing - no problems that need addressed Reviewed the PT/OT/ST notes - performance in therapy is somewhat better this week since the UTI and sinusitis have been treated Medication list reviewed. Blood sugar record was reviewed and the blood sugars are very well controlled and all under 200 with no hypoglycemia. Alert L-CTA HRRR abd- soft NT non edema no calf tenderness Impressions 1. UTI - today is day 7 of antibiotics and will DC after the last dose today 2. DM II 3. debility due to multiple strokes 4. R sphenoid sinusitis 5. dehydration - due to constant decreased fluid intake even with constant encouragement 6. Incontinence of stool and urine - this likely contributes to the UTI's. Afoley would put her at even more risk for UTI's......Will continue with depends. Nursing checks her frequently throughout the dy to see if she needs changed. BMP in the AM STROKE Vital Signs/Narrative: Vital Signs Temp Pulse Resp BP Pulse Ox 02/25/20 07:39 64 111/53 L 02/25/20 07:26 98 F 64 16 111/53 L 100 Inpatient E&M: [id number] Subs Hosp L2
[2020-02-25 09:23] VITALS: BMI 24.3
[2020-02-25 12:01] LABS: Bedside Glucose 141 mg/dL (70-110)
[2020-02-25] MEDS: Rivaroxaban 20 MG Tablet PO (16:39)
[2020-02-25 17:15] LABS: Bedside Glucose 113 mg/dL (70-110)
[2020-02-25 18:53] VITALS: BP 133/72; PULSE 70; RESP 16; TEMP 36.8; O2SAT 96
[2020-02-25] MEDS: Atorvastatin Calcium 40 MG Tablet PO (20:51)
[2020-02-25 20:52] VITALS: BP 133/72; PULSE 70
[2020-02-25] MEDS: QUEtiapine 25 MG Tablet PO (20:52)
[2020-02-25 21:00] LABS: Bedside Glucose 147 mg/dL (70-110)
[2020-02-25 22:35] VITALS: BMI 24.3
[2020-02-26] MEDS: Capsaicin 0.025% 1 APPLIC Tube TOPICAL ×3 (06:12→20:46)
[2020-02-26] MEDS: Acetaminophen 500 MG Tablet 1000 MG PO ×3 (06:13→20:45)
[2020-02-26 06:16] LABS: Anion Gap 7 (5-15); BUN 20 mg/dL (7-18); BUN/Creat Ratio 24.7 RATIO (10-20); Calcium,Total 8.5 mg/dL (8.5-10.1); Chloride 104 mmol/L (98-107); Creatinine, Serum 0.81 mg/dL (0.55-1.02); EST Glomerular Filtration Rate 74 mL/min (>60); Est Glom Filt Rate - Afr Amer 89 mL/min (>60); Estimated Creatinine Clearance 55.66 ml/min; Glucose 136 mg/dL (74-106); Potassium 4.1 mmol/L (3.5-5.1); Sodium Level 137 mmol/L (136-145)
[2020-02-26] MEDS: glipiZIDE 10 MG Tablet 15 MG PO (06:18)
[2020-02-26 06:41] LABS: Bedside Glucose 136 mg/dL (70-110)
[2020-02-26 07:43] VITALS: BP 113/67; PULSE 63; RESP 16; TEMP 36.8; O2SAT 96
[2020-02-26] MEDS: Sertraline 100 MG Tablet PO (08:59)
[2020-02-26] MEDS: amLODIPine 2.5 MG Tablet PO (08:59)
[2020-02-26 09:00] VITALS: PULSE 74
[2020-02-26] MEDS: Lisinopril 10 MG Tablet PO ×2 (09:00→20:46)
[2020-02-26] MEDS: Metoprolol(XL)Succ 25 MG Tablet PO ×2 (09:00→20:45)
[2020-02-26] MEDS: Pantoprazole Sodium 40 MG Tablet PO (09:00)
[2020-02-26] MEDS: Aspirin 81 MG TAB.CHEW PO (09:01)
[2020-02-26] MEDS: Amox/Clavulanate 875 MG Tablet PO ×2 (09:01→17:09)
[2020-02-26] MEDS: Menthol/Lanolin/Calamine/Znox 113 GM Tube 1 APPLIC TOPICAL ×2 (11:32→20:44)
[2020-02-26 12:11] LABS: Bedside Glucose 142 mg/dL (70-110)
[2020-02-26 15:49] VITALS: BMI 24.3
[2020-02-26] MEDS: Rivaroxaban 20 MG Tablet PO (17:05)
[2020-02-26 17:26] LABS: Bedside Glucose 105 mg/dL (70-110)
--- NOTE | 2020-02-26 19:20 | NURSING ---
in room at beginning of shift with bedrail down and pt sitting on edge of bed with PA unattached. tells staff pt needed to use restroom and pt wanted to walk there- staff reminds and patient that the pt only walks with therapy at this time. pt assisted to bsc with staff assist x2 and no results. pt went back to bed. PA attached. call light within reach. at bedside.
[2020-02-26 19:53] VITALS: BP 146/98; PULSE 64; RESP 16; TEMP 36.6; O2SAT 96
[2020-02-26 20:45] VITALS: PULSE 64
[2020-02-26] MEDS: QUEtiapine 25 MG Tablet PO (20:45)
[2020-02-26] MEDS: Atorvastatin Calcium 40 MG Tablet PO (20:45)
[2020-02-26] MEDS: Estrogens,Conj. 1 Tube 1 DOSE VAGINAL (20:45)
[2020-02-26 20:56] LABS: Bedside Glucose 161 mg/dL (70-110)
[2020-02-26 23:50] VITALS: BMI 24.3
[2020-02-27] MEDS: Acetaminophen 500 MG Tablet 1000 MG PO ×3 (06:21→21:21)
[2020-02-27] MEDS: Capsaicin 0.025% 1 APPLIC Tube TOPICAL ×3 (06:21→21:21)
[2020-02-27] MEDS: glipiZIDE 10 MG Tablet 15 MG PO (06:24)
[2020-02-27 06:36] LABS: Bedside Glucose 131 mg/dL (70-110)
[2020-02-27] MEDS: Amox/Clavulanate 875 MG Tablet PO ×2 (08:02→16:11)
[2020-02-27] MEDS: Aspirin 81 MG TAB.CHEW PO (08:02)
[2020-02-27] MEDS: Menthol/Lanolin/Calamine/Znox 113 GM Tube 1 APPLIC TOPICAL ×2 (08:03→21:22)
[2020-02-27 08:05] VITALS: PULSE 60
[2020-02-27] MEDS: Metoprolol(XL)Succ 25 MG Tablet PO ×2 (08:05→21:21)
[2020-02-27] MEDS: Pantoprazole Sodium 40 MG Tablet PO (08:05)
[2020-02-27] MEDS: amLODIPine 2.5 MG Tablet PO (08:05)
[2020-02-27] MEDS: Sertraline 100 MG Tablet PO (08:06)
[2020-02-27] MEDS: Lisinopril 10 MG Tablet PO ×2 (08:06→21:21)
[2020-02-27 08:47] VITALS: BP 137/77; PULSE 60; RESP 18; TEMP 36.7; O2SAT 100
[2020-02-27 09:02] VITALS: BMI 24.3
[2020-02-27] MEDS: Insulin Lispro 100 UNIT/ML INSULN.PEN SC (11:52)
[2020-02-27 12:00] LABS: Bedside Glucose 202 mg/dL (70-110)
--- NOTE | 2020-02-27 13:27 | PCM.PN.BLA ---
Progress Note Afebrile Vital signs are stable Maintaining appropriate oxygen saturation on room air while awake, on 2 L at bedtime due to abnormal overnight trending pulse ox Blood sugar record was reviewed and the blood sugars are well controlled. All labs from 02/26/2020 was personally reviewed. Potassium is 4.1 and the sodium is 137. Serum bicarb is 20 with a creatinine of 0.81 which is stable. Calcium is within normal limits. All PT/OT/ST notes were reviewed. She is better attending to therapy tasks this week. she was able to stand at the hallway rail for 5 min with min assist on Sun. Still having difficulty initiating steps when ambulating and is still requiring maxa X 1 to ambulate 1 feet. Doing better with using the LUE. alert, pleasant Lungs - diminished but CTA H - RRR.....she has been regular every time I have examined her since she has been in rehab no edema Impressions 1. dehydration - I am going to start an IV today and see if better hydration improves her performance with therapy. She improved somewhat with treating the sinusitis and the UTI 2. DM II - well controlled NS - 100 cc's per hour X 3 liters and recheck the BMP and HH on Sunday Inpatient E&M: [id number] Subs Hosp L1
[2020-02-27] MEDS: 0.9% Normal Saline 1,000 ML 100 ML IV (15:15)
[2020-02-27] MEDS: Rivaroxaban 20 MG Tablet PO (16:11)
[2020-02-27 16:26] LABS: Bedside Glucose 133 mg/dL (70-110)
[2020-02-27 19:30] VITALS: BP 123/55; PULSE 69; RESP 17; TEMP 36.6; O2SAT 97
[2020-02-27 21:21] VITALS: BP 123/55; PULSE 69
[2020-02-27] MEDS: Senna/Docusate Sodium 1 Tablet 2 TABLET PO (21:22)
[2020-02-27] MEDS: QUEtiapine 25 MG Tablet PO (21:22)
[2020-02-27] MEDS: Atorvastatin Calcium 40 MG Tablet PO (21:22)
[2020-02-27 21:26] LABS: Bedside Glucose 148 mg/dL (70-110)
[2020-02-28] MEDS: 0.9% Normal Saline 1,000 ML 100 ML IV ×2 (00:56→11:03)
[2020-02-28 05:00] VITALS: BMI 24.3
[2020-02-28 06:21] LABS: Bedside Glucose 114 mg/dL (70-110)
[2020-02-28] MEDS: Capsaicin 0.025% 1 APPLIC Tube TOPICAL ×2 (06:43→20:01)
[2020-02-28] MEDS: Acetaminophen 500 MG Tablet 1000 MG PO ×2 (06:44→21:36)
[2020-02-28] MEDS: glipiZIDE 10 MG Tablet 15 MG PO (06:44)
[2020-02-28 07:43] VITALS: BP 131/71; PULSE 67; RESP 16; TEMP 37; O2SAT 98
[2020-02-28] MEDS: Sertraline 100 MG Tablet PO (07:57)
[2020-02-28 07:58] VITALS: BP 131/71; PULSE 67
[2020-02-28] MEDS: Pantoprazole Sodium 40 MG Tablet PO (07:58)
[2020-02-28] MEDS: Aspirin 81 MG TAB.CHEW PO (07:58)
[2020-02-28] MEDS: Amox/Clavulanate 875 MG Tablet PO ×2 (07:58→17:40)
[2020-02-28] MEDS: Lisinopril 10 MG Tablet PO ×2 (07:58→20:02)
[2020-02-28] MEDS: Metoprolol(XL)Succ 25 MG Tablet PO ×2 (07:58→20:02)
[2020-02-28] MEDS: amLODIPine 2.5 MG Tablet PO (07:58)
[2020-02-28] MEDS: Menthol/Lanolin/Calamine/Znox 113 GM Tube 1 APPLIC TOPICAL ×2 (08:20→20:03)
[2020-02-28] MEDS: Insulin Lispro 100 UNIT/ML INSULN.PEN SC (11:08)
[2020-02-28 12:06] VITALS: BMI 24.3
[2020-02-28 12:26] LABS: Bedside Glucose 176 mg/dL (70-110)
[2020-02-28 16:30] LABS: Bedside Glucose 93 mg/dL (70-110)
[2020-02-28] MEDS: Rivaroxaban 20 MG Tablet PO (17:40)
[2020-02-28 19:01] VITALS: BP 144/67; PULSE 83; RESP 18; TEMP 37; O2SAT 97
[2020-02-28 19:36] VITALS: BMI 24.3
[2020-02-28 19:37] VITALS: RESP 16
[2020-02-28 20:02] VITALS: PULSE 80
[2020-02-28] MEDS: Atorvastatin Calcium 40 MG Tablet PO (20:03)
[2020-02-28] MEDS: QUEtiapine 25 MG Tablet PO (20:03)
[2020-02-28 21:36] LABS: Bedside Glucose 170 mg/dL (70-110)
[2020-02-29] MEDS: Capsaicin 0.025% 1 APPLIC Tube TOPICAL ×3 (06:04→20:03)
[2020-02-29] MEDS: Acetaminophen 500 MG Tablet 1000 MG PO ×3 (06:06→21:20)
[2020-02-29] MEDS: glipiZIDE 10 MG Tablet 15 MG PO (06:06)
[2020-02-29 06:45] LABS: Bedside Glucose 133 mg/dL (70-110)
[2020-02-29 07:15] LABS: Hematocrit 33.3 % (37-47); Hemoglobin 10.5 g/dL (12.0-15.0)
[2020-02-29 07:36] VITALS: PULSE 67
[2020-02-29 07:36] LABS: Anion Gap 6 (5-15); BUN 17 mg/dL (7-18); BUN/Creat Ratio 21.4 RATIO (10-20); Calcium,Total 8.4 mg/dL (8.5-10.1); Chloride 107 mmol/L (98-107); EST Glomerular Filtration Rate 75 mL/min (>60); Est Glom Filt Rate - Afr Amer 91 mL/min (>60); Estimated Creatinine Clearance 56.36 ml/min; Glucose 133 mg/dL (74-106); Potassium 3.8 mmol/L (3.5-5.1); Sodium Level 139 mmol/L (136-145)
[2020-02-29] MEDS: Metoprolol(XL)Succ 25 MG Tablet PO ×2 (07:36→20:02)
[2020-02-29] MEDS: Pantoprazole Sodium 40 MG Tablet PO (07:36)
[2020-02-29] MEDS: amLODIPine 2.5 MG Tablet PO (07:36)
[2020-02-29] MEDS: Aspirin 81 MG TAB.CHEW PO (07:36)
[2020-02-29] MEDS: Sertraline 100 MG Tablet PO (07:36)
[2020-02-29] MEDS: Lisinopril 10 MG Tablet PO ×2 (07:36→20:02)
[2020-02-29 07:39] VITALS: BP 115/57; PULSE 67; RESP 18; TEMP 36.6; O2SAT 95
[2020-02-29] MEDS: Menthol/Lanolin/Calamine/Znox 113 GM Tube 1 APPLIC TOPICAL ×2 (07:43→20:01)
[2020-02-29 11:40] LABS: Bedside Glucose 120 mg/dL (70-110)
[2020-02-29 14:30] VITALS: BMI 24.3
[2020-02-29] MEDS: Rivaroxaban 20 MG Tablet PO (16:39)
[2020-02-29] MEDS: 0.9% Saline Lock 10 ML Syringe IV (16:41)
[2020-02-29 17:00] LABS: Bedside Glucose 142 mg/dL (70-110)
[2020-02-29 18:48] VITALS: BP 139/70; PULSE 74; RESP 16; TEMP 36.9; O2SAT 97
--- NOTE | 2020-02-29 19:39 | PCM.PN.BLA ---
Progress Note Afebrile since admission Vital signs are stable and blood pressure is well controlled She is maintaining appropriate oxygen saturation on room air while awake Oral intake is erratic Still incontinent of both urine and stool. Last bowel movement was on 02/27/2020 Weight has decreased 2 pounds in the past 6 weeks since admission to the inpatient rehab unit. Blood sugars are well controlled with no hypoglycemia All lab from today was personally reviewed. The hemoglobin today is 10.5, down from 12.6 on 02/18/2020. BUN today is 17 with a creatinine of 0.8 which is the best it has been since admission but, she got IV fluids 02/26-02/27. Potassium is 3.8. PT/OT/ST notes were reviewed. Unfortunately Zena is still requiring much verbal cueing to complete any activity and does not initiate activity on her own. She is still very easily distracted. Progress has been very slow. I do not know that her is taking care of her at this time.......he sits in the room and watches her try to climb out of bed without notifying anyone or trying to get her to stay in bed. She is requiring much more assistance than he is able to provide. Still max assist to go from sitting to standing. She is inconsistent with her performance with PT/OT. She is impulsive at times and has decreased safety awareness. alert, pleasant, oriented to person Lungs - diminished but CTA, not tachypneic and no conversational dyspnea H - RRR, no gallop abd - soft NT ND BS present no peripheral edema no calf tenderness no bruising still with L side neglect. Using her L arm more....still not consistently moving the left leg forward when ambulating and the PT has to move it for her Impressions 1. Post multiple strokes debility - I suspect the strokes have been ongoing for at least 6 months since she first started slurring her words about 6 months ago. She has a very large stroke burden affecting multiple areas of the brain due to AF. Tolerating anticoagulation with no adverse effect. 2. anemia - the drop is probably at least in part due to recent IV fluids......but she did have a heme positive stool. She is on Protonix now. Will likely need endoscopy after DC at some point 3. encephalopathy due to stroke 4. Depression - this is better with Sertraline 5. UTI's X 2 since admission to the rehab unit - due to incontinence of urine and stool...both due to E. Coli 6. Diabetes mellitus type [id number] with no hypoglycemia 7. Vhuomzcldxhi-uyfm-[id number] She had an insurance update on 02/26/20 but, I am not aware of the results. Will continue therapy. I suspect she will be going to an ECF from rehab unless progress significantly improves this coming week. Will discuss on TEAM rounds tomorrow STROKE Vital Signs/Narrative: Vital Signs Temp Pulse Resp BP Pulse Ox 02/29/20 18:48 98.4 F 74 16 139/70 H 97 Inpatient E&M: [id number] Subs Hosp L2
[2020-02-29 19:42] VITALS: BMI 24.3
[2020-02-29] MEDS: Atorvastatin Calcium 40 MG Tablet PO (20:01)
[2020-02-29] MEDS: Senna/Docusate Sodium 1 Tablet 2 TABLET PO (20:01)
[2020-02-29 20:02] VITALS: PULSE 74
[2020-02-29] MEDS: QUEtiapine 25 MG Tablet PO (20:02)
[2020-02-29 21:11] LABS: Bedside Glucose 156 mg/dL (70-110)
[2020-02-29 22:00] VITALS: RESP 16; O2SAT 2
[2020-03-01] MEDS: Capsaicin 0.025% 1 APPLIC Tube TOPICAL ×3 (05:57→20:47)
[2020-03-01] MEDS: Acetaminophen 500 MG Tablet 1000 MG PO ×3 (05:57→21:01)
[2020-03-01] MEDS: glipiZIDE 10 MG Tablet 15 MG PO (06:00)
[2020-03-01 06:35] LABS: Bedside Glucose 129 mg/dL (70-110)
[2020-03-01 07:22] VITALS: BP 127/69; PULSE 60; RESP 16; TEMP 36.8; O2SAT 99
[2020-03-01 08:22] VITALS: BP 127/69; PULSE 60
[2020-03-01] MEDS: Lisinopril 10 MG Tablet PO ×2 (08:22→20:48)
[2020-03-01] MEDS: Metoprolol(XL)Succ 25 MG Tablet PO ×2 (08:22→20:48)
[2020-03-01] MEDS: Aspirin 81 MG TAB.CHEW PO (08:22)
[2020-03-01] MEDS: Sertraline 100 MG Tablet PO (08:22)
[2020-03-01] MEDS: Senna/Docusate Sodium 1 Tablet 2 TABLET PO (08:22)
[2020-03-01] MEDS: amLODIPine 2.5 MG Tablet PO (08:22)
[2020-03-01] MEDS: Pantoprazole Sodium 40 MG Tablet PO (08:22)
[2020-03-01] MEDS: Menthol/Lanolin/Calamine/Znox 113 GM Tube 1 APPLIC TOPICAL ×2 (08:30→20:50)
--- NOTE | 2020-03-01 10:08 | CASEMGMT ---
Social Work IDT met with patient and daughter via conference call for Team Meeting. Discussed patient's progress in therapy. Pt is x1-2 assist for transfers, max x1-2 for bed mobility, walking 20 ft max assist to left side to maintain balance and midline control, can advance right foot at times, but not consistently and needing max cues and assistance. Pt is x2 assist for shower transfer, sitting in the shower is SBA, max to total assist x2 for ADLS, grooming is set up while seated with increased time. ST is working with left neglect, fatigues easily and declines with fatigue, pocketing foods at times. IDT reported pt is consistent with last week and making minimal progress. Discussed SNF for DC soon for pt. Emailed dtr list of SNFs to choose from and reexplained if [employer] does not cover SNF, pt would be private pay - dtr understood as previously stated pt would not qualify for Medicaid. [employer] NRD 03/04 and continued stay is not guaranteed. Will continue to follow. Gabriela Gomes, LEHR TENDER FAMILY AND CONSUMER EDUCATION TEACHER
--- NOTE | 2020-03-01 10:28 | PCM.PN.BLA ---
Progress Note Zena was seen on team rounds today. Her daughter Rachael participated by phone. Afebrile VSS-blood pressure is well controlled and the heart rate is within normal limits consistently. Maintaining appropriate oxygen saturation on RA-99% on room air today. Oral intake yesterday was 1220. Her weight is stable Discussed with nursing - no problems that need addressed. We discussed progress prior to the meeting in the patient's room and everyone is in agreement that progress is very slow. We are concerned that insurance may cut the patient because of this and this was relayed to Mildred on rounds. SW will be sending her a list of nursing facilities to choose from. Reviewed the PT/OT/ST notes Medication list reviewed. The blood sugar record was reviewed and the blood sugars are under very good control. Zena let me know today that she is sad that she will not be going home yet. We stressed to her that she is making progress it is just going to be slow due to the large # of strokes. She denies LLAMAS. She is sleeping and eating well. She denies SOB, cough, chest pain, N/V/abd pain, dysuria. She fatigues quickly with therapy. She is shaking her leg today while the TEAM is presenting but, she denies feeling anxious.....she stops and starts at will so I do not suspect that this is a focal motor seizure. Alert but, not making good eye contact when listening to the therapists talk about her. She will look at me when I address her. She is sitting in the WC and she does not appear to be in any distress. She is not tachypneic and she has no conversational dyspnea. Lungs - diminished but, CTA Heart RRR abd - soft, ND, Normal BS and no guarding with palpation no edema and no calf tenderness she is slumped to the left in the WC........she has poor truncal stability.....she requires a lot of cuing to maintain posture when she is sitting and she can maintain her posture while sitting with therapy but, when she is not doing therapy she is always slumped to the left. Still with neglect of the left side. Facial droop is not as pronounced. Impressions 1. post stroke debility with left side weakness, cognitive dysfunction, persistent Left side neglect, not initiating movement on her own and very slow progress over the past 6 weeks. Due to the number of strokes she had due to AF I suspect any further progress is going to be slow. Her will not be able to care for her without help. 2. PAF - now on Xarelto 3. incontinence of urine and stool. Has had 2 UTI's due to E. Coli this admission. Straight cath for a UA today to make sure the infection has not recurred after 7 days of Augmentin recently. If no sign of infect will start her on a prophylactic antibiotic for the next 3 months. answered all of Mildred's questions. continue therapy Consider adding Wellbutrin to the Sertraline - but, will need to monitor closely for any seizure activity since Wellbutrin lowers seizure threshold STROKE Vital Signs/Narrative: Vital Signs Temp Pulse Resp BP Pulse Ox 03/01/20 08:22 60 127/69 H 03/01/20 07:22 98.3 F 60 16 127/69 H 99 Inpatient E&M: [id number] Subs Hosp L2
[2020-03-01 11:24] VITALS: BMI 24.3
[2020-03-01 11:30] LABS: Bedside Glucose 179 mg/dL (70-110)
[2020-03-01] MEDS: Insulin Lispro 100 UNIT/ML INSULN.PEN SC (12:14)
[2020-03-01 12:21] LABS: Color, Urine Yellow (Yellow); Glucose, Dipstick Normal (Normal); Ketone-Dipstick Negative (Negative); Leukocyte Esterase-Dipstick Negative /ul (Negative); Nitrite-Dipstick Negative (Negative); Occult Blood-Urine Negative /ul (Negative); Protein-Dipstick Negative (Negative); Specific Gravity, Urine 1.015 (1.002-1.030); Urine Bilirubin Dipstick Negative (Negative); Urine Clarity Sl. Cloudy (Clear); Urine Urobilinogen Normal (Normal)
[2020-03-01] MEDS: Rivaroxaban 20 MG Tablet PO (16:23)
[2020-03-01 16:45] LABS: Bedside Glucose 139 mg/dL (70-110)
[2020-03-01 18:35] VITALS: BP 125/72; PULSE 64; RESP 16; TEMP 37.1; O2SAT 96
[2020-03-01 20:40] VITALS: BMI 24.3
[2020-03-01 20:48] VITALS: PULSE 64
[2020-03-01] MEDS: buPROPion 75 MG Tablet PO (20:48)
[2020-03-01] MEDS: Estrogens,Conj. 1 Tube 1 DOSE VAGINAL (20:49)
[2020-03-01] MEDS: QUEtiapine 25 MG Tablet PO (20:49)
[2020-03-01] MEDS: Atorvastatin Calcium 40 MG Tablet PO (20:50)
[2020-03-01 21:36] LABS: Bedside Glucose 155 mg/dL (70-110)
[2020-03-01 22:00] VITALS: RESP 17; O2SAT 2
[2020-03-02] MEDS: Acetaminophen 500 MG Tablet 1000 MG PO ×3 (06:30→20:41)
[2020-03-02] MEDS: glipiZIDE 10 MG Tablet 15 MG PO (06:30)
[2020-03-02] MEDS: Capsaicin 0.025% 1 APPLIC Tube TOPICAL ×3 (06:31→20:42)
[2020-03-02 06:46] LABS: Bedside Glucose 129 mg/dL (70-110)
[2020-03-02 07:37] VITALS: BP 105/66; PULSE 60; RESP 16; TEMP 37.1; O2SAT 99
[2020-03-02] MEDS: Sertraline 100 MG Tablet PO (07:48)
[2020-03-02] MEDS: amLODIPine 2.5 MG Tablet PO (07:48)
[2020-03-02] MEDS: Aspirin 81 MG TAB.CHEW PO (07:48)
[2020-03-02 07:49] VITALS: PULSE 66
[2020-03-02] MEDS: Lisinopril 10 MG Tablet PO ×2 (07:49→20:42)
[2020-03-02] MEDS: Pantoprazole Sodium 40 MG Tablet PO (07:49)
[2020-03-02] MEDS: Metoprolol(XL)Succ 25 MG Tablet PO ×2 (07:49→20:41)
[2020-03-02] MEDS: buPROPion 75 MG Tablet PO ×2 (07:49→20:42)
[2020-03-02] MEDS: Menthol/Lanolin/Calamine/Znox 113 GM Tube 1 APPLIC TOPICAL ×2 (08:33→20:45)
[2020-03-02] MEDS: Insulin Lispro 100 UNIT/ML INSULN.PEN SC (11:25)
[2020-03-02 11:30] LABS: Bedside Glucose 249 mg/dL (70-110)
[2020-03-02 12:26] VITALS: BMI 24.3
[2020-03-02 16:31] LABS: Bedside Glucose 82 mg/dL (70-110)
[2020-03-02] MEDS: Rivaroxaban 20 MG Tablet PO (16:58)
[2020-03-02 20:41] VITALS: BP 132/66; PULSE 68
[2020-03-02] MEDS: Atorvastatin Calcium 40 MG Tablet PO (20:41)
[2020-03-02] MEDS: QUEtiapine 25 MG Tablet PO (20:41)
[2020-03-02 20:51] VITALS: BP 132/66; PULSE 68; RESP 16; TEMP 36.7; O2SAT 96
[2020-03-02 22:00] VITALS: O2SAT 2
[2020-03-02 22:25] LABS: Bedside Glucose 149 mg/dL (70-110)
[2020-03-02 23:07] VITALS: BMI 24.3
--- NOTE | 2020-03-03 03:54 | NURSING ---
upon doing 0400 hourly rounds, pt noted to be curled up in a ball with knees elevated up towards chest. When attempting to straighten left knee and leg, the pt cries out in pain. The knee and leg would straighten out a little bit and then become painful and the leg would contract back up towards the chest. this nurse was rubbing thigh and knee while trying to straighten out leg. pt states that this is helpful. when knee and leg are completely straight, this nurse notices that the left foot has toes pointed down towards foot of bed. Left leg placed on pillows and foot straightened with towel rolled up at the bottom. will continue to monitor for contracture of the left leg and will continue to monitor the foot. note left for dr garcia. call light within reach and PA attached.
[2020-03-03] MEDS: Capsaicin 0.025% 1 APPLIC Tube TOPICAL ×3 (06:29→21:27)
[2020-03-03] MEDS: Acetaminophen 500 MG Tablet 1000 MG PO ×3 (06:30→21:28)
[2020-03-03] MEDS: glipiZIDE 10 MG Tablet 15 MG PO (06:30)
[2020-03-03 06:50] LABS: Bedside Glucose 156 mg/dL (70-110)
[2020-03-03 07:00] VITALS: BP 134/71; PULSE 63; RESP 16; TEMP 36.9; O2SAT 97
[2020-03-03] MEDS: Insulin Lispro 100 UNIT/ML INSULN.PEN SC ×3 (08:10→17:18)
[2020-03-03] MEDS: buPROPion 75 MG Tablet PO ×2 (08:10→21:28)
[2020-03-03] MEDS: Sertraline 100 MG Tablet PO (08:10)
[2020-03-03] MEDS: Pantoprazole Sodium 40 MG Tablet PO (08:10)
[2020-03-03] MEDS: Lisinopril 10 MG Tablet PO ×2 (08:10→21:29)
[2020-03-03 08:11] VITALS: BP 134/71; PULSE 63
[2020-03-03] MEDS: Aspirin 81 MG TAB.CHEW PO (08:11)
[2020-03-03] MEDS: Metoprolol(XL)Succ 25 MG Tablet PO ×2 (08:11→21:28)
[2020-03-03] MEDS: amLODIPine 2.5 MG Tablet PO (08:11)
[2020-03-03] MEDS: Menthol/Lanolin/Calamine/Znox 113 GM Tube 1 APPLIC TOPICAL ×2 (08:21→21:30)
[2020-03-03 11:55] LABS: Bedside Glucose 154 mg/dL (70-110)
--- NOTE | 2020-03-03 14:08 | PCM.PN.BLA ---
Progress Note Afebrile Vital signs are stable and the blood pressure is very well controlled. She is maintaining appropriate oxygen saturation on room air while awake. PT/OT/ST notes were reviewed Medication list was reviewed Blood sugar record was reviewed and blood sugars are well controlled. She has had no hypoglycemia. Urine culture from 03/01/2020 had no growth. Zena is c/o left hip pain today. She tells me the knee pain is better. Zena denies chest pain, shortness of breath, cough, nausea, vomiting, abdominal pain, dysuria. Alert, appropriate. She made cupcakes with OT today and she read the box, located the ingredients and only required minimal A with properly measuring the ingredients. She is able to follow simple commands today She was able to reach up with the LUE today and touch my finger an arms length away. she is still requiring Max assist for dressing, toileting and stand and pivot. She is smiling and she willingly participates in everything therapy asks of her. Not advancing the left foot today with walking - possibly because of the left hip pain. Lungs - CTA H - RRR....she has never been in AF any of the time I Have examined her over the past 6 weeks. abd - soft, NT, ND, BS present and they are not hyperactive no peripheral edema, no redness or swelling of the knees no calf tenderness Impressions 1. debility post multiple CVA's due to emboli from AF. Zena seems to have plateaued. 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 She just can not retain information and can not remember what she is supposed to do. She is unable to initiate activity without someone cueing her what to do 2. OA - knee pain and left hip pain 3. DM II - well controlled 4. HTN - controlled 5. heme + stool - on Protonix. Needs endoscopy following discharge from rehab Check a HH in the AM Start Capsaicin TID to the L hip Inpatient E&M: [id number] Subs Hosp L2
[2020-03-03 15:16] VITALS: BMI 24.3
[2020-03-03 17:05] LABS: Bedside Glucose 151 mg/dL (70-110)
[2020-03-03] MEDS: Rivaroxaban 20 MG Tablet PO (17:18)
[2020-03-03 20:45] VITALS: BP 150/72; PULSE 63; RESP 18; TEMP 37; O2SAT 97; BMI 24.3
[2020-03-03 21:28] VITALS: BP 150/72; PULSE 63
[2020-03-03] MEDS: Senna/Docusate Sodium 1 Tablet 2 TABLET PO (21:28)
[2020-03-03] MEDS: QUEtiapine 25 MG Tablet PO (21:29)
[2020-03-03] MEDS: Atorvastatin Calcium 40 MG Tablet PO (21:29)
[2020-03-03 22:40] LABS: Bedside Glucose 146 mg/dL (70-110)
--- NOTE | 2020-03-04 00:24 | NURSING ---
reviewed and agree with DEPENDENCY DIRECTOR's assessment and functional charting.
[2020-03-04] MEDS: Capsaicin 0.025% 1 APPLIC Tube TOPICAL ×3 (05:23→21:18)
[2020-03-04] MEDS: Acetaminophen 500 MG Tablet 1000 MG PO ×3 (05:23→21:13)
[2020-03-04 05:46] LABS: Hematocrit 34.4 % (37-47); Hemoglobin 10.8 g/dL (12.0-15.0)
[2020-03-04 06:46] LABS: Bedside Glucose 143 mg/dL (70-110)
[2020-03-04 07:58] VITALS: BP 123/85; PULSE 63; RESP 16; TEMP 36.4; O2SAT 94
[2020-03-04 08:13] VITALS: BP 123/85; PULSE 63
[2020-03-04] MEDS: buPROPion 75 MG Tablet PO ×2 (08:13→21:12)
[2020-03-04] MEDS: Sertraline 100 MG Tablet PO (08:13)
[2020-03-04] MEDS: Aspirin 81 MG TAB.CHEW PO (08:13)
[2020-03-04] MEDS: Metoprolol(XL)Succ 25 MG Tablet PO ×2 (08:13→21:12)
[2020-03-04] MEDS: Lisinopril 10 MG Tablet PO ×2 (08:14→21:12)
[2020-03-04] MEDS: amLODIPine 2.5 MG Tablet PO (08:14)
[2020-03-04] MEDS: glipiZIDE 10 MG Tablet 15 MG PO (08:14)
[2020-03-04] MEDS: Pantoprazole Sodium 40 MG Tablet PO (08:14)
[2020-03-04] MEDS: Menthol/Lanolin/Calamine/Znox 113 GM Tube 1 APPLIC TOPICAL ×2 (08:23→20:11)
--- NOTE | 2020-03-04 09:38 | CASEMGMT ---
Social Work Left message with dtr to follow-up on SNF options. Will continue to follow. Gabriela Gomes, FOUNDRY PROCESS ENGINEER PERSONNEL CLERK
[2020-03-04 09:41] VITALS: BMI 24.3
[2020-03-04] MEDS: Insulin Lispro 100 UNIT/ML INSULN.PEN SC (11:14)
[2020-03-04 11:15] LABS: Bedside Glucose 207 mg/dL (70-110)
[2020-03-04 16:30] VITALS: O2SAT 95
[2020-03-04] MEDS: Rivaroxaban 20 MG Tablet PO (16:30)
[2020-03-04 16:56] LABS: Bedside Glucose 101 mg/dL (70-110)
[2020-03-04 19:46] VITALS: BP 124/66; PULSE 67; RESP 16; TEMP 37; O2SAT 95
[2020-03-04] MEDS: Estrogens,Conj. 1 Tube 1 DOSE VAGINAL (20:12)
[2020-03-04 21:12] VITALS: BP 124/66; PULSE 67
[2020-03-04] MEDS: QUEtiapine 25 MG Tablet PO (21:12)
[2020-03-04] MEDS: Atorvastatin Calcium 40 MG Tablet PO (21:12)
[2020-03-04 21:25] LABS: Bedside Glucose 223 mg/dL (70-110)
[2020-03-05] VITALS (8 sets, daily range): BP systolic 99–141; BP diastolic 53–71; PULSE 62–67; RESP 16–17; TEMP 36.7–36.9; O2SAT 97–99; BMI 24.3
[2020-03-05] MEDS: glipiZIDE 10 MG Tablet 15 MG PO (06:24)
[2020-03-05] MEDS: Acetaminophen 500 MG Tablet 1000 MG PO ×2 (06:24→22:17)
[2020-03-05] MEDS: Capsaicin 0.025% 1 APPLIC Tube TOPICAL ×2 (06:26→13:46)
[2020-03-05 06:31] LABS: Bedside Glucose 145 mg/dL (70-110)
[2020-03-05] MEDS: Sertraline 100 MG Tablet PO (08:53)
[2020-03-05] MEDS: Aspirin 81 MG TAB.CHEW PO (08:54)
[2020-03-05] MEDS: Pantoprazole Sodium 40 MG Tablet PO (08:54)
[2020-03-05] MEDS: buPROPion 75 MG Tablet PO ×2 (08:54→20:19)
[2020-03-05] MEDS: Menthol/Lanolin/Calamine/Znox 113 GM Tube 1 APPLIC TOPICAL ×2 (09:15→20:17)
[2020-03-05 11:16] LABS: Bedside Glucose 151 mg/dL (70-110)
--- NOTE | 2020-03-05 11:23 | NURSING ---
This nurse is aware that blood sugar is 151. Will give 1 unit of novolog per orders with lunch.
[2020-03-05] MEDS: Metoprolol(XL)Succ 25 MG Tablet PO ×2 (13:42→20:19)
[2020-03-05] MEDS: Lisinopril 10 MG Tablet PO ×2 (13:42→20:19)
[2020-03-05] MEDS: amLODIPine 2.5 MG Tablet PO (13:42)
--- NOTE | 2020-03-05 15:11 | PCM.PN.BLA ---
Progress Note Afebrile VSS, BP is under good control She is maintaining appropriate oxygen saturation on room air Oral fluid intake is widely variable.....she has to be reminded to drink water. No problems from nursing. She is sleeping well and is awake during the day. Willingly doing therapy. Reviewed the PT/OT/ST notes.......progress is very slow Blood sugars are well controlled She has no complaints today. She eats good and almost always cleans her plate. No longer c/o hip or knee pain no cough and no SOB Alert, pleasant, NAD Lungs - diminished in the bases but, CTA H - RRR, no gallop abd - soft with normal BS's no ankle edema no calf tenderness no rashes and no breakdown Impressions 1. post stroke debility 2. DM II - controlled 3. HTN - controlled 4. Sleep disordered breathing - on O2 at night. Will need a formal sleep study post DC from rehab 5. HLD 6. Persistent fecal and urinary incontinence. This has led to 2 urinary tract infections since admission, both due to E. coli. 7. Cognitive dysfunction/encephalopathy post multiple BL lacunar infarcts due to PAF - has been in NSR every time I have examined her while in rehab. 8. PAF - on Xarelto 9. N/N anemia - stable 10. Heme + stool - on Protonix. No GI complaints DC the SSI continue therapy Sleep study at [place]. STROKE Vital Signs/Narrative: Vital Signs Pulse 03/05/20 13:42 67 Inpatient E&M: [id number] Subs Hosp L2
[2020-03-05 16:46] LABS: Bedside Glucose 74 mg/dL (70-110)
[2020-03-05] MEDS: Rivaroxaban 20 MG Tablet PO (18:24)
[2020-03-05] MEDS: QUEtiapine 25 MG Tablet PO (20:18)
[2020-03-05] MEDS: Atorvastatin Calcium 40 MG Tablet PO (20:18)
[2020-03-05 21:01] LABS: Bedside Glucose 215 mg/dL (70-110)
[2020-03-06] MEDS: Capsaicin 0.025% 1 APPLIC Tube TOPICAL ×3 (05:25→21:09)
[2020-03-06] MEDS: Acetaminophen 500 MG Tablet 1000 MG PO ×3 (05:25→21:08)
[2020-03-06] MEDS: glipiZIDE 10 MG Tablet 15 MG PO (06:36)
[2020-03-06 07:00] VITALS: BP 116/58; PULSE 66; RESP 16; TEMP 36.7; O2SAT 97
[2020-03-06 07:00] LABS: Bedside Glucose 121 mg/dL (70-110)
[2020-03-06 07:50] VITALS: BP 116/58; PULSE 66
[2020-03-06] MEDS: Pantoprazole Sodium 40 MG Tablet PO (07:50)
[2020-03-06] MEDS: Metoprolol(XL)Succ 25 MG Tablet PO ×2 (07:50→21:08)
[2020-03-06] MEDS: Senna/Docusate Sodium 1 Tablet 2 TABLET PO (07:50)
[2020-03-06] MEDS: Sertraline 100 MG Tablet PO (07:50)
[2020-03-06] MEDS: Lisinopril 10 MG Tablet PO ×2 (07:50→21:09)
[2020-03-06] MEDS: buPROPion 75 MG Tablet PO ×2 (07:51→21:09)
[2020-03-06] MEDS: Aspirin 81 MG TAB.CHEW PO (07:51)
[2020-03-06] MEDS: amLODIPine 2.5 MG Tablet PO (07:51)
[2020-03-06] MEDS: Menthol/Lanolin/Calamine/Znox 113 GM Tube 1 APPLIC TOPICAL ×2 (07:52→21:16)
[2020-03-06 08:48] VITALS: BMI 24.3
[2020-03-06] MEDS: Insulin Lispro 100 UNIT/ML INSULN.PEN SC (12:02)
[2020-03-06 12:05] LABS: Bedside Glucose 230 mg/dL (70-110)
[2020-03-06 15:25] VITALS: O2SAT 97
[2020-03-06 15:56] LABS: Bedside Glucose 148 mg/dL (70-110)
[2020-03-06] MEDS: Rivaroxaban 20 MG Tablet PO (16:00)
[2020-03-06 21:08] VITALS: BP 115/97; PULSE 65
[2020-03-06] MEDS: QUEtiapine 25 MG Tablet PO (21:08)
[2020-03-06] MEDS: Atorvastatin Calcium 40 MG Tablet PO (21:08)
[2020-03-06 21:11] LABS: Bedside Glucose 169 mg/dL (70-110)
[2020-03-06 21:17] VITALS: BP 115/97; PULSE 65; RESP 16; TEMP 37; O2SAT 98
[2020-03-06 21:26] VITALS: BMI 24.3
[2020-03-07] MEDS: Capsaicin 0.025% 1 APPLIC Tube TOPICAL ×3 (05:44→20:36)
[2020-03-07] MEDS: Acetaminophen 500 MG Tablet 1000 MG PO ×3 (05:44→20:35)
[2020-03-07] MEDS: glipiZIDE 10 MG Tablet 15 MG PO (05:54)
[2020-03-07 06:51] LABS: Bedside Glucose 122 mg/dL (70-110)
[2020-03-07] MEDS: Aspirin 81 MG TAB.CHEW PO (07:39)
[2020-03-07] MEDS: Menthol/Lanolin/Calamine/Znox 113 GM Tube 1 APPLIC TOPICAL ×2 (07:40→20:34)
[2020-03-07 07:41] VITALS: PULSE 67
[2020-03-07] MEDS: Pantoprazole Sodium 40 MG Tablet PO (07:41)
[2020-03-07] MEDS: amLODIPine 2.5 MG Tablet PO (07:41)
[2020-03-07] MEDS: Metoprolol(XL)Succ 25 MG Tablet PO ×2 (07:41→20:35)
[2020-03-07] MEDS: buPROPion 75 MG Tablet PO ×2 (07:42→20:36)
[2020-03-07] MEDS: Lisinopril 10 MG Tablet PO ×2 (07:42→20:36)
[2020-03-07] MEDS: Sertraline 100 MG Tablet PO (07:43)
[2020-03-07 08:26] VITALS: BP 117/66; PULSE 67; RESP 18; TEMP 36.7; O2SAT 98
[2020-03-07 08:32] VITALS: BMI 24.3
[2020-03-07 11:51] LABS: Bedside Glucose 246 mg/dL (70-110)
[2020-03-07] MEDS: Rivaroxaban 20 MG Tablet PO (16:51)
[2020-03-07 16:55] LABS: Bedside Glucose 97 mg/dL (70-110)
[2020-03-07 17:43] VITALS: O2SAT 98
[2020-03-07 20:20] VITALS: BP 118/72; PULSE 71; RESP 16; TEMP 37.1; O2SAT 96
[2020-03-07 20:35] VITALS: BP 118/72; PULSE 71
[2020-03-07] MEDS: Atorvastatin Calcium 40 MG Tablet PO (20:35)
[2020-03-07] MEDS: QUEtiapine 25 MG Tablet PO (20:35)
[2020-03-07 20:41] LABS: Bedside Glucose 128 mg/dL (70-110)
[2020-03-07 21:34] VITALS: BMI 24.3
[2020-03-08] MEDS: Acetaminophen 500 MG Tablet 1000 MG PO ×3 (06:01→21:32)
[2020-03-08] MEDS: Capsaicin 0.025% 1 APPLIC Tube TOPICAL ×3 (06:01→19:44)
[2020-03-08] MEDS: glipiZIDE 10 MG Tablet 15 MG PO (06:02)
[2020-03-08 06:40] LABS: Bedside Glucose 115 mg/dL (70-110)
[2020-03-08 07:23] VITALS: BP 119/66; PULSE 62
[2020-03-08] MEDS: buPROPion 75 MG Tablet PO ×2 (07:23→19:43)
[2020-03-08] MEDS: Aspirin 81 MG TAB.CHEW PO (07:23)
[2020-03-08] MEDS: Pantoprazole Sodium 40 MG Tablet PO (07:23)
[2020-03-08] MEDS: Lisinopril 10 MG Tablet PO ×2 (07:23→19:43)
[2020-03-08] MEDS: Metoprolol(XL)Succ 25 MG Tablet PO ×2 (07:23→19:43)
[2020-03-08] MEDS: amLODIPine 2.5 MG Tablet PO (07:23)
[2020-03-08] MEDS: Sertraline 100 MG Tablet PO (07:25)
[2020-03-08] MEDS: Menthol/Lanolin/Calamine/Znox 113 GM Tube 1 APPLIC TOPICAL ×2 (07:32→19:43)
[2020-03-08 07:46] VITALS: BP 119/66; RESP 16; TEMP 36.7; O2SAT 97
--- NOTE | 2020-03-08 08:25 | CASEMGMT ---
Social Work IDT met with patient and daughter via conference call for Team Meeting. Discussed patient's progress in therapy. Pt is making slow progress, and needing a little more assistance with transfers this week. Pt is max x1 or mod x1 and max x1, leaning to left, left knee not as stable, walking 25 ft with FWW x2 assist to encourage center to midline and advancing left leg forward. Pt is attempting to use left arm more, neglect is slowly improving. Pt is set up for grooming while seated, max assist with UE dressing, total for LE dressing, sleeping well and cream effective for pain. ST continues to work on swallowing and cognition. Explained insurance NRD 03/04 and continued stay is not guaranteed. Inquired about list of SNFs provided to dtr and to have dtr provide SW with several to refer to on this date. Pt has no preference and trusts dtr to make decision. Dtr agreeable. Will continue to follow. Gabriela Gomes, TAKE DOWN SORTER CUP SETTER LOCKSTITCH
[2020-03-08 08:58] VITALS: BMI 24.3
[2020-03-08 12:16] LABS: Bedside Glucose 130 mg/dL (70-110)
[2020-03-08 16:30] LABS: Bedside Glucose 125 mg/dL (70-110)
[2020-03-08] MEDS: Rivaroxaban 20 MG Tablet PO (16:30)
[2020-03-08 18:37] VITALS: BP 133/72; PULSE 69; RESP 16; TEMP 36.9; O2SAT 96
[2020-03-08 19:28] VITALS: RESP 16
[2020-03-08 19:43] VITALS: PULSE 65
[2020-03-08] MEDS: Atorvastatin Calcium 40 MG Tablet PO (19:43)
[2020-03-08] MEDS: Estrogens,Conj. 1 Tube 1 DOSE VAGINAL (19:43)
[2020-03-08] MEDS: QUEtiapine 25 MG Tablet PO (19:43)
[2020-03-08 20:13] VITALS: BMI 24.3
[2020-03-08 21:35] LABS: Bedside Glucose 138 mg/dL (70-110)
--- NOTE | 2020-03-08 22:07 | PCM.PROGNOTE ---
Patient Problems: Active and Suspected Problems Ischemic cerebrovascular accident (CVA) (Acute) MRI on 01/02/20 shows multiple areas of restricted diffusion including the anterior corpus callosum, bilateral periventricular white matter, the left thalamus, left brachium pontis and the left cerebellum. These have been attributed to multiple ischemic infarcts more likely than not due to AF. PAF (paroxysmal atrial fibrillation) (Acute) recently started on Xarelto Diabetes mellitus type 2 in nonobese (Acute) Anticoagulated by anticoagulation treatment (Acute) Xarelto - not on 15 mg BID initially...started on 20 mg daily at [facility] Subjective: Patient seen today, during Team rounds. She has no complaints, flat affect, progressing slowly in therapy. - Physical Exam Vitals/I&O's: Vital Signs Temp Pulse Resp BP Pulse Ox 98.4 F 65 16 133/72 H 96 03/08/20 18:37 03/08/20 19:43 03/08/20 19:28 03/08/20 18:37 03/08/20 18:37 Oxygen Flow Rate (L/min) 2 Oxygen Delivery Method Room Air Weight: 69.4 kg Body Mass Index (BMI) 24.3 Intake and Output for Last 24 Hours 03/06/20 03/07/20 03/08/20 23:59 23:59 23:59 Intake Total 1080 / 1080 1220 / 1220 1160 / 1160 Balance 1080 / 1080 1220 / 1220 1160 / 1160 General: Alert, Oriented x3, Cooperative HEENT: Atraumatic, PERRLA, EOMI, Normocephalic Neck: Supple, No JVD, Negative Carotid Bruits Lungs: Clear to auscultation, Normal air movement Cardiovascular: Regular rate, No murmurs Abdomen: Bowel Sounds Present, Soft, Non Tender Extremities: No edema, Capillary Refill Less than 3 Seconds Skin: No rashes, No breakdown Musculoskeletal: No Tenderness to Palpation of Joints or Extremities Neurological: Cranial nerves II-XII grossly intact, - - Right hemiparesis. Psych/Mental Status: Normal Affect, Appropriate Laboratory Results 03/08/20 06:07: POC Glucose 115 H 03/08/20 12:10: POC Glucose 130 H 03/08/20 16:09: POC Glucose 125 H 03/08/20 21:32: POC Glucose 138 H Current Medications Acetaminophen (Tylenol) 1,000 mg PO Q8 [facility] Last Admin: 03/08/20 21:32 Dose: 1,000 mg Documented by: Amlodipine Besylate (Norvasc) 2.5 mg PO DAILY [facility] Last Admin: 03/08/20 07:23 Dose: 2.5 mg Documented by: Aspirin (Aspirin, Baby) 81 mg PO DAILY@0800 [facility] Last Admin: 03/08/20 07:23 Dose: 81 mg Documented by: Atorvastatin Calcium (Lipitor) 40 mg PO QHS [facility] Last Admin: 03/08/20 19:43 Dose: 40 mg Documented by: Bisacodyl (Dulcolax) 10 mg RECTAL .PRN X 1 PRN PRN Reason: Constipation Bupropion HCl (Wellbutrin Tablets) 75 mg PO BID [facility] Last Admin: 03/08/20 19:43 Dose: 75 mg Documented by: Calamine/Phenol (Calmoseptine Ointment) 1 applic TOPICAL BID [facility]; Protocol Last Admin: 03/08/20 19:43 Dose: 1 applicatio Documented by: Capsaicin (Zostrix) 1 applic TOPICAL TID [facility]; Protocol Last Admin: 03/08/20 19:44 Dose: 1 applicatio Documented by: Estrogens Conjugated (Premarin) 1 dose VAGINAL MoTh@2200 [facility] Last Admin: 03/08/20 19:43 Dose: 1 dose Documented by: Glipizide (Glucotrol) 15 mg PO BREAKFAST@0700 [facility] Last Admin: 03/08/20 06:02 Dose: 15 mg Documented by: Sodium Chloride () 250 mls @ 15 mls/hr IV .[id number] PRN PRN Reason: Saline Flush Last Infusion: 02/23/20 14:03 Dose: Infused Documented by: Sodium Chloride () 250 mls @ 15 mls/hr IV .[id number] PRN PRN Reason: Additional IVPB Infusion Insulin Glargine (Lantus (Bkc)) 6 units SC DAILY [facility] Last Admin: 03/08/20 07:24 Dose: 6 u Documented by: Lactobacillus Acidophilus (Acidophilus) 1 tablet PO BID [facility] Last Admin: 03/08/20 19:42 Dose: 1 tablet Documented by: Lisinopril (Zestril) 10 mg PO BID [facility] Last Admin: 03/08/20 19:43 Dose: 10 mg Documented by: Magnesium Hydroxide (Milk Of Magnesia) 30 ml PO .PRN X 1 PRN PRN Reason: Constipation Metoprolol Succinate (Toprol Xl (Beta Issac)) 25 mg PO BID [facility] Last Admin: 03/08/20 19:43 Dose: 25 mg Documented by: Pantoprazole Sodium (Protonix) 40 mg PO DAILY [facility] Last Admin: 03/08/20 07:23 Dose: 40 mg Documented by: Potassium Chloride (K-Dur) 10 meq PO DAILYCM [facility] Last Admin: 03/08/20 07:23 Dose: 10 meq Documented by: Quetiapine Fumarate (Seroquel) 25 mg PO QHS [facility] Last Admin: 03/08/20 19:43 Dose: 25 mg Documented by: Rivaroxaban (Xarelto) 20 mg PO DAILY@1700 [facility] Last Admin: 03/08/20 16:30 Dose: 20 mg Documented by: Senna/Docusate Sodium (Senokot-S, Cammie-Colace) 2 tablet PO BID [facility] Last Admin: 03/08/20 19:30 Dose: Not Given Documented by: Sertraline HCl (Zoloft) 100 mg PO DAILY [facility] Last Admin: 03/08/20 07:25 Dose: 100 mg Documented by: Sodium Chloride () 10 - 40 ml IV UD PRN PRN Reason: SALINE FLUSH Last Admin: 02/29/20 16:41 Dose: 10 ml Documented by: Capacity - Capacity Assessment Tool Can the patient make a choice & communicate that choice?: No Can the patient understand benefits, risks and alternatives?: No Can the patient make a logical, rational choice?: No Is the choice the patient makes consistent w/ their values?: No Is there an impending, emergent risk to the patient?: No Does the patient have an Advance Directive?: No Is there a Surrogate Available?: Yes i.e. HCPOA: Yes i.e. close relative (spouse, child, parent, sibling)?: Yes Medical Necessity - Tobacco Use Smoking Status: Never smoker Tobacco Use: Non-smoker Assessment/Plan All Active Problems Ischemic cerebrovascular accident (CVA) (Acute) PAF (paroxysmal atrial fibrillation) (Acute) Diabetes mellitus type 2 in nonobese (Acute) Anticoagulated by anticoagulation treatment (Acute) 74 year old female with below past medical history hospitalized for stroke secondary to atrial fibrillation, admitted to for 3 hours of therapy per day. Debility - PT/OT. Cognition/Stroke - ST. Pain - Tylenol 1000MG Q8H, Zostrix topical TID. Bowel - Senna/colace 2 tablets BID, MOM 30ML PO PRN, Dulcolax 10MG daily PRN. Hypertension - Metoprolol succinate 25MG BID, Lisinopril 10MG BID, Amlodipine 2.5MG daily. Stroke - Aspirin 81MG, Xarelto 20MG daily. Atrial Fibrillation - Metoprolol succinate 25MG BID, Xarelto 20MG daily. Hyperlipidemia - Atorvastatin 40MG QHS. Depression - Sertraline 100MG daily, Bupropion 75MG twice daily. Atrophic Vaginitis - Premarin vaginal 2 days/week. Diabetes Mellitus II - Glipizide 15MG daily, Lantus 6 units daily. GI prophylaxis - Lactobacillus 1 tablet twice daily. Skin irritation - Calmoseptine BID. GERD - Pantoprazole 40MG daily. Hypokalemia - K-Dur 10MEQ daily. Agitation - Seroquel 25MG QHS.
[2020-03-09] MEDS: Capsaicin 0.025% 1 APPLIC Tube TOPICAL ×3 (06:06→19:50)
[2020-03-09] MEDS: glipiZIDE 10 MG Tablet 15 MG PO (06:07)
[2020-03-09] MEDS: Acetaminophen 500 MG Tablet 1000 MG PO ×2 (06:07→22:30)
[2020-03-09 06:10] LABS: Bedside Glucose 137 mg/dL (70-110)
[2020-03-09] MEDS: Aspirin 81 MG TAB.CHEW PO (07:48)
[2020-03-09 07:49] VITALS: BP 105/51; PULSE 63
[2020-03-09] MEDS: amLODIPine 2.5 MG Tablet PO (07:49)
[2020-03-09] MEDS: Pantoprazole Sodium 40 MG Tablet PO (07:49)
[2020-03-09] MEDS: Metoprolol(XL)Succ 25 MG Tablet PO ×2 (07:49→19:49)
[2020-03-09] MEDS: Lisinopril 10 MG Tablet PO ×2 (07:50→19:50)
[2020-03-09] MEDS: Sertraline 100 MG Tablet PO (07:50)
[2020-03-09] MEDS: buPROPion 75 MG Tablet PO ×2 (07:50→19:49)
[2020-03-09] MEDS: Menthol/Lanolin/Calamine/Znox 113 GM Tube 1 APPLIC TOPICAL ×2 (07:52→19:49)
[2020-03-09 08:06] VITALS: BP 105/51; PULSE 63; RESP 16; TEMP 36.8; O2SAT 98
[2020-03-09 11:25] LABS: Bedside Glucose 113 mg/dL (70-110)
[2020-03-09 13:49] VITALS: BMI 24.3
[2020-03-09 16:40] LABS: Bedside Glucose 131 mg/dL (70-110)
[2020-03-09] MEDS: Rivaroxaban 20 MG Tablet PO (17:30)
[2020-03-09 18:37] VITALS: BP 118/61; PULSE 70; RESP 16; TEMP 36.9; O2SAT 97
[2020-03-09 19:49] VITALS: PULSE 67
[2020-03-09] MEDS: Atorvastatin Calcium 40 MG Tablet PO (19:49)
[2020-03-09] MEDS: QUEtiapine 25 MG Tablet PO (19:49)
[2020-03-09 20:15] VITALS: BMI 24.3
[2020-03-09 20:50] LABS: Bedside Glucose 181 mg/dL (70-110)
[2020-03-10] MEDS: Capsaicin 0.025% 1 APPLIC Tube TOPICAL ×3 (06:47→20:23)
[2020-03-10] MEDS: glipiZIDE 10 MG Tablet 15 MG PO (06:47)
[2020-03-10] MEDS: Acetaminophen 500 MG Tablet 1000 MG PO ×3 (06:48→20:23)
[2020-03-10 07:01] LABS: Bedside Glucose 125 mg/dL (70-110)
--- NOTE | 2020-03-10 08:30 | PN_ITS ---
Patient Problems: Active and Suspected Problems Ischemic cerebrovascular accident (CVA) (Acute) MRI on 01/02/20 shows multiple areas of restricted diffusion including the anterior corpus callosum, bilateral periventricular white matter, the left thalamus, left brachium pontis and the left cerebellum. These have been attributed to multiple ischemic infarcts more likely than not due to AF. PAF (paroxysmal atrial fibrillation) (Acute) recently started on Xarelto Diabetes mellitus type 2 in nonobese (Acute) Anticoagulated by anticoagulation treatment (Acute) Xarelto - not on 15 mg BID initially...started on 20 mg daily at [facility] Subjective: Patient seen. She is exercising on stationary bicycle. Her only complaint is left knee pain, but the Capsaicin cream is helping. - Physical Exam Vitals/I&O's: Vital Signs Temp Pulse Resp BP Pulse Ox 98.4 F 67 16 118/61 97 03/09/20 18:37 03/09/20 19:49 03/09/20 18:37 03/09/20 18:37 03/09/20 18:37 Oxygen Flow Rate (L/min) 2 Oxygen Delivery Method Nasal Cannula Weight: 68.492 kg Body Mass Index (BMI) 24.3 Intake and Output for Last 24 Hours 03/08/20 03/09/20 03/10/20 23:59 23:59 23:59 Intake Total 1160 / 1160 800 / 800 Balance 1160 / 1160 800 / 800 General: Alert, Oriented x3, Cooperative HEENT: Atraumatic, PERRLA, EOMI, Normocephalic Neck: Supple, No JVD, Negative Carotid Bruits Lungs: Clear to auscultation, Normal air movement Cardiovascular: Regular rate, No murmurs Abdomen: Bowel Sounds Present, Soft, Non Tender Extremities: No edema, Capillary Refill Less than 3 Seconds Skin: No rashes, No breakdown Musculoskeletal: No Tenderness to Palpation of Joints or Extremities Neurological: Cranial nerves II-XII grossly intact Psych/Mental Status: Normal Affect, Appropriate Laboratory Results 03/09/20 11:22: POC Glucose 113 H 03/09/20 16:13: POC Glucose 131 H 03/09/20 20:47: POC Glucose 181 H 03/10/20 06:44: POC Glucose 125 H Current Medications Acetaminophen (Tylenol) 1,000 mg PO Q8 [facility] Last Admin: 03/10/20 06:48 Dose: 1,000 mg Documented by: Amlodipine Besylate (Norvasc) 2.5 mg PO DAILY [facility] Last Admin: 03/09/20 07:49 Dose: 2.5 mg Documented by: Aspirin (Aspirin, Baby) 81 mg PO DAILY@0800 [facility] Last Admin: 03/09/20 07:48 Dose: 81 mg Documented by: Atorvastatin Calcium (Lipitor) 40 mg PO QHS [facility] Last Admin: 03/09/20 19:49 Dose: 40 mg Documented by: Bisacodyl (Dulcolax) 10 mg RECTAL .PRN X 1 PRN PRN Reason: Constipation Bupropion HCl (Wellbutrin Tablets) 75 mg PO BID [facility] Last Admin: 03/09/20 19:49 Dose: 75 mg Documented by: Calamine/Phenol (Calmoseptine Ointment) 1 applic TOPICAL BID [facility]; Protocol Last Admin: 03/09/20 19:49 Dose: 1 applicatio Documented by: Capsaicin (Zostrix) 1 applic TOPICAL TID [facility]; Protocol Last Admin: 03/10/20 06:47 Dose: 1 applicatio Documented by: Estrogens Conjugated (Premarin) 1 dose VAGINAL MoTh@2200 [facility] Last Admin: 03/08/20 19:43 Dose: 1 dose Documented by: Glipizide (Glucotrol) 15 mg PO BREAKFAST@0700 [facility] Last Admin: 03/10/20 06:47 Dose: 15 mg Documented by: Sodium Chloride () 250 mls @ 15 mls/hr IV .[id number] PRN PRN Reason: Saline Flush Last Infusion: 02/23/20 14:03 Dose: Infused Documented by: Sodium Chloride () 250 mls @ 15 mls/hr IV .[id number] PRN PRN Reason: Additional IVPB Infusion Insulin Glargine (Lantus (Bkc)) 6 units SC DAILY [facility] Last Admin: 03/09/20 07:50 Dose: 6 u Documented by: Lactobacillus Acidophilus (Acidophilus) 1 tablet PO BID [facility] Last Admin: 03/09/20 19:48 Dose: 1 tablet Documented by: Lisinopril (Zestril) 10 mg PO BID [facility] Last Admin: 03/09/20 19:50 Dose: 10 mg Documented by: Magnesium Hydroxide (Milk Of Magnesia) 30 ml PO .PRN X 1 PRN PRN Reason: Constipation Metoprolol Succinate (Toprol Xl (Beta Issac)) 25 mg PO BID [facility] Last Admin: 03/09/20 19:49 Dose: 25 mg Documented by: Pantoprazole Sodium (Protonix) 40 mg PO DAILY [facility] Last Admin: 03/09/20 07:49 Dose: 40 mg Documented by: Potassium Chloride (K-Dur) 10 meq PO DAILYCM [facility] Last Admin: 03/09/20 07:48 Dose: 10 meq Documented by: Quetiapine Fumarate (Seroquel) 25 mg PO QHS [facility] Last Admin: 03/09/20 19:49 Dose: 25 mg Documented by: Rivaroxaban (Xarelto) 20 mg PO DAILY@1700 [facility] Last Admin: 03/09/20 17:30 Dose: 20 mg Documented by: Senna/Docusate Sodium (Senokot-S, Cammie-Colace) 2 tablet PO BID [facility] Last Admin: 03/09/20 11:52 Dose: Not Given Documented by: Sertraline HCl (Zoloft) 100 mg PO DAILY [facility] Last Admin: 03/09/20 07:50 Dose: 100 mg Documented by: Sodium Chloride () 10 - 40 ml IV UD PRN PRN Reason: SALINE FLUSH Last Admin: 02/29/20 16:41 Dose: 10 ml Documented by: Capacity - Capacity Assessment Tool Can the patient make a choice & communicate that choice?: Yes Can the patient understand benefits, risks and alternatives?: Yes Can the patient make a logical, rational choice?: Yes Is the choice the patient makes consistent w/ their values?: Yes Is there an impending, emergent risk to the patient?: No Does the patient have an Advance Directive?: No Is there a Surrogate Available?: Yes i.e. HCPOA: Yes i.e. close relative (spouse, child, parent, sibling)?: Yes Medical Necessity - Tobacco Use Smoking Status: Never smoker Tobacco Use: Non-smoker Assessment/Plan All Active Problems Ischemic cerebrovascular accident (CVA) (Acute) PAF (paroxysmal atrial fibrillation) (Acute) Diabetes mellitus type 2 in nonobese (Acute) Anticoagulated by anticoagulation treatment (Acute) 74 year old female with below past medical history hospitalized for stroke secondary to atrial fibrillation, admitted to for 3 hours of therapy per day. * Debility - PT/OT. * Cognition/Stroke - ST. * Pain - Tylenol 1000MG Q8H, Zostrix topical TID. * Bowel - Senna/colace 2 tablets BID, MOM 30ML PO PRN, Dulcolax 10MG daily PRN. * Hypertension - Metoprolol succinate 25MG BID, Lisinopril 10MG BID, Amlodipine 2.5MG daily. * Stroke - Aspirin 81MG, Xarelto 20MG daily. * Atrial Fibrillation - Metoprolol succinate 25MG BID, Xarelto 20MG daily. * Hyperlipidemia - Atorvastatin 40MG QHS. * Depression - Sertraline 100MG daily, Bupropion 75MG twice daily. * Atrophic Vaginitis - Premarin vaginal 2 days/week. * Diabetes Mellitus II - Glipizide 15MG daily, Lantus 6 units daily, blood sugars well controlled. * GI prophylaxis - Lactobacillus 1 tablet twice daily. * Skin irritation - Calmoseptine BID. * GERD - Pantoprazole 40MG daily. * Hypokalemia - K-Dur 10MEQ daily. * Agitation - Seroquel 25MG QHS.
[2020-03-10] MEDS: Aspirin 81 MG TAB.CHEW PO (08:32)
[2020-03-10] MEDS: buPROPion 75 MG Tablet PO ×2 (08:32→20:07)
[2020-03-10] MEDS: amLODIPine 2.5 MG Tablet PO (08:32)
[2020-03-10] MEDS: Lisinopril 10 MG Tablet PO ×2 (08:32→20:07)
[2020-03-10] MEDS: Pantoprazole Sodium 40 MG Tablet PO (08:32)
[2020-03-10] MEDS: Sertraline 100 MG Tablet PO (08:33)
[2020-03-10 08:34] VITALS: PULSE 66
[2020-03-10] MEDS: Metoprolol(XL)Succ 25 MG Tablet PO ×2 (08:34→20:08)
[2020-03-10] MEDS: Menthol/Lanolin/Calamine/Znox 113 GM Tube 1 APPLIC TOPICAL ×2 (08:43→20:12)
[2020-03-10 09:49] VITALS: BP 127/64; PULSE 64; RESP 16; TEMP 36.6; O2SAT 94
[2020-03-10 11:06] LABS: Bedside Glucose 253 mg/dL (70-110)
[2020-03-10 16:04] VITALS: BMI 24.3
[2020-03-10] MEDS: Rivaroxaban 20 MG Tablet PO (16:49)
[2020-03-10 17:56] LABS: Bedside Glucose 74 mg/dL (70-110)
[2020-03-10 19:41] VITALS: BP 139/72; PULSE 72; RESP 16; TEMP 37.2; O2SAT 95
[2020-03-10 20:00] VITALS: PULSE 72; RESP 16; O2SAT 95
[2020-03-10 20:08] VITALS: BP 136/68; PULSE 72
[2020-03-10] MEDS: QUEtiapine 25 MG Tablet PO (20:10)
[2020-03-10] MEDS: Senna/Docusate Sodium 1 Tablet 2 TABLET PO (20:10)
[2020-03-10] MEDS: Atorvastatin Calcium 40 MG Tablet PO (20:11)
[2020-03-10 20:20] VITALS: BMI 24.3
[2020-03-10 20:31] LABS: Bedside Glucose 199 mg/dL (70-110)
--- NOTE | 2020-03-11 02:29 | NURSING ---
Reviewed and agree with BRICKLAYER'S ASSISTANT Documentation and charting.
[2020-03-11] MEDS: Capsaicin 0.025% 1 APPLIC Tube TOPICAL ×3 (05:08→20:04)
[2020-03-11] MEDS: Acetaminophen 500 MG Tablet 1000 MG PO ×3 (06:54→20:04)
[2020-03-11] MEDS: glipiZIDE 10 MG Tablet 15 MG PO (06:58)
[2020-03-11 07:21] LABS: Bedside Glucose 112 mg/dL (70-110)
[2020-03-11] MEDS: Aspirin 81 MG TAB.CHEW PO (08:03)
[2020-03-11 08:04] VITALS: PULSE 62
[2020-03-11] MEDS: Metoprolol(XL)Succ 25 MG Tablet PO ×2 (08:04→20:04)
[2020-03-11] MEDS: Pantoprazole Sodium 40 MG Tablet PO (08:04)
[2020-03-11] MEDS: amLODIPine 2.5 MG Tablet PO (08:04)
[2020-03-11] MEDS: Lisinopril 10 MG Tablet PO ×2 (08:05→20:04)
[2020-03-11] MEDS: Menthol/Lanolin/Calamine/Znox 113 GM Tube 1 APPLIC TOPICAL ×2 (08:05→20:03)
[2020-03-11] MEDS: Sertraline 100 MG Tablet PO (08:05)
[2020-03-11] MEDS: buPROPion 75 MG Tablet PO ×2 (08:05→20:04)
[2020-03-11 09:08] VITALS: BP 118/70; PULSE 62; RESP 16; TEMP 36.9; O2SAT 97
[2020-03-11 09:14] VITALS: BMI 24.3
--- NOTE | 2020-03-11 09:54 | CASEMGMT ---
Social Work Spoke with dtr whom provided several SNFs to refer to. A couple did not accept pt's insurance. [facility]: [facility]. Will continue to follow as insurance update is this date. Gabriela Gomes MSW UNDERWRITING ANALYST
[2020-03-11 11:51] LABS: Bedside Glucose 96 mg/dL (70-110)
--- NOTE | 2020-03-11 15:07 | CHAPLAIN ---
Type of Pastoral Visit ___ Initial Visit _x__ Follow-up Visit ___ On-call Visit ___ General Patient Visit ___ Spiritual Assessment ___ Family Conference ___ Bereavement ___ Rapid Response ___ Code Blue ___ Other (describe below) Pastoral Care Referral From _x__ Patient ___ Family ___ Nurse ___ Physician ___ Instructor Knitting ___ Tie Carrier ___ Other (describe below) Sacrament/Intervention _x__ Active listening ___ Anointing ___ Congregational ___ Bereavement ___ Communion ___ Hannah exploration ___ ___ Life review _x__ Prayer ___ Reconciliation ___ Sacrament of Sick ___ Supportive presence ___ Wedding ___ Other (describe below) Pastoral Comments patient states she is hoping to go home and that at least can come see me now and that makes him happy;
[2020-03-11] MEDS: Rivaroxaban 20 MG Tablet PO (16:01)
[2020-03-11 16:16] LABS: Bedside Glucose 108 mg/dL (70-110)
--- NOTE | 2020-03-11 18:04 | PN_ITS ---
Patient Problems: Active and Suspected Problems Ischemic cerebrovascular accident (CVA) (Acute) MRI on 01/02/20 shows multiple areas of restricted diffusion including the anterior corpus callosum, bilateral periventricular white matter, the left thalamus, left brachium pontis and the left cerebellum. These have been attributed to multiple ischemic infarcts more likely than not due to AF. PAF (paroxysmal atrial fibrillation) (Acute) recently started on Xarelto Diabetes mellitus type 2 in nonobese (Acute) Anticoagulated by anticoagulation treatment (Acute) Xarelto - not on 15 mg BID initially...started on 20 mg daily at [facility] Subjective: Resident seen, no new complaints, medically stable. Family having difficulty with discharge to [facility] prior to home. unable to care for Zena at home. - Physical Exam Vitals/I&O's: Vital Signs Temp Pulse Resp BP Pulse Ox 98.5 F 62 16 118/70 97 03/11/20 09:08 03/11/20 09:08 03/11/20 09:08 03/11/20 09:08 03/11/20 09:08 Oxygen Flow Rate (L/min) 2 Oxygen Delivery Method Room Air Weight: 68.492 kg Body Mass Index (BMI) 24.3 Intake and Output for Last 24 Hours 03/09/20 03/10/20 03/11/20 23:59 23:59 23:59 Intake Total 800 / 800 1000 / 1000 720 / 720 Balance 800 / 800 1000 / 1000 720 / 720 General: Alert, Oriented x3, Cooperative HEENT: Atraumatic, PERRLA, EOMI, Normocephalic Neck: Supple, No JVD, Negative Carotid Bruits Lungs: Clear to auscultation, Normal air movement Cardiovascular: Regular rate, No murmurs Abdomen: Bowel Sounds Present, Soft, Non Tender Extremities: No edema, Capillary Refill Less than 3 Seconds Skin: No rashes, No breakdown Musculoskeletal: No Tenderness to Palpation of Joints or Extremities Neurological: Cranial nerves II-XII grossly intact Psych/Mental Status: Normal Affect, Appropriate Laboratory Results 03/10/20 20:26: POC Glucose 199 H 03/11/20 06:57: POC Glucose 112 H 03/11/20 11:48: POC Glucose 96 03/11/20 16:03: POC Glucose 108 Current Medications Acetaminophen (Tylenol) 1,000 mg PO Q8 [facility] Last Admin: 03/11/20 13:09 Dose: 1,000 mg Documented by: Amlodipine Besylate (Norvasc) 2.5 mg PO DAILY [facility] Last Admin: 03/11/20 08:04 Dose: 2.5 mg Documented by: Aspirin (Aspirin, Baby) 81 mg PO DAILY@0800 [facility] Last Admin: 03/11/20 08:03 Dose: 81 mg Documented by: Atorvastatin Calcium (Lipitor) 40 mg PO QHS [facility] Last Admin: 03/10/20 20:11 Dose: 40 mg Documented by: Bisacodyl (Dulcolax) 10 mg RECTAL .PRN X 1 PRN PRN Reason: Constipation Bupropion HCl (Wellbutrin Tablets) 75 mg PO BID [facility] Last Admin: 03/11/20 08:05 Dose: 75 mg Documented by: Calamine/Phenol (Calmoseptine Ointment) 1 applic TOPICAL BID [facility]; Protocol Last Admin: 03/11/20 08:05 Dose: 1 applicatio Documented by: Capsaicin (Zostrix) 1 applic TOPICAL TID [facility]; Protocol Last Admin: 03/11/20 13:09 Dose: 1 applicatio Documented by: Estrogens Conjugated (Premarin) 1 dose VAGINAL MoTh@2200 [facility] Last Admin: 03/08/20 19:43 Dose: 1 dose Documented by: Glipizide (Glucotrol) 15 mg PO BREAKFAST@0700 [facility] Last Admin: 03/11/20 06:58 Dose: 15 mg Documented by: Sodium Chloride () 250 mls @ 15 mls/hr IV .[id number] PRN PRN Reason: Saline Flush Last Infusion: 02/23/20 14:03 Dose: Infused Documented by: Sodium Chloride () 250 mls @ 15 mls/hr IV .[id number] PRN PRN Reason: Additional IVPB Infusion Lactobacillus Acidophilus (Acidophilus) 1 tablet PO BID [facility] Last Admin: 03/11/20 08:03 Dose: 1 tablet Documented by: Lisinopril (Zestril) 10 mg PO BID [facility] Last Admin: 03/11/20 08:05 Dose: 10 mg Documented by: Magnesium Hydroxide (Milk Of Magnesia) 30 ml PO .PRN X 1 PRN PRN Reason: Constipation Metoprolol Succinate (Toprol Xl (Beta Issac)) 25 mg PO BID [facility] Last Admin: 03/11/20 08:04 Dose: 25 mg Documented by: Pantoprazole Sodium (Protonix) 40 mg PO DAILY [facility] Last Admin: 03/11/20 08:04 Dose: 40 mg Documented by: Potassium Chloride (K-Dur) 10 meq PO DAILYCM [facility] Last Admin: 03/11/20 08:03 Dose: 10 meq Documented by: Quetiapine Fumarate (Seroquel) 25 mg PO QHS [facility] Last Admin: 03/10/20 20:10 Dose: 25 mg Documented by: Rivaroxaban (Xarelto) 20 mg PO DAILY@1700 [facility] Last Admin: 03/11/20 16:01 Dose: 20 mg Documented by: Senna/Docusate Sodium (Senokot-S, Cammie-Colace) 2 tablet PO BID [facility] Last Admin: 03/11/20 08:04 Dose: Not Given Documented by: Sertraline HCl (Zoloft) 100 mg PO DAILY [facility] Last Admin: 03/11/20 08:05 Dose: 100 mg Documented by: Sodium Chloride () 10 - 40 ml IV UD PRN PRN Reason: SALINE FLUSH Last Admin: 02/29/20 16:41 Dose: 10 ml Documented by: Capacity - Capacity Assessment Tool Can the patient make a choice & communicate that choice?: Unable to Determine Can the patient understand benefits, risks and alternatives?: Yes Can the patient make a logical, rational choice?: Yes Is the choice the patient makes consistent w/ their values?: Yes Is there an impending, emergent risk to the patient?: No Does the patient have an Advance Directive?: No Is there a Surrogate Available?: Yes i.e. HCPOA: Yes i.e. close relative (spouse, child, parent, sibling)?: Yes Medical Necessity - Tobacco Use Smoking Status: Never smoker Tobacco Use: Non-smoker Assessment/Plan All Active Problems Ischemic cerebrovascular accident (CVA) (Acute) PAF (paroxysmal atrial fibrillation) (Acute) Diabetes mellitus type 2 in nonobese (Acute) Anticoagulated by anticoagulation treatment (Acute) 74 year old female with below past medical history hospitalized for stroke secondary to atrial fibrillation, admitted to for 3 hours of therapy per day. * Debility - PT/OT. * Cognition/Stroke - ST. * Pain - Tylenol 1000MG Q8H, Zostrix topical TID. * Bowel - Senna/colace 2 tablets BID, MOM 30ML PO PRN, Dulcolax 10MG daily PRN. * Hypertension - Metoprolol succinate 25MG BID, Lisinopril 10MG BID, Amlodipine 2.5MG daily. * Stroke - Aspirin 81MG, Xarelto 20MG daily. * Atrial Fibrillation - Metoprolol succinate 25MG BID, Xarelto 20MG daily. * Hyperlipidemia - Atorvastatin 40MG QHS. * Depression - Sertraline 100MG daily, Bupropion 75MG twice daily. * Atrophic Vaginitis - Premarin vaginal 2 days/week. * Diabetes Mellitus II - Glipizide 15MG daily, Lantus 6 units daily, blood sugars well controlled. * GI prophylaxis - Lactobacillus 1 tablet twice daily. * Skin irritation - Calmoseptine BID. * GERD - Pantoprazole 40MG daily. * Hypokalemia - K-Dur 10MEQ daily. * Agitation - Seroquel 25MG QHS.
[2020-03-11 19:22] VITALS: BP 133/64; PULSE 68; RESP 17; TEMP 36.7; O2SAT 97
[2020-03-11] MEDS: Atorvastatin Calcium 40 MG Tablet PO (20:03)
[2020-03-11] MEDS: Estrogens,Conj. 1 Tube 1 DOSE VAGINAL (20:03)
[2020-03-11 20:04] VITALS: PULSE 68
[2020-03-11] MEDS: QUEtiapine 25 MG Tablet PO (20:04)
[2020-03-11 21:05] LABS: Bedside Glucose 179 mg/dL (70-110)
[2020-03-11 22:28] VITALS: BMI 24.3
[2020-03-12] MEDS: Capsaicin 0.025% 1 APPLIC Tube TOPICAL ×3 (05:03→20:40)
[2020-03-12] MEDS: Acetaminophen 500 MG Tablet 1000 MG PO ×3 (05:04→20:39)
[2020-03-12] MEDS: glipiZIDE 10 MG Tablet 15 MG PO (06:20)
[2020-03-12 06:26] LABS: Bedside Glucose 150 mg/dL (70-110)
[2020-03-12] MEDS: Aspirin 81 MG TAB.CHEW PO (07:38)
[2020-03-12 07:39] VITALS: PULSE 61
[2020-03-12] MEDS: buPROPion 75 MG Tablet PO ×2 (07:39→20:39)
[2020-03-12] MEDS: Metoprolol(XL)Succ 25 MG Tablet PO ×2 (07:39→20:39)
[2020-03-12] MEDS: Pantoprazole Sodium 40 MG Tablet PO (07:39)
[2020-03-12] MEDS: amLODIPine 2.5 MG Tablet PO (07:39)
[2020-03-12] MEDS: Lisinopril 10 MG Tablet PO ×2 (07:40→20:40)
[2020-03-12] MEDS: Sertraline 100 MG Tablet PO (07:40)
[2020-03-12] MEDS: Menthol/Lanolin/Calamine/Znox 113 GM Tube 1 APPLIC TOPICAL ×2 (07:41→20:54)
[2020-03-12 08:07] VITALS: BP 108/65; PULSE 61; RESP 18; TEMP 36.9; O2SAT 97
[2020-03-12 09:03] VITALS: BMI 24.3
[2020-03-12 11:55] LABS: Bedside Glucose 117 mg/dL (70-110)
[2020-03-12 15:55] LABS: Bedside Glucose 93 mg/dL (70-110)
[2020-03-12] MEDS: Rivaroxaban 20 MG Tablet PO (16:27)
[2020-03-12 20:39] VITALS: BP 123/58; PULSE 66
[2020-03-12] MEDS: Atorvastatin Calcium 40 MG Tablet PO (20:39)
[2020-03-12] MEDS: QUEtiapine 25 MG Tablet PO (20:39)
[2020-03-12 20:46] VITALS: BP 123/58; PULSE 66; RESP 16; TEMP 36.6; O2SAT 98
[2020-03-12 21:06] LABS: Bedside Glucose 130 mg/dL (70-110)
[2020-03-13 03:46] VITALS: BMI 24.3
[2020-03-13] MEDS: glipiZIDE 10 MG Tablet 15 MG PO (06:25)
[2020-03-13] MEDS: Acetaminophen 500 MG Tablet 1000 MG PO ×3 (06:25→22:39)
[2020-03-13 06:31] LABS: Bedside Glucose 138 mg/dL (70-110)
[2020-03-13] MEDS: Sertraline 100 MG Tablet PO (08:12)
[2020-03-13] MEDS: Aspirin 81 MG TAB.CHEW PO (08:13)
[2020-03-13 08:14] VITALS: PULSE 60
[2020-03-13] MEDS: Metoprolol(XL)Succ 25 MG Tablet PO ×2 (08:14→22:40)
[2020-03-13] MEDS: buPROPion 75 MG Tablet PO ×2 (08:14→22:39)
[2020-03-13] MEDS: Pantoprazole Sodium 40 MG Tablet PO (08:14)
[2020-03-13] MEDS: amLODIPine 2.5 MG Tablet PO (08:14)
[2020-03-13] MEDS: Menthol/Lanolin/Calamine/Znox 113 GM Tube 1 APPLIC TOPICAL ×2 (08:15→22:41)
[2020-03-13] MEDS: Lisinopril 10 MG Tablet PO ×2 (08:15→22:39)
[2020-03-13 08:47] VITALS: BP 115/69; PULSE 60; RESP 18; TEMP 36.7; O2SAT 97
[2020-03-13 11:20] LABS: Bedside Glucose 235 mg/dL (70-110)
[2020-03-13 13:31] VITALS: BMI 24.3
[2020-03-13] MEDS: Capsaicin 0.025% 1 APPLIC Tube TOPICAL ×2 (13:38→22:39)
[2020-03-13 16:41] LABS: Bedside Glucose 98 mg/dL (70-110)
[2020-03-13] MEDS: Rivaroxaban 20 MG Tablet PO (16:44)
[2020-03-13 19:21] VITALS: BP 145/74; PULSE 64; RESP 18; TEMP 36.8; O2SAT 98
[2020-03-13 21:20] LABS: Bedside Glucose 143 mg/dL (70-110)
[2020-03-13 22:40] VITALS: BP 145/74; PULSE 64
[2020-03-13] MEDS: Atorvastatin Calcium 40 MG Tablet PO (22:40)
[2020-03-13] MEDS: QUEtiapine 25 MG Tablet PO (22:40)
[2020-03-14] MEDS: Capsaicin 0.025% 1 APPLIC Tube TOPICAL ×3 (06:56→20:34)
[2020-03-14] MEDS: Acetaminophen 500 MG Tablet 1000 MG PO ×3 (06:57→20:31)
[2020-03-14] MEDS: glipiZIDE 10 MG Tablet 15 MG PO (07:01)
[2020-03-14 07:15] VITALS: BP 110/57; PULSE 60; RESP 16; TEMP 36.6; O2SAT 99
[2020-03-14] MEDS: Aspirin 81 MG TAB.CHEW PO (07:15)
[2020-03-14] MEDS: Pantoprazole Sodium 40 MG Tablet PO (07:15)
[2020-03-14] MEDS: Lisinopril 10 MG Tablet PO ×2 (07:15→20:31)
[2020-03-14 07:16] VITALS: PULSE 66
[2020-03-14] MEDS: buPROPion 75 MG Tablet PO ×2 (07:16→20:31)
[2020-03-14] MEDS: amLODIPine 2.5 MG Tablet PO (07:16)
[2020-03-14] MEDS: Metoprolol(XL)Succ 25 MG Tablet PO ×2 (07:16→20:31)
[2020-03-14] MEDS: Menthol/Lanolin/Calamine/Znox 113 GM Tube 1 APPLIC TOPICAL ×2 (07:16→20:33)
[2020-03-14] MEDS: Sertraline 100 MG Tablet PO (07:16)
--- NOTE | 2020-03-14 12:15 | NURSING ---
Max assist x 2 for this nurse and other nurse to perform stand pivot transfer from bed to w/c. When patient sat down in w/c she tucked her left foot behind w/c wheel. No bruising or skin issues noted, denies pain.
[2020-03-14] MEDS: Senna/Docusate Sodium 1 Tablet 2 TABLET PO ×2 (12:31→20:32)
[2020-03-14 12:57] VITALS: BMI 24.3
[2020-03-14] MEDS: Rivaroxaban 20 MG Tablet PO (16:36)
[2020-03-14 17:03] LABS: Bedside Glucose 139 mg/dL (70-110)
[2020-03-14 17:04] LABS: Bedside Glucose 162 mg/dL (70-110)
[2020-03-14 17:04] LABS: Bedside Glucose 160 mg/dL (70-110)
[2020-03-14 18:55] VITALS: BP 118/65; PULSE 64; RESP 16; TEMP 36.8; O2SAT 97
[2020-03-14 20:02] VITALS: BMI 24.3
[2020-03-14 20:31] VITALS: PULSE 64
[2020-03-14] MEDS: Atorvastatin Calcium 40 MG Tablet PO (20:32)
[2020-03-14] MEDS: QUEtiapine 25 MG Tablet PO (20:32)
[2020-03-14 22:15] LABS: Bedside Glucose 189 mg/dL (70-110)
--- NOTE | 2020-03-15 02:49 | NURSING ---
REVIEWED AND AGREE WITH DAY CARE WORKER'S FUNCTIONAL ASSESSMENT AND HANDOFF CHARTING THIS SHIFT.
[2020-03-15] MEDS: Acetaminophen 500 MG Tablet 1000 MG PO ×3 (05:09→22:20)
[2020-03-15] MEDS: Capsaicin 0.025% 1 APPLIC Tube TOPICAL ×3 (05:09→20:11)
[2020-03-15] MEDS: glipiZIDE 10 MG Tablet 15 MG PO (05:10)
[2020-03-15 06:20] LABS: Bedside Glucose 136 mg/dL (70-110)
[2020-03-15 07:37] VITALS: BP 110/64; PULSE 60; RESP 12; TEMP 36.9; O2SAT 96
[2020-03-15] MEDS: Sertraline 100 MG Tablet PO (07:55)
[2020-03-15] MEDS: Lisinopril 10 MG Tablet PO ×2 (07:55→20:09)
[2020-03-15] MEDS: amLODIPine 2.5 MG Tablet PO (07:55)
[2020-03-15] MEDS: Aspirin 81 MG TAB.CHEW PO (07:55)
[2020-03-15] MEDS: Senna/Docusate Sodium 1 Tablet 2 TABLET PO ×2 (07:55→20:09)
[2020-03-15] MEDS: Pantoprazole Sodium 40 MG Tablet PO (07:55)
[2020-03-15 07:56] VITALS: BP 110/64; PULSE 60
[2020-03-15] MEDS: Metoprolol(XL)Succ 25 MG Tablet PO ×2 (07:56→20:10)
[2020-03-15] MEDS: buPROPion 75 MG Tablet PO ×2 (07:56→20:09)
[2020-03-15] MEDS: Menthol/Lanolin/Calamine/Znox 113 GM Tube 1 APPLIC TOPICAL ×2 (08:09→20:07)
[2020-03-15 08:35] VITALS: BMI 24.3
--- NOTE | 2020-03-15 10:26 | PCM.PN.BLA ---
Progress Note Afebrile VSS Maintaining appropriate oxygen saturation on RA She is a good eater but not as good at taking fluids. She averages about 1 L daily of fluid intake. Remains incontinent of stool and urine. Discussed with nursing - no problems that need addressed. She is sleeping well and cooperative. Reviewed the PT/OT/ST notes Medication list reviewed. Blood sugar record was reviewed. Blood sugars are under good control. alert, she is peasant and cooperates with therapy however she needs a lot of cuing to start any activity Lungs - poor inspiratory effort, diminished in the bases but CTA. She is not tachypneic and she has no conversational dyspnea HRRR, no rub and no gallop abd - soft, ND, Normal BS's, no guarding with palpation, denies dysuria no ankle swelling and no calf pain no rashes and no skin breakdown Impressions 1. post stroke debility 2. not progressing in therapy recently - will check a UA to r/o UTI 3. fecal and urinary incontinence 4. DM II - well controlled 5. PAF 6. dehydration - chronic due to poor oral intake. CBC, BMP and Mag in the AM Straight cath for UA and urine culture Start Nitrofurantoin 50 mg daily for UTI prophylaxis Continue therapy Continue to encourage increased fluid intake STROKE Vital Signs/Narrative: Vital Signs Temp Pulse Resp BP Pulse Ox 03/15/20 07:56 60 110/64 03/15/20 07:37 98.4 F 60 12 110/64 96 Inpatient E&M: [id number] Subs Hosp L2
--- NOTE | 2020-03-15 10:47 | CASEMGMT ---
Social Work IDT met with patient for Team Meeting. Discussed patient's progress in therapy. Pt is mod - max x1-2 for transfers, ambulating 25 ft max x1-2 with w/c follow, max for sitting to standing, max x2 for SPT, mod for bathing, min for UE dressing, total for LE dressing. Pt is improving on strength and coordination on left arm, improving sequencing, oriented to dressing. ST continues to work on orientation, attention, left side neglect but varies. [employer] NRD 03/18 and continued stay is not guaranteed. However, pt has not made significant progress the last few weeks and IDT agreeable to DC pt to accepting SNF. [facility] pt. Left message with dtr to choose SNF and set DC date. Will continue to follow. Gabriela Gomes, BLEACH BOILER PULLER GERIATRIC SOCIAL WORK PROFESSOR
[2020-03-15 11:25] LABS: Bedside Glucose 145 mg/dL (70-110)
[2020-03-15 15:06] LABS: Mucous, Urine 0 SEEN /hpf (<or=2+); Red Blood Cells-Urine 0 SEEN /hpf (0-5)
[2020-03-15 15:07] LABS: Color, Urine Yellow (Yellow); Glucose, Dipstick Normal (Normal); Ketone-Dipstick Negative (Negative); Leukocyte Esterase-Dipstick 25 /ul (Negative); Nitrite-Dipstick Positive (Negative); Occult Blood-Urine Negative /ul (Negative); Protein-Dipstick Negative (Negative); Urine Bilirubin Dipstick Negative (Negative); Urine Clarity Sl. Cloudy (Clear); Urine Urobilinogen Normal (Normal)
[2020-03-15 15:13] LABS: Bacteria 1+ /hpf (None Seen); Squamous Epithelial Cells - UA 0-5 SEEN /hpf (5-10); White Blood Cells 0-5 SEEN /hpf (0-5)
[2020-03-15] MEDS: Rivaroxaban 20 MG Tablet PO (16:17)
[2020-03-15 16:30] LABS: Bedside Glucose 134 mg/dL (70-110)
[2020-03-15 19:22] VITALS: BP 131/59; PULSE 61; RESP 16; TEMP 36.7; O2SAT 98
[2020-03-15] MEDS: Estrogens,Conj. 1 Tube 1 DOSE VAGINAL (19:50)
[2020-03-15 19:51] VITALS: BMI 24.3
[2020-03-15] MEDS: Atorvastatin Calcium 40 MG Tablet PO (20:09)
[2020-03-15 20:10] VITALS: PULSE 65
[2020-03-15] MEDS: QUEtiapine 25 MG Tablet PO (20:10)
[2020-03-15 22:00] VITALS: RESP 16
[2020-03-15 22:41] LABS: Bedside Glucose 145 mg/dL (70-110)
[2020-03-16 05:39] LABS: Hematocrit 32.8 % (37-47); Hemoglobin 10.2 g/dL (12.0-15.0); Mean Corp Hgb Conc 31.1 g/dL (32-36); Mean Corpuscular Hgb 31.3 pg (27.0-32.0); Mean Corpuscular Volume 100.6 fL (81-99); Mean Platelet Vol. 9.6 fl (6.2-12.0); Platelet Count 366 K/mm3 (150-450); RBC Distribution Width CV 14.3 % (11.6-14.6); RBC Distribution Width SD 51.8 fl (35.1-43.9); Red Blood Count 3.26 M/mm3 (4.2-5.4); White Blood Count 9.3 K/mm3 (4.4-11.0)
[2020-03-16 05:58] LABS: Anion Gap 5 (5-15); BUN 22 mg/dL (7-18); BUN/Creat Ratio 24.9 RATIO (10-20); Calcium,Total 8.6 mg/dL (8.5-10.1); Chloride 107 mmol/L (98-107); Creatinine, Serum 0.88 mg/dL (0.55-1.02); EST Glomerular Filtration Rate 67 mL/min (>60); Est Glom Filt Rate - Afr Amer 80 mL/min (>60); Estimated Creatinine Clearance 51.23 ml/min; Glucose 122 mg/dL (74-106); Magnesium 2.2 mg/dL (1.6-2.6); Potassium 4.3 mmol/L (3.5-5.1); Sodium Level 138 mmol/L (136-145)
[2020-03-16] MEDS: Capsaicin 0.025% 1 APPLIC Tube TOPICAL ×3 (06:10→19:38)
[2020-03-16] MEDS: Acetaminophen 500 MG Tablet 1000 MG PO ×3 (06:10→21:08)
[2020-03-16] MEDS: glipiZIDE 10 MG Tablet 15 MG PO (06:13)
[2020-03-16 06:15] LABS: Bedside Glucose 146 mg/dL (70-110)
[2020-03-16 07:37] VITALS: BP 120/65; PULSE 61; RESP 16; TEMP 36.8; O2SAT 95
[2020-03-16] MEDS: Aspirin 81 MG TAB.CHEW PO (07:56)
[2020-03-16 07:57] VITALS: PULSE 61
[2020-03-16] MEDS: amLODIPine 2.5 MG Tablet PO (07:57)
[2020-03-16] MEDS: Lisinopril 10 MG Tablet PO ×2 (07:57→19:38)
[2020-03-16] MEDS: Nitrofurantoin Macrocrystals 100 MG Capsule PO (07:57)
[2020-03-16] MEDS: Metoprolol(XL)Succ 25 MG Tablet PO ×2 (07:57→19:38)
[2020-03-16] MEDS: Pantoprazole Sodium 40 MG Tablet PO (07:57)
[2020-03-16] MEDS: buPROPion 75 MG Tablet PO ×2 (07:57→19:38)
[2020-03-16] MEDS: Senna/Docusate Sodium 1 Tablet 2 TABLET PO ×2 (07:57→19:37)
[2020-03-16] MEDS: Menthol/Lanolin/Calamine/Znox 113 GM Tube 1 APPLIC TOPICAL ×2 (07:58→19:36)
[2020-03-16] MEDS: Sertraline 100 MG Tablet PO (07:58)
--- NOTE | 2020-03-16 09:12 | CASEMGMT ---
Addendum entered by Gabriela Gomes 03/16/20 15:15: w/c transport scheduled for 1 pm. Dtr notified. Addendum entered by Gabriela Gomes 03/16/20 13:01: [facility] can accept pt 03/18. 7000 completed. Faxed updated clinicals. Original Note: Social Work Spoke with pt's dtr to get decision on SNF. Dtr chose [facility] and agreeable to DC 03/18. Will schedule w/c transport. Contacted [facility] to confirm acceptance on 03/18. Will await return phone call. JONELLE PatelW
[2020-03-16 09:35] VITALS: BMI 24.3
[2020-03-16] MEDS: Rivaroxaban 20 MG Tablet PO (16:33)
--- NOTE | 2020-03-16 17:41 | PN_ITS ---
Progress Note Afebrile Vital signs stable-blood pressure is well controlled Maintaining appropriate oxygen saturation on room air Blood sugar record was reviewed. All blood sugars are under 200 and there is no hypoglycemia. All lab was personally reviewed. Hemoglobin is 10.2 which is stable. White blood cell count is 9.3 and the platelets are within normal limits. Creatinine is stable at 0.88 with a BUN of 22. Potassium is 4.3 and the magnesium is normal at 2.2. Calcium is within normal limits. The straight cath urine on 03/15/2020 showed 0-5 WBCs and 1+ bacteria. Preliminary on the urine culture is a gram negative antonina lactose behavioral technician-25,000-50,000 colonies. She was started on prophylactic Nitrofurantoin on 03/15....50 mg once daily. She is not currently sick and has no sx.......minimal WBC's in the UA. I suspect she may be colonized due to chronic urine and stool incontinence. Alert, cooperative Lungs - CTA HRRR...I have not found her to be in AF at any time during her stay in Rehab abd - soft, no guarding with palpation of the suprapubic area no edema Impressions 1. post stroke debility - no longer progressing in rehab. No infections or significant ELYTE imbalance that would cause this. She continually has an increased BUN/CREAT ratio due to decreased fluid intake and requires constant encouragement to drink fluids. Nursing and therapist offer water frequently during the day. 2. 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 Will continue the prophylactic Nitrofurantoin Likely needs to be transferred to an SNF or ECF for further care.......she has not progressed in the past 1-2 weeks Inpatient E&M: [id number] Subs Hosp L2
[2020-03-16 19:19] VITALS: BP 113/74; PULSE 71; RESP 16; TEMP 36.8; O2SAT 92
[2020-03-16 19:32] VITALS: BMI 24.3
[2020-03-16] MEDS: QUEtiapine 25 MG Tablet PO (19:37)
[2020-03-16] MEDS: Atorvastatin Calcium 40 MG Tablet PO (19:37)
[2020-03-16 19:38] VITALS: PULSE 68
[2020-03-16 20:32] VITALS: RESP 16
[2020-03-17] MEDS: Acetaminophen 500 MG Tablet 1000 MG PO ×3 (06:56→21:13)
[2020-03-17] MEDS: glipiZIDE 10 MG Tablet 15 MG PO (06:57)
[2020-03-17] MEDS: Capsaicin 0.025% 1 APPLIC Tube TOPICAL ×3 (06:57→21:12)
[2020-03-17] MEDS: Menthol/Lanolin/Calamine/Znox 113 GM Tube 1 APPLIC TOPICAL ×2 (09:00→21:14)
[2020-03-17] MEDS: Aspirin 81 MG TAB.CHEW PO (09:00)
[2020-03-17] MEDS: Nitrofurantoin Macrocrystals 100 MG Capsule PO (09:00)
[2020-03-17 09:01] VITALS: PULSE 67
[2020-03-17] MEDS: amLODIPine 2.5 MG Tablet PO (09:01)
[2020-03-17] MEDS: buPROPion 75 MG Tablet PO ×2 (09:01→21:12)
[2020-03-17] MEDS: Senna/Docusate Sodium 1 Tablet 2 TABLET PO (09:01)
[2020-03-17] MEDS: Pantoprazole Sodium 40 MG Tablet PO (09:01)
[2020-03-17] MEDS: Metoprolol(XL)Succ 25 MG Tablet PO ×2 (09:01→21:13)
[2020-03-17] MEDS: Lisinopril 10 MG Tablet PO ×2 (09:02→21:12)
[2020-03-17] MEDS: Sertraline 100 MG Tablet PO (09:02)
[2020-03-17 09:50] VITALS: BP 113/67; PULSE 67; RESP 16; TEMP 36.9; O2SAT 95
[2020-03-17 12:09] VITALS: BMI 24.3
[2020-03-17] MEDS: Rivaroxaban 20 MG Tablet PO (16:59)
[2020-03-17 17:05] LABS: Bedside Glucose 111 mg/dL (70-110)
[2020-03-17 20:11] VITALS: BP 130/71; PULSE 75; RESP 14; TEMP 36.6; O2SAT 96
[2020-03-17 21:13] VITALS: BP 130/71; PULSE 75
[2020-03-17] MEDS: QUEtiapine 25 MG Tablet PO (21:13)
[2020-03-17] MEDS: Atorvastatin Calcium 40 MG Tablet PO (21:14)
[2020-03-18] MEDS: Capsaicin 0.025% 1 APPLIC Tube TOPICAL (05:39)
[2020-03-18] MEDS: Acetaminophen 500 MG Tablet 1000 MG PO (05:40)
[2020-03-18] MEDS: glipiZIDE 10 MG Tablet 15 MG PO (05:40)
[2020-03-18 05:56] LABS: Bedside Glucose 125 mg/dL (70-110)
--- NOTE | 2020-03-18 06:36 | TREXTCAR_ITS ---
- Diet 02/03/20 12:42 Diet: Cardiac: Calorie-Controlled Food consistency:: Mechanical Soft/Ground Liquid Consistency:: Regular/Thin Is pt able to select menu?: Yes Diet Comments: Direct supervision, check for pocketing How many daily calories?: 1600 calorie - Routine Orders/Code Status Enema Type: Fleetz Enema Frequency: Daily PRN Suppository Type: Dulcolax 10mg Suppository Frequency: Daily PRN O2 Liters per Minute: 2 L O2 Frequency: anytime she is sleeping Routine Lab Work: - - CBC,BMP, mag in 1 week Code Status: Full Code - Wound(s) rt distal thigh Wound Type: Abrasion - Therapies Weight Bearing: Full weight bearing Extremity Affected:: L leg> L arm Physical Therapy: Eval and Treat Occupational Therapy: Eval and Treat Speech Therapy: Eval and Treat - Problem/Diagnosis (1) Ischemic cerebrovascular accident (CVA) Status: Acute Comment: MRI on 01/02/20 shows multiple areas of restricted diffusion including the anterior corpus callosum, bilateral periventricular white matter, the left thalamus, left brachium pontis and the left cerebellum. These have been attributed to multiple ischemic infarcts more likely than not due to AF. Current Visit: Yes (2) PAF (paroxysmal atrial fibrillation) Status: Acute Comment: on Xarelto Current Visit: Yes (3) Hyperlipidemia Status: Chronic Comment: LDL is 185 on lab at [facility] - she lists rosuvastatin as an allergy but cannot tell us the reaction. She has multiple allergies with unsure of reaction listed. Current Visit: Yes (4) Diabetes mellitus type 2 in nonobese Status: Chronic Current Visit: Yes (5) Anticoagulated by anticoagulation treatment Status: Acute Comment: Xarelto Current Visit: Yes (6) Hypertension Status: Chronic Current Visit: Yes (7) History of esophagitis Status: Chronic Comment: Had EGD in August and September 2008 pain Current Visit: Yes (8) Heme + stool Status: Acute Current Visit: Yes (9) Depression Status: Acute Current Visit: Yes (10) Left hemiparesis Status: Acute Comment: Left Leg>left arm Current Visit: Yes (11) Left-sided neglect Status: Acute Current Visit: Yes (12) Cognitive dysfunction Status: Acute Current Visit: Yes (13) Encephalopathy Status: Resolved Comment: due to UTI Current Visit: Yes (14) Sleep-disordered breathing Status: Chronic Comment: abnormal overnight trending pulse ox Current Visit: Yes (15) Urinary and fecal incontinence Status: Chronic Current Visit: Yes (16) UTI (urinary tract infection) Status: Resolved Comment: 2 UTI's while in rehab due to E. Coli which was pansensitive Current Visit: Yes (17) Atrophic vaginitis Status: Chronic Current Visit: Yes (18) Anemia due to blood loss Status: Acute Current Visit: Yes (19) Dehydration Status: Chronic Current Visit: Yes (20) Low density lipoprotein (LDL) below 100mg/dL Status: Chronic Current Visit: Yes (21) Need for prophylaxis against urinary tract infection Status: Acute Comment: colonized with E. Coli due to chronic fecal and urine incontinence......started on Nitrofurantoin on 03/16/20 Current Visit: Yes (22) Acute sphenoidal sinusitis Status: Resolved Comment: R side Current Visit: Yes - Allergies/Procedures Done in Hospital Allergies/Adverse Reactions: Allergies meperidine [From Demerol] Adverse Reaction (Mild, Verified 01/15/20 17:38) PT UNSURE OF REACTION dizzy caffeine Adverse Reaction (Verified 01/15/20 17:38) PT UNSURE OF REACTION chocolate flavor Adverse Reaction (Verified 01/15/20 17:38) PT UNSURE OF REACTION diphenhydramine [From Benadryl] Adverse Reaction (Verified 01/15/20 17:38) PT UNSURE OF REACTION Dizzy pioglitazone Adverse Reaction (Verified 01/15/20 17:38) PT UNSURE OF REACTION rosuvastatin Adverse Reaction (Verified 01/15/20 17:38) PT UNSURE OF REACTION Sulfa (Sulfonamide Antibiotics) Adverse Reaction (Verified 01/15/20 17:38) Nausea pablo tomatoes Adverse Reaction (Uncoded 01/15/20 17:38) PT UNSURE OF REACTION msg Adverse Reaction (Uncoded 01/15/20 17:38) PT UNSURE OF REACTION Procedures: - - overnight trending pulse ox - Type of Care/Length of Stay Estimated LOS: More Than 30 Days Type of Care Needed: Intermediate Rehab Potential: Fair Prognosis: Fair - Additional Orders/Day of Discharge Additional Orders: 1. Zena needs to have a sleep study. 2. Her last UA showed no pyuria and she has been AF and asymptomatic. The culture grew E. Coli and I suspect she is colonized with E. Coli in the bladder. She has been started on Nitrofurantoin for prophylaxis for UTI. Suggest 3 months of treatment and then DC. 3. BS's have all been under 200 and she has had no hypoglycemia. BP has been well controlled. 4. She has heme+ stool and was started on Protonix. If the stool continues to be positive may need endoscopy. 5. Zena likes to cook and braid hair and do household types of activities in OT........she is best engaged when doing these types of activity. She is very sweet and always pleasant. She needs a lot of cuing to motivate her to get moving....she can not motivate herself. 6. She is chronically dehydrated and needs alot of encouragement to increase fluid intake. She does better if you offer a small glass of water and not a large cup. If you put it in front of her she will drink it but, she will not drink if not encouraged to do so. H&P will serve as current which was dated: 01/15/20 Day of Discharge: 03/18/20 - Dietary and Speech Recommendations Dietitian Recommendations/Changes: Continue 1600 calorie/Cardiac diet- consistency per [employer] as ordered and will increase 120 ml glucerna shake from 1 time per day with breakfast to 2 times per day with breakfast & dinner. Speech Linguistic Eval Summary: Informal cognitive-linguistic assessment completed on this date. Repetition: Word ? 10. Sentences ? 8/10. Naming: Confrontational (pictures) ? /10. Confrontational (objects) ? /10. Generative naming (concrete) ? 0 animals in 1 minute (given mod category cues, she named 6). Auditory Comprehension: Following simple 1-step directions ? 85% acc. Orientation: Self +. +. Age ?. Month ?. Year ?. Time +. Place ?. Memory: Immediate recall of 5 words ? 4/5. 5-minute delay ? 0/5. Problem Solving: Basic safety scenarios ? 50% acc - Follow Up Care
--- NOTE | 2020-03-18 07:10 | PCM.DC.SUM ---
Discharge Date and Diagnosis - Problem List Patient Problems: Active and Suspected Problems Ischemic cerebrovascular accident (CVA) (Acute) MRI on 01/02/20 shows multiple areas of restricted diffusion including the anterior corpus callosum, bilateral periventricular white matter, the left thalamus, left brachium pontis and the left cerebellum. These have been attributed to multiple ischemic infarcts more likely than not due to AF. PAF (paroxysmal atrial fibrillation) (Acute) on Xarelto Anticoagulated by anticoagulation treatment (Acute) Xarelto Heme + stool (Acute) Depression (Acute) Left hemiparesis (Acute) Left Leg>left arm Left-sided neglect (Acute) Cognitive dysfunction (Acute) Anemia due to blood loss (Acute) Need for prophylaxis against urinary tract infection (Acute) colonized with E. Coli due to chronic fecal and urine incontinence......started on Nitrofurantoin on 03/16/20 Date of Admission: 01/15/20 Date of Discharge: 03/18/20 - Primary Discharge Diagnosis Acute Problems: Active Problems Ischemic cerebrovascular accident (CVA) (Acute) MRI on 01/02/20 shows multiple areas of restricted diffusion including the anterior corpus callosum, bilateral periventricular white matter, the left thalamus, left brachium pontis and the left cerebellum. These have been attributed to multiple ischemic infarcts more likely than not due to AF. PAF (paroxysmal atrial fibrillation) (Acute) Anticoagulated by anticoagulation treatment (Acute) started on Xarelto Heme + stool (Acute) Depression (Acute) Left hemiparesis (Acute) Left Leg>left arm Left-sided neglect (Acute) Cognitive dysfunction (Acute) - due to multiple BL lacunar infarcts due to AF Anemia due to blood loss (Acute) - heme + stool UTI's X 2 due to a larios sensitive E. Coli - resolved R sphenoid sinusitis - resolved Dehydration Acute encephalopathy on chronic cognitive dysfunction due to UTI and acute R sphenoid sinusitis Need for prophylaxis against urinary tract infection (Acute) colonized with E. Coli due to chronic fecal and urine incontinence......started on Nitrofurantoin on 03/16/20 Suspected Problems: Sleep apnea - she had an abnormal overnight trending pulse ox - Secondary Discharge Diagnosis Chronic Problems: Chronic Problems Hyperlipidemia (Chronic) LDL was 185 on lab at [facility]. She was started on Atorvastatin with no adverse reactions and her last Lipid panel showed an LDL of 55 and an HDL of 38. Diabetes mellitus type 2 in nonobese (Chronic) Hypertension (Chronic) History of esophagitis (Chronic) Had EGD in August and September 2008 Sleep-disordered breathing (Chronic) abnormal overnight trending pulse ox Urinary and fecal incontinence (Chronic) Atrophic vaginitis (Chronic) Dehydration (Chronic) HDL less than 40 Hospital Course and Treatment Imaging Results: Clinical Impression(s) from Imaging Studies Brain CT 01/16/20 12:16 IMPRESSION: 1. Chronic involutional and ischemic changes of the brain, as described. No acute intracranial pathology. 2. Retained mucus in the posterior right sphenoid sinus. Electronically Signed: Jesus Fernandez MD at 14:50 EDT , Service support , Brain CT 02/13/20 14:10 IMPRESSION: Chronic involutional changes of the brain. Stable examination. Electronically Signed: Deion Alvarado at 14:35 EDT , Service support , Hip/Pelvis X-Ray 02/13/20 14:15 IMPRESSION: No acute abnormality is seen. Electronically Signed: Deion Alvarado at 14:59 EDT , Service support , Brain CT 02/18/20 11:19 IMPRESSION: Chronic involutional changes of the brain. Acute right sphenoid sinusitis per Electronically Signed: Sonny Hill MD at 12:02 EDT Tel , Service support , Laboratory Last Values WBC 9.3 K/mm3 (4.4-11.0) 03/16/20 05:26 RBC 3.26 M/mm3 (4.2-5.4) L 03/16/20 05:26 Hgb 10.2 g/dL (12.0-15.0) L 03/16/20 05:26 Hct 32.8 % (37-47) L 03/16/20 05:26 MCV 100.6 fL (81-99) H 03/16/20 05:26 MCH 31.3 pg (27.0-32.0) 03/16/20 05:26 MCHC 31.1 g/dL (32-36) L 03/16/20 05:26 RDW Std Deviation 51.8 fl (35.1-43.9) H 03/16/20 05:26 RDW Coeff of Marizol 14.3 % (11.6-14.6) 03/16/20 05:26 Plt Count 366 K/mm3 (150-450) 03/16/20 05:26 MPV 9.6 fl (6.2-12.0) 03/16/20 05:26 Immature Gran % (Auto) 0.500 % (0.0-0.9) 02/18/20 12:30 Neut % (Auto) 65.3 % (47-70) 02/18/20 12:30 Lymph % (Auto) 25.9 % (19-41) 02/18/20 12:30 Rush % (Auto) 5.7 % (0-10) 02/18/20 12:30 Eos % (Auto) 1.9 % (0-5) 02/18/20 12:30 Baso % (Auto) 0.7 % (0-1) 02/18/20 12:30 Absolute Neuts (auto) 5.7 X10^3/uL (2.0-7.7) 02/18/20 12:30 Absolute Lymphs (auto) 2.26 X10^3/uL (0.83-4.51) 02/18/20 12:30 Nucleated RBC % 0 % (0-5) 02/18/20 12:30 Sodium 138 mmol/L (136-145) 03/16/20 05:26 Potassium 4.3 mmol/L (3.5-5.1) 03/16/20 05:26 Chloride 107 mmol/L (98-107) 03/16/20 05:26 Carbon Dioxide 26.0 mmol/L (21.0-32.0) 03/16/20 05:26 Anion Gap 5 (5-15) 03/16/20 05:26 BUN 22 mg/dL (7-18) H 03/16/20 05:26 Creatinine 0.88 mg/dL (0.55-1.02) 03/16/20 05:26 Estim Creat Clear Calc 51.23 ml/min 03/16/20 05:26 Est GFR (MDRD) Af Amer 80 mL/min (>60) 03/16/20 05:26 Est GFR (MDRD) Non-Af 67 mL/min (>60) 03/16/20 05:26 BUN/Creatinine Ratio 24.9 RATIO (10-20) H 03/16/20 05:26 Glucose 122 mg/dL (74-106) H 03/16/20 05:26 Hemoglobin A1c 7.1 % (3.8-5.6) H 01/16/20 05:49 Calcium 8.6 mg/dL (8.5-10.1) 03/16/20 05:26 Phosphorus 3.7 mg/dL (2.5-4.9) 01/16/20 05:49 Magnesium 2.2 mg/dL (1.6-2.6) 03/16/20 05:26 Total Bilirubin 0.70 mg/dL (0.20-1.00) 02/15/20 06:56 AST 15 U/L (15-37) 02/15/20 06:56 ALT 29 U/L (13-56) 02/15/20 06:56 Alkaline Phosphatase 47 U/L (45-117) 02/15/20 06:56 Total Protein 6.5 g/dL (6.4-8.2) 02/15/20 06:56 Albumin 3.1 g/dL (3.2-5.0) L 02/15/20 06:56 Globulin 3.4 g/dL (2.2-4.2) 02/15/20 06:56 Albumin/Globulin Ratio 0.9 RATIO (0.9-2.4) 02/15/20 06:56 Triglycerides 168 mg/dL (-199) 02/15/20 06:56 Cholesterol 127 mg/dL (200) 02/15/20 06:56 LDL Cholesterol 55 mg/dL (0-130) 02/15/20 06:56 VLDL Cholesterol 34 mg/dL (5-40) 02/15/20 06:56 HDL Cholesterol 38 mg/dL (40-) L 02/15/20 06:56 TSH 2.34 uIU/mL (0.358-3.74) 01/16/20 05:49 Urine Color Yellow (Yellow) 03/15/20 15:05 Urine Clarity Sl. Cloudy (Clear) 03/15/20 15:05 Urine pH 5.0 (5.0 - 8.0) 03/15/20 15:05 Ur Specific [place] 1.020 (1.002-1.030) 03/15/20 15:05 Urine Protein Negative mg/dl (Negative) 03/15/20 15:05 Urine Glucose (UA) Normal mg/dl (Normal) 03/15/20 15:05 Urine Ketones Negative mg/dl (Negative) 03/15/20 15:05 Urine Occult Blood Negative /ul (Negative) 03/15/20 15:05 Urine Nitrite Positive (Negative) H 03/15/20 15:05 Urine Bilirubin Negative mg/dL (Negative) 03/15/20 15:05 Urine Urobilinogen Normal mg/dl (Normal) 03/15/20 15:05 Ur Leukocyte Esterase 25 /ul (Negative) H 03/15/20 15:05 Urine RBC 0 SEEN /hpf (0-5) 03/15/20 15:05 Urine WBC 0-5 SEEN /hpf (0-5) 03/15/20 15:05 Ur Squamous Epith Cells 0-5 SEEN /hpf (5-10) 03/15/20 15:05 Urine Bacteria 1+ /hpf (None Seen) 03/15/20 15:05 Urine Mucus 0 SEEN /hpf (<or=2+) 03/15/20 15:05 Vancomycin Trough 9.3 ug/mL (5.0-15.0) 02/22/20 03:27 MRSA (PCR) Negative (Negative) 02/20/20 15:20 POC Glucose 125 mg/dL (70-110) H 03/18/20 05:33 Microbiology 03/15/20 11:00 Urine Catheter - Catheter Urine Culture - Final Escherichia coli 03/01/20 12:00 Urine Catheter - Catheter Urine Culture - Final Culture exhibits no growth. 02/18/20 14:20 Aspirate - Nose Gram Stain - Final 02/18/20 14:20 Aspirate - Nose Nasopharyngeal Culture - Final Staphylococcus aureus 02/18/20 14:20 Urine, Catheterized Urine Culture - Final Presumptive E. coli 02/16/20 20:10 Stool Stool Occult Blood (JAZMÍN) - Final Occult Blood Positive 02/02/20 10:11 Urine, Catheterized Urine Culture - Final Culture exhibits no growth. 01/16/20 09:25 Urine, Catheterized Urine Culture - Final Presumptive E. 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 She had started having slurred speech approximately 6 months prior to developing R side weakness for which she was admitted to [facility] on 01/01/20. A noncontrasted brain CT on 01/01/2020 showed no acute intracranial abnormality but, did show remote lacunar infarcts in the bilateral periventricular white matter. An echocardiogram revealed a normal ejection fraction with no significant valvular heart disease. There was no interatrial shunt. Bilateral carotid duplex showed no significant carotid stenosis. An MRI of the brain showed multifocal areas of vague T2 prolongation and restricted diffusion in the anterior corpus callosum, the bilateral periventricular white matter, the left thalamus, the left brachium pontis and the left cerebellum. She was started on Xarelto for PAF. She was transferred to the IPRU at [facility] on 01/15/20 for > 3 hours of therapy daily to restore her at or near to her prior level of functioning. Prior to the CVA's she was independent at home and in the community with no AD. She did the laundry and the cooking and other histology aide. She was employed as a haircutter in the past. She lives in a 2 story house with her . The bedroom is on the second floor. There is also a basement. Zena was quite depressed when she first came to rehab and she was started on Sertraline which she tolerated well. The dose was gradually increased to 100 mg daily and she is currently pleasant, upbeat, cooperative, sleeping well, eating well and participating willingly in therapy. She is incontinent of urine and stool and had 2 UTI's while on rehab. Both were due to a pansensitive E.Coli and she was treated with antibiotics. She also had acute R sphenoid sinusitis and this too was treated with antibiotics and resolved. A random straight cath UA was done a few days prior to DC and showed 0-5 WBCs and +1 bacteria. She was afebrile and asymptomatic. The culture grew 25,000-50,000 colonies of a pansensitive E. coli. The first 2 UTI's were associated with acute encephalopathy but, the pt is currently asymptomatic. She was started on Nitrofurantoin 50 mg daily for prophylaxis for UTI. I suspect that she is colonized with E. Coli and recommend continuing the prophylactic Nitrofurantoin for 3 month and then consider discontinuing. She does not retain urine. Zena has improved with therapy but, progress is slow. On 03/17 she was able to advance both LE's with ambulation. She is still max assist for transfers and sit to stand. She requires constant cuing to do any activity. She has a lot of difficulty maintaining an upright posture when sitting and standing and she slouches to the left and retro leans. She needs to be motivated to complete any activity and requires constant cuing on what to do next. She is easily distracted and continues to have L side neglect. The Left UE is much more functional than at admission to rehab. The left leg is still very weak but, she has now started to advance the LLE with ambulation without the therapist having to advance it for her. She has plateaued with therapy in the inpt acute rehab unit and she is being transferred to on 03/18/20 to a SNF to continue therapy prior to hopefully returning home some day in the future. All blood sugars prior to DC are less than 200 and she has had no hypoglycemia. BP is well controlled. Lab shows an elevated BUN/CREAT ratio chronically and she needs constant reminders to drink water. She eats very well. She had heme + stool while in the rehab unit and she was started on Protonix. Her HGB is currently 10.2 and has gradually drifted down. She has had a hx of esophagitis in the past. Neither Zena or her family could tell me when the last time she had a colonoscopy or EGD in the past. She may need to have endoscopy if the HGB continues to decline on Protonix. She had an overnight trending pulse ox at admission to rehab and we have been keeping her on 2 LPM anytime she is sleeping. She is sleeping well and is much more alert during the day now. She will need to have a formal sleep study going forward to see if she would benefit from PAP therapy. She will have a 30 day event monitor going forward to look for AF. A prescription was written and the monitor will be mailed to her who will bring it to the nursing facility to be applied. Alert, pleasant, NAD Lungs - diminished in the bases but, CTA H - RRR, no gallop.......she has never been in AF anytime I examined her in the 2 months she has been on the rehab unit abd - soft with normal BS's no ankle edema no calf tenderness no rashes and no breakdown The LUE is 4/5 strength and she initiates using the Left arm without cuing. The left leg is 1/5 for me at DC This note was generated with [employer] dictation software. It may contain incorrect words, spelling, and punctuation that were not noted in checking the note before signing. Patient Problems: Active and Suspected Problems Ischemic cerebrovascular accident (CVA) (Acute) MRI on 01/02/20 shows multiple areas of restricted diffusion including the anterior corpus callosum, bilateral periventricular white matter, the left thalamus, left brachium pontis and the left cerebellum. These have been attributed to multiple ischemic infarcts more likely than not due to AF. PAF (paroxysmal atrial fibrillation) (Acute) on Xarelto Anticoagulated by anticoagulation treatment (Acute) Xarelto Heme + stool (Acute) Depression (Acute) Left hemiparesis (Acute) Left Leg>left arm Left-sided neglect (Acute) Cognitive dysfunction (Acute) Anemia due to blood loss (Acute) Need for prophylaxis against urinary tract infection (Acute) colonized with E. Coli due to chronic fecal and urine incontinence......started on Nitrofurantoin on 03/16/20 - Physical Exam Vitals/I&O's: Vital Signs Temp Pulse Resp BP Pulse Ox 98 F 75 14 130/71 H 96 03/17/20 20:11 03/17/20 21:13 03/17/20 20:11 03/17/20 21:13 03/17/20 20:11 Oxygen Flow Rate (L/min) 2 Oxygen Delivery Method Room Air Weight: 152 lb 9.6 oz Body Mass Index (BMI) 24.3 Intake and Output for Last 24 Hours 03/16/20 03/17/20 03/18/20 23:59 23:59 23:59 Intake Total 1120 / 1120 720 / 720 Balance 1120 / 1120 720 / 720 Microbiology Past 72 Hours 03/15/20 11:00 Urine Catheter - Catheter Urine Culture - Final Escherichia coli Laboratory Results 03/17/20 17:00: POC Glucose 111 H 03/18/20 05:33: POC Glucose 125 H Current Medications Acetaminophen (Tylenol) 1,000 mg PO Q8 [facility] Last Admin: 03/18/20 05:40 Dose: 1,000 mg Documented by: Amlodipine Besylate (Norvasc) 2.5 mg PO DAILY [facility] Last Admin: 03/17/20 09:01 Dose: 2.5 mg Documented by: Aspirin (Aspirin, Baby) 81 mg PO DAILY@0800 [facility] Last Admin: 03/17/20 09:00 Dose: 81 mg Documented by: Atorvastatin Calcium (Lipitor) 40 mg PO QHS [facility] Last Admin: 03/17/20 21:14 Dose: 40 mg Documented by: Bisacodyl (Dulcolax) 10 mg RECTAL .PRN X 1 PRN PRN Reason: Constipation Bupropion HCl (Wellbutrin Tablets) 75 mg PO BID [facility] Last Admin: 03/17/20 21:12 Dose: 75 mg Documented by: Calamine/Phenol (Calmoseptine Ointment) 1 applic TOPICAL BID [facility]; Protocol Last Admin: 03/17/20 21:14 Dose: 1 applicatio Documented by: Capsaicin (Zostrix) 1 applic TOPICAL TID [facility]; Protocol Last Admin: 03/18/20 05:39 Dose: 1 applicatio Documented by: Estrogens Conjugated (Premarin) 1 dose VAGINAL MoTh@2200 [facility] Last Admin: 03/15/20 19:50 Dose: 1 dose Documented by: Glipizide (Glucotrol) 15 mg PO BREAKFAST@0700 [facility] Last Admin: 03/18/20 05:40 Dose: 15 mg Documented by: Sodium Chloride () 250 mls @ 15 mls/hr IV .[id number] PRN PRN Reason: Saline Flush Last Infusion: 02/23/20 14:03 Dose: Infused Documented by: Sodium Chloride () 250 mls @ 15 mls/hr IV .[id number] PRN PRN Reason: Additional IVPB Infusion Lactobacillus Acidophilus (Acidophilus) 1 tablet PO BID [facility] Last Admin: 03/17/20 21:14 Dose: 1 tablet Documented by: Lisinopril (Zestril) 10 mg PO BID [facility] Last Admin: 03/17/20 21:12 Dose: 10 mg Documented by: Magnesium Hydroxide (Milk Of Magnesia) 30 ml PO .PRN X 1 PRN PRN Reason: Constipation Metoprolol Succinate (Toprol Xl (Beta Issac)) 25 mg PO BID [facility] Last Admin: 03/17/20 21:13 Dose: 25 mg Documented by: [facility]in [facility] Admin: 03/17/20 09:00 Dose: 100 mg Documented by: Pantoprazole Sodium (Protonix) 40 mg PO DAILY [facility] Last Admin: 03/17/20 09:01 Dose: 40 mg Documented by: Potassium Chloride (K-Dur) [facility] Admin: 03/17/20 09:00 Dose: 10 meq Documented by: Quetiapine Fumarate (Seroquel) 25 mg PO QHS [facility] Last Admin: 03/17/20 21:13 Dose: 25 mg Documented by: Rivaroxaban (Xarelto) 20 mg PO DAILY@1700 [facility] Last Admin: 03/17/20 16:59 Dose: 20 mg Documented by: Senna/Docusate Sodium (Senokot-S, Cammie-Colace) 2 tablet PO BID [facility] Last Admin: 03/17/20 21:14 Dose: Not Given Documented by: Sertraline HCl (Zoloft) 100 mg PO DAILY [facility] Last Admin: 03/17/20 09:02 Dose: 100 mg Documented by: Sodium Chloride () 10 - 40 ml IV UD PRN PRN Reason: SALINE FLUSH Last Admin: 02/29/20 16:41 Dose: 10 ml Documented by: Home Medications: Medications to take at Discharge Aspirin [Aspirin, Baby] 81 mg PO DAILY@0800 01/15/20 Pantoprazole Sodium [Protonix] 40 mg PO DAILY 01/15/20 Rivaroxaban [Xarelto] 20 mg PO DAILY@1700 01/15/20 Acetaminophen [Tylenol] 1,000 mg PO Q8H PRN tab 03/18/20 Amlodipine [Norvasc] 2.5 mg PO DAILY tab 03/18/20 Atorvastatin Calcium [Lipitor] 40 mg PO QHS tab 03/18/20 Bisacodyl [Dulcolax] 10 mg RECTAL .PRN X 1 PRN suppos. 03/18/20 Estrogens, Conjugated [Premarin] 1 dose VAGINAL MoTh@2200 tube 03/18/20 Lactobacillus Acidophilus [Acidophilus] 1 tab PO BID tab 03/18/20 Lisinopril [Zestril] 10 mg PO BID tab 03/18/20 Magnesium Hydroxide [Milk Of Magnesia] 30 ml PO .PRN X 1 PRN udc 03/18/20 Menthol/Lanolin/Calamine/Znox [Calmoseptine Ointment] 1 applic TOPICAL BID tube 03/18/20 Metoprolol(XL)Succ [Toprol Xl (Beta Issac)] 25 mg PO BID tab 03/18/20 Nitrofurantoin Macrocrystal [Macrodantin] 50 mg PO DAILY #1 cap 03/18/20 Pantoprazole Sodium [Protonix] 40 mg PO DAILY tab 03/18/20 Potassium Chloride [K-Dur] 10 meq PO DAILYCM tab 03/18/20 Quetiapine Fumarate [Seroquel] 25 mg PO QHS tab 03/18/20 Senna/Docusate Sodium [Senokot-S] 2 tab PO BID tab 03/18/20 Sertraline HCl [Zoloft] 100 mg PO DAILY tab 03/18/20 buPROPion tablets [Wellbutrin tablets] 75 mg PO BID tab 03/18/20 glipiZIDE [Glucotrol] 15 mg PO BREAKFAST@0700 tab 03/18/20 Following Prescrptions Were Given to Patient: Nitrofurantoin Macrocrystal [Macrodantin] 50 mg PO DAILY #1 cap Disposition: [facility]irement facility [facility] Minutes spent on discharge:: 50 Patient Condition:: Stable Medical Necessity - Tobacco Use Smoking Status: Never smoker Tobacco Use: Non-smoker Meaningful Use Info Meaningful Use Diagnoses (Choose all that apply): Ischemic CVA - CVA Therapy Assessed for PT,OT and/or ST?: Yes - Ischemic Stroke Antithrombotic order at d/c?: Yes Dx of Atrial fib/flutter?: Yes Anticoagulant at discharge?: Yes Statins at discharge?: Yes Primary Dx Acute Ischemic CVA?: Yes IV tPA ordered during stay?: No Reason IV t-PA not ordered: Treatment not Indicated - pt admitted to acute inpt rehab at [facility] 2 weeks after CVA resulting in R side weakness Inpatient E&M: [id number] Disch Hosp
[2020-03-18] MEDS: Nitrofurantoin Macrocrystals 100 MG Capsule PO (07:40)
[2020-03-18] MEDS: amLODIPine 2.5 MG Tablet PO (07:40)
[2020-03-18] MEDS: Aspirin 81 MG TAB.CHEW PO (07:40)
[2020-03-18 07:41] VITALS: PULSE 62
[2020-03-18] MEDS: buPROPion 75 MG Tablet PO (07:41)
[2020-03-18] MEDS: Lisinopril 10 MG Tablet PO (07:41)
[2020-03-18] MEDS: Metoprolol(XL)Succ 25 MG Tablet PO (07:41)
[2020-03-18] MEDS: Pantoprazole Sodium 40 MG Tablet PO (07:41)
[2020-03-18] MEDS: Sertraline 100 MG Tablet PO (07:41)
[2020-03-18] MEDS: Menthol/Lanolin/Calamine/Znox 113 GM Tube 1 APPLIC TOPICAL (07:42)
[2020-03-18 07:45] VITALS: BP 114/65; PULSE 62; RESP 12; TEMP 36.7; O2SAT 99
[2020-03-18 08:54] VITALS: BMI 24.3
[2020-03-18 13:15] VITALS: BP 114/65; PULSE 62; RESP 16; TEMP 36.7; O2SAT 99
[2020-03-18 13:17] VITALS: BMI 24.3
--- NOTE | 2020-03-18 13:18 | NURSING ---
Discharged to [facility]. Report called to Celia.
== END 2020-03-18 13:15 | disposition skilled nursing facility (03) | DRG 57 ==
PROVIDERS: Admitting Provider Internal Medicine; Visit Provider Internal Medicine
DX: I69.354 Hemiplegia and hemiparesis following cerebral infarction affecting left non-dominant side (principal); N39.0 Urinary tract infection, site not specified; G93.49 Other encephalopathy; I48.0 Paroxysmal atrial fibrillation; E78.5 Hyperlipidemia, unspecified; E11.9 Type 2 diabetes mellitus without complications; I10 Essential (primary) hypertension; Z86.12 Personal history of poliomyelitis; F41.9 Anxiety disorder, unspecified; F32.9 Major depressive disorder, single episode, unspecified; Z91.11 Patient's noncompliance with dietary regimen; E86.0 Dehydration; B96.20 Unspecified Escherichia coli [E. coli] as the cause of diseases classified elsewhere; R15.9 Full incontinence of feces; I69.398 Other sequelae of cerebral infarction; J32.3 Chronic sphenoidal sinusitis; I69.392 Facial weakness following cerebral infarction; G47.30 Sleep apnea, unspecified; K21.9 Gastro-esophageal reflux disease without esophagitis; N95.2 Postmenopausal atrophic vaginitis
CPT/HCPCS: 36415; 70450; 73502; 80048; 80053; 80061; 80202; 81001; 81002; 82274; 82962; 83036; 83735; 84100; 84443; 85014; 85018; 85025; 85027; 87070; 87077; 87086; 87088; 87186; 87205; 87635; 87641; 92507; 92523; 92526; 92610; 94762; 97032; 97110; 97112; 97116; 97129; 97140; 97150; 97162; 97166; 97530; 97535; 97537; 97542; 97802; 97803; 99251; J7030; J7040; J7050; A4216; G0463; U0003